=== PATIENT | male | born 1955 | race Caucasian/White ===

== ENCOUNTER 2018-08-02 17:07 | Emergency (ER) | payer OTHER, SELFPAY ==
--- NOTE | 2018-08-02 17:13 | PC.NURSE ---
Called for triage at 1710, pt not in waiting area. Pt was seen going to parking lot.
--- NOTE | 2018-08-02 17:24 | PC.NURSE ---
Pt has not returned to waiting room, 2nd call. no answer.
[2018-08-02 17:50] VITALS: BP 228/118; PULSE 97; RESP 18; TEMP 35.8; O2SAT 100; BMI 33.0
--- NOTE | 2018-08-02 18:03 | ED.OVERDOSE ---
HPI - Overdose General Chief Complaint: Toxicology Problem Stated Complaint: stated needs to detox Time Seen by Provider: 08/02/18 18:03 Source: patient Mode of arrival: ambulatory Limitations: no limitations History of Present Illness HPI Narrative: The patient is a heavy drinker, he admits to daily heavy drinking. He presents with mild abdominal pain. No nausea vomiting. He has no history of seizure activity, blackouts and does not remember a history of tremors. He does not feel well. He has diabetes, he is not eating well and taking care of him physical. he has no fever, chills, chest pain or dyspnea. He is not vomiting. He has no melena or GI discomfort otherwise. although in this area, he has lived in the [facility] for many years. He has undergone is stressful changes that have increased his alcohol consumption. He is now here hoping to improve himself. Related Data Previous Rx's Medication Instructions Recorded cephalexin 500 mg PO BID #20 cap 11/03/16 Allergies Allergy/AdvReac Type Severity Reaction Status Date / Time No Known Drug Allergies Allergy Verified 08/02/18 17:49 Review of Systems Review of Systems ROS Unobtainable: All systems reviewed & are unremarkable except as noted in HPI and below Constitutional Denies chills, Denies fever(s), Denies lethargy and Denies weakness Eyes Denies blurry vision and Denies loss of vision Cardiovascular Denies chest pain, Denies irregular heart rhythm, Denies lightheadedness, Denies palpitations, Denies dyspnea, Denies dyspnea on exertion and Denies orthopnea Respiratory Denies cough, Denies dyspnea, Denies dyspnea on exertion and Denies wheezing Gastrointestinal Gastrointestinal: Reports abdominal pain, Denies belching, Denies melena, Denies bloating, Denies nausea and Denies vomiting Musculoskeletal Denies back pain, Denies muscle weakness, Denies numbness and Denies tingling Integumentary/Breasts Denies pruritus, Denies erythema, Denies rash and Denies wounds Neurologic Denies loss of vision, Denies numbness, Denies tingling and Denies weakness Endocrine Denies palpitations Allergic/Immunologic Denies wheezing PFSH Medical History Diabetes (Acute) Hypertension (Acute) Surgical History No history of previous surgery (Acute) Social History Smoking Status: Never smoker alcohol intake: current Social History Smoking Status: Never smoker alcohol intake: current Exam Initial Vital Signs Initial Vital Signs: Vital Signs Temperature 96.4 F L 08/02/18 17:50 Pulse Rate 97 H 08/02/18 17:50 Respiratory Rate 18 08/02/18 17:50 Blood Pressure 228/118 H 08/02/18 17:50 Pulse Oximetry 100 08/02/18 17:50 Const General: cooperative, well developed, No well groomed and other ( he smells of alcohol.) Nutritional Appearance: well nourished Orientation: alert, awake, oriented x3 and not confused Limitations: other limitations ( Cooperative.) [facility] Head: normocephalic and atraumatic Nose: external nose normal Mouth: oral mucosae normal and moist mucous membranes Throat: posterior oropharynx normal, tonsils normal and uvula midline Eyes General: appearance normal, both eyes and all related structures Eyelids: eyelids normal Conjunctivae: conjunctivae normal Sclera: sclerae normal ( no icterus) and scleral abnormality Pupils: PERRL EOM: EOM intact bilaterally Chest Chest: normal inspection of the chest Resp Effort & Inspection: normal respiratory effort, able to speak in complete sentences, no respiratory distress and no use of accessory muscles Auscultation: clear to auscultation bilaterally, no rales, no rhonchi and no wheezes Cardio Rate: regular rate Rhythm: regular rhythm Heart Sounds: no click, no gallops, no murmurs and no rubs Pulses: normal peripheral pulses GI Inspection: non-distended Palpation: soft, no hepatosplenomegaly, No guarding, No pulsatile mass and No tender Auscultation: normal bowel sounds Back/Spine/Pelvis Back: No CVA tenderness Cervical Spine: cervical ROM normal and No pain with cervical ROM Thoracic/Lumbar Spine: thoracic and lumbar spine normal to inspection Skin General: no rashes or lesions noted, No jaundice and No petechiae Extrem Other: left toe amputation. Ft are vascularly intact, but lack light touch sensation. Course Course Narrative: the patient is awake, for more coherent. He is a little shaky. He is agreeable to going to detox from the ER. His medications are unknown. He will need medications to find, and possibly prescribed. He will need medications for detox. If the detox bed is obtained, the necessary meds will be prescribed by the incoming ER doctor. Orders Ordered: Discontinued Medications Sodium Chloride (Normal Saline 0.9%) 1,000 mls @ 1,000 mls/hr IV BOLUS ONE Stop: 08/02/18 19:02 Last Infusion: 08/02/18 20:07 Dose: 0 mls/hr Admin: 08/02/18 18:44 Dose: 1,000 mls/hr Thiamine HCl 100 mg/ Dextrose 51 mls @ 204 mls/hr IV NOW ONE Stop: 08/02/18 18:04 Last Infusion: 08/02/18 19:07 Dose: 0 mls/hr Admin: 08/02/18 18:44 Dose: 204 mls/hr Lorazepam (Ativan) 1 mg IV NOW ONE Stop: 08/03/18 02:13 Last Admin: 08/03/18 02:19 Dose: 1 mg Lorazepam (Ativan) 1 mg IV NOW ONE Stop: 08/03/18 03:19 Last Admin: 08/03/18 03:20 Dose: 1 mg Vital Signs - 8 hr 08/03/18 04:15 Pulse Rate 101 H Respiratory Rate 20 Blood Pressure [Left Arm] 154/93 H Pulse Oximetry 95 MDM - Overdose Lab Data Result diagrams: 08/02/18 18:35 08/02/18 18:35 Lab Results 08/02/18 08/02/18 08/02/18 Range/Units 18:35 18:35 20:21 WBC 4.7 (4.5-11.0) X10^3/uL RBC 4.68 (4.5-5.9) X10^6/uL Hgb 15.7 (13.5-17.5) g/dL Hct 46.4 (41-53) % MCV 99.1 (80-100) fL MCH 33.6 (26-34) PG MCHC 33.9 (30-36) % RDW 13.6 (11.6-14.8) % Plt Count 147 L (150-400) X10^3/uL Neut % (Auto) 58.9 (50-75) % Lymph % (Auto) 26.3 (25-40) % [place] % (Auto) 12.5 (3-14) % Eos % (Auto) 0.4 L (2-4) % Baso % (Auto) 1.9 (0-2) % Neut # (Auto) 2800 (9696-4427) /uL Lymph # (Auto) 1300 (5989-2777) /uL [place] # (Auto) 600 (0-900) /uL Eos # (Auto) 0 (0-450) /uL Baso # (Auto) 100 (0-100) /uL Sodium 140 (137-145) mmol/L Potassium 3.5 (3.4-5.1) mmol/L Chloride 97 L (98-107) mmol/L Carbon Dioxide 28 (22-32) mmol/L BUN 6 L (9-20) mg/dL Creatinine 0.70 (0.66-1.25) mg/dL Estimated GFR > 60.0 (>60) mL/min BUN/Creatinine Ratio 8.6 (6-22) Glucose 304 H (80-110) mg/dL Calcium 8.5 (8.4-10.2) mg/dL Magnesium 2.2 (1.6-2.3) mg/dL Total Bilirubin 1.2 (0.2-1.3) mg/dL Conjugated Bilirubin 0.0 (0.0-0.3) md/dL Unconjugated Bilirubin 0.5 (0.0-1.1) mg/dL AST 292 H (17-59) IU/L ALT 135 H (21-72) IU/L Alkaline Phosphatase 155 H (38-126) U/L Total Protein 7.7 (6.3-8.2) g/dL Albumin 4.3 (3.5-5.0) g/dL Globulin 3.4 (1.7-4.1) g/dL Albumin/Globulin Ratio 1.3 (1.0-2.8) Lipase 133 (23-300) U/L Urine Opiates Screen Negative (Negative) Ur Oxycodone Screen Negative (Negative) Urine Methadone Screen Negative (Negative) Ur Barbiturates Screen Negative (Negative) U Tricyclic Antidepress Negative (Negative) Ur Phencyclidine Scrn Negative (Negative) Ur Amphetamines Screen Negative (Negative) U Methamphetamines Scrn Negative (Negative) Ur MDMA Scrn (Ecstasy) Negative (Negative) U Benzodiazepines Scrn Negative (Negative) Urine Cocaine Screen Negative (Negative) U Marijuana (THC) Screen Negative (Negative) Ethyl Alcohol 360 mg/dL Urine Dip Bedside Urine Glucose 250 mg/dl Bedside Urine Bilirubin - Negative Bedside Urine Ketone - Negative Urine Specific [place] 1.005 Bedside Urine Occult Blood - Negative Bedside Urine pH 6.0 Bedside Urine Protein - Negative Bedside Urine Urobilinogen - Negative Bedside Urine Nitrite - Negative Bedside Urine Leukocytes - Negative Esterase ECG Data Attestation: I personally reviewed and interpreted this ECG as follows: ( Normal sinus rhythm rate [address] T wave changes. Pattern consistent with pulmonary disease. IVCD. No ectopy. No acute ST T wave elevations.) Discharge Plan Departure Patient Disposition: Home Clinical Impression: Alcoholism Diabetes Qualifiers: Diabetes mellitus type: type 2 Diabetes mellitus shelter insulin use: unspecified shelter insulin use status Diabetes mellitus complication status: with neurologic complications Diabetes mellitus complication detail: with unspecified neuropathy Qualified Code(s): E11.40 - Type 2 diabetes mellitus with diabetic neuropathy, unspecified Instructions: Alcohol Use Disorder Activity Restrictions/Additional Instructions: You will be discharged from the ER, we have discussed a detox center. If the appropriate bed is available, you will be prescribed meds and help arrange you going to the detox center. IV detox center does not have availability for you, you will be discharged and you need to follow up with her own doctor for these arrangements. Return to an ER as necessary. Prescriptions: No Action cephalexin 500 MG capsule 500 mg PO BID Qty: 20 RF: 0
[2018-08-02] MEDS: SODIUM CHLORIDE 0.9% 1,000 ML 1000 ML IV (18:44)
[2018-08-02] MEDS: THIAMINE 100 MG in DEXTROSE 5 % IN WATER 50 ML 204 ML IV (18:44)
[2018-08-02 19:06] LABS: Alanine Aminotransferase 135 IU/L (21-72); Albumin 4.3 g/dL (3.5-5.0); Albumin Globulin Ratio 1.3 (1.0-2.8); Alkaline Phosphatase 155 U/L (38-126); Aspartate Aminotransferase 292 IU/L (17-59); BUN Creatinine Ratio 8.6 (6-22); Bilirubin Total 1.2 mg/dL (0.2-1.3); Bilirubin Unconjugated 0.5 mg/dL (0.0-1.1); Blood Urea Nitrogen 6 mg/dL (9-20); Calcium 8.5 mg/dL (8.4-10.2); Carbon Dioxide 28 mmol/L (22-32); Chloride 97 mmol/L (98-107); Estimated Glomerular Filt Rate > 60.0 mL/min (>60); Globulin 3.4 g/dL (1.7-4.1); Glucose 304 mg/dL (80-110); HEMOLYSIS < 15 (0-50); Lipase 133 U/L (23-300); Magnesium 2.2 mg/dL (1.6-2.3); Potassium 3.5 mmol/L (3.4-5.1); Sodium 140 mmol/L (137-145); Total Protein 7.7 g/dL (6.3-8.2)
[2018-08-02 19:13] LABS: Ethanol (ETOH) 360 mg/dL
[2018-08-02 19:21] LABS: Add Manual Diff / Slide Review NO; Basophils Absolute Auto 100 /uL (0-100); Basophils Percent Auto 1.9 % (0-2); Eosinophils Absolute Auto 0 /uL (0-450); Eosinophils Percent Auto 0.4 % (2-4); Hematocrit 46.4 % (41-53); Hemoglobin 15.7 g/dL (13.5-17.5); Lymphocytes Absolute Auto 1300 /uL (1100-4500); Lymphocytes Percent Auto 26.3 % (25-40); Mean Corpuscular HGB Conc 33.9 % (30-36); Mean Corpuscular Hemoglobin 33.6 PG (26-34); Mean Corpuscular Volume 99.1 fL (80-100); Monocytes Absolute Auto 600 /uL (0-900); Monocytes Percent Auto 12.5 % (3-14); Neutrophils Absolute Auto 2800 /uL (1500-7000); Neutrophils Percent Auto 58.9 % (50-75); Red Blood Cell Count 4.68 X10^6/uL (4.5-5.9); Red Cell Distribution Width 13.6 % (11.6-14.8); White Blood Cell Count 4.7 X10^3/uL (4.5-11.0)
[2018-08-02 19:23] LABS: Platelet Count 147 X10^3/uL (150-400)
[2018-08-02 20:19] VITALS: BP 216/115; PULSE 93; RESP 18; O2SAT 98
[2018-08-02 20:22] VITALS: BP 198/100
--- NOTE | 2018-08-02 20:22 | PC.NURSE ---
assumed care of pt and report received from HIEN Swan for continuation of care. Pt awake and states needs to use restroom. IVF of NS completed. Pt ambulated to the bathroom in stable gait. Oriented x3, reports I wanted to run away from everything to get help but ended up here. he states he is from [place]. Calm and cooperative. CIWA test done with 0 result. Noted HTN and pt reports is not compliant with his medications-Metoprolol and Lisinopril of unknown dose. Urine obtained and sent out to lab.
[2018-08-02 20:35] LABS: Urine Amphetamines Negative (Negative); Urine Barbiturates Negative (Negative); Urine Benzodiazepines Negative (Negative); Urine Cocaine Negative (Negative); Urine MDMA Negative (Negative); Urine Methadone Negative (Negative); Urine Methamphetamines Negative (Negative); Urine Morphine/Opi cutoff 2000 Negative (Negative); Urine Oxycodone Negative (Negative); Urine Phencyclidine Negative (Negative); Urine Tetrahydrocannabinol Negative (Negative); Urine Tricyclic Antidepressant Negative (Negative)
[2018-08-02 21:49] VITALS: BP 144/89; PULSE 92; RESP 20; TEMP 36.4; O2SAT 100
[2018-08-02 22:51] VITALS: BP 149/91; PULSE 93; RESP 14; O2SAT 98
--- NOTE | 2018-08-02 23:25 | PC.NURSE ---
Escorted pt to his car to retrieve his cell phone. Pt able to ambulate in stable gait. Pt cooperative and appropriate. Provided oral hydration.
[2018-08-03] MEDS: LORazepam 2 MG/ML SYRINGE 1 MG IV ×2 (02:19→03:20)
--- NOTE | 2018-08-03 03:12 | PC.NURSE ---
Pt medicated with Ativan 1mg for feeling anxious and agitation and mild tremor. Pt reports feeling a little better but requesting for additional dose. Pt appears to be calmer and cooperative at this time.
--- NOTE | 2018-08-03 03:50 | PC.NURSE ---
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 Escorted pt to parking lot. Pt asked this RN whether he could have a can of beer in the car. Pt requested to go back to ER for further evaluation and treatment. Pt reports feeling not well at this time. Pt currently under multiple situational stress and lost everything.
--- NOTE | 2018-08-03 03:52 | PC.NURSE ---
Pt appears to be resting at this time with eupnea after two doses of Ativan 1mg IV.
[2018-08-03 04:15] VITALS: BP 154/93; PULSE 101; RESP 20; O2SAT 95
[2018-08-03] MEDS: LORazepam 0.5 MG TABLET 1 MG PO (08:07)
[2018-08-03 09:56] VITALS: BP 205/124; PULSE 117; RESP 22; O2SAT 96
[2018-08-03] MEDS: LORazepam 0.5 MG TABLET 2 MG PO ×2 (10:01→12:08)
[2018-08-03 11:30] VITALS: BP 194/102; PULSE 97; RESP 16; O2SAT 98
[2018-08-03 13:10] VITALS: BP 192/108; PULSE 116; RESP 20; O2SAT 97
== END 2018-08-03 13:12 | disposition home or self-care (01) ==
PROVIDERS: Emergency Medicine; Emergency Provider Emergency Medicine
DX: F10.20 Alcohol dependence, uncomplicated (principal)
CPT/HCPCS: 36591; 80053; 80076; 80305; 80320; 81003; 82962; 83690; 83735; 85025; 93005; 96361; 96365; 96375; 96376; 99284; 99285; J2060

== ENCOUNTER 2018-08-03 15:09 | Inpatient (IN) | payer OTHER, MEDICARE, SELFPAY ==
[2018-08-03] VITALS (9 sets, daily range): BP systolic 160–213; BP diastolic 76–154; PULSE 67–120; RESP 19–24; TEMP 36.7–36.9; O2SAT 94–97; BMI 33.0
[2018-08-03 15:56] LABS: Add Manual Diff / Slide Review NO; Basophils Absolute Auto 100 /uL (0-100); Basophils Percent Auto 1.1 % (0-2); Eosinophils Absolute Auto 0 /uL (0-450); Eosinophils Percent Auto 0.1 % (2-4); Hematocrit 44.3 % (41-53); Hemoglobin 15.3 g/dL (13.5-17.5); Lymphocytes Absolute Auto 700 /uL (1100-4500); Lymphocytes Percent Auto 11.5 % (25-40); Mean Corpuscular HGB Conc 34.6 % (30-36); Mean Corpuscular Hemoglobin 34.1 PG (26-34); Mean Corpuscular Volume 98.4 fL (80-100); Monocytes Absolute Auto 800 /uL (0-900); Monocytes Percent Auto 12.4 % (3-14); Neutrophils Absolute Auto 4800 /uL (1500-7000); Neutrophils Percent Auto 74.9 % (50-75); Platelet Count 147 X10^3/uL (150-400); Red Cell Distribution Width 13.4 % (11.6-14.8); White Blood Cell Count 6.5 X10^3/uL (4.5-11.0)
[2018-08-03] MEDS: SODIUM CHLORIDE 0.9% 1,000 ML 1000 ML IV (15:58)
[2018-08-03] MEDS: LORazepam 2 MG/ML SYRINGE IV ×2 (15:58→22:13)
[2018-08-03 16:01] LABS: Alanine Aminotransferase 152 IU/L (21-72); Albumin 4.5 g/dL (3.5-5.0); Albumin Globulin Ratio 1.3 (1.0-2.8); Alkaline Phosphatase 173 U/L (38-126); Aspartate Aminotransferase 421 IU/L (17-59); BUN Creatinine Ratio 11.4 (6-22); Bilirubin Total 2.5 mg/dL (0.2-1.3); Blood Urea Nitrogen 8 mg/dL (9-20); Calcium 8.8 mg/dL (8.4-10.2); Carbon Dioxide 23 mmol/L (22-32); Chloride 96 mmol/L (98-107); Estimated Glomerular Filt Rate > 60.0 mL/min (>60); Ethanol (ETOH) < 10 mg/dL; Globulin 3.5 g/dL (1.7-4.1); Glucose 182 mg/dL (80-110); Lipase 92 U/L (23-300); Sodium 134 mmol/L (137-145)
[2018-08-03 16:02] LABS: HEMOLYSIS 64 (0-50); Potassium 3.8 mmol/L (3.4-5.1)
[2018-08-03] MEDS: MAGNESIUM SULFATE 2 GM, FOLIC ACID 1 MG, THIAMINE 100 MG, MULTIVITAMIN 10 ML in SODIUM ... IV (16:14)
--- NOTE | 2018-08-03 16:15 | ED.ALCOHOL ---
HPI - Alcohol General Chief Complaint: Toxicology Problem Stated Complaint: rehab is sending him back for treatment, ETOH Time Seen by Provider: 08/03/18 15:42 Source: patient Mode of arrival: wheelchair Limitations: no limitations History of Present Illness HPI narrative: Patient is a 63-year-old male discharged from this facility an hour ago to go to detox. His he had been here for 18 hr with alcohol withdrawal he did start to have some symptoms he was given Ativan for it. By the time he reached the rehab detox facility they said his detox was above their ability. He was sent back for admission. Patient is shaking denies any hallucinations, he is tachycardic. He denies any other symptoms at this time MD complaint: alcohol withdrawal Last drink: hours (ago) Chronic alcohol use: Yes Previous visits for alcohol intoxication: Yes Recent trauma: No Related Data Home Medications Medication Instructions Recorded Confirmed carvedilol 12.5 mg PO BID 08/03/18 08/03/18 losartan 50 mg PO DAILY 08/03/18 08/03/18 Previous Rx's Medication Instructions Recorded lorazepam [Ativan] 1 mg PO QD-BID PRN #35 tab 08/03/18 Allergies Allergy/AdvReac Type Severity Reaction Status Date / Time No Known Drug Allergies Allergy Verified 08/03/18 15:41 Review of Systems Review of Systems ROS Unobtainable: All systems reviewed & are unremarkable except as noted in HPI and below Constitutional Denies chills, Denies fever(s), Denies lethargy and Denies weakness ENT Ears, Nose, Mouth, and Throat: Denies change in voice, Denies neck pain and Denies sore throat Cardiovascular Denies chest pain, Denies irregular heart rhythm, Denies lightheadedness, Denies palpitations, Denies dyspnea, Denies dyspnea on exertion and Denies orthopnea Respiratory Denies cough, Denies dyspnea, Denies dyspnea on exertion and Denies wheezing Gastrointestinal Gastrointestinal: Denies abdominal pain, Denies change in bowel habits, Denies diarrhea, Denies nausea and Denies vomiting Genitourinary Denies hematuria, Denies flank pain, Denies urinary incontinence and Denies urinary urgency Musculoskeletal Denies neck pain Integumentary/Breasts Denies pruritus, Denies erythema, Denies rash and Denies wounds Neurologic Denies weakness Psychiatric Reports as per HPI, Denies homicidal ideation and Denies suicidal ideation Endocrine Denies palpitations Allergic/Immunologic Denies wheezing PFSH Medical History Amputated great toe of left foot (Acute) Diabetic neuropathy (Acute) Alcoholism /alcohol abuse (Acute) Hypertension (Acute) Diabetes (Acute) History of amputation of toe (Acute) Surgical History History of appendectomy (Acute) History of tonsillectomy (Acute) No history of previous surgery (Acute) Social History household members: none Smoking Status: Never smoker alcohol intake: current Social History household members: none Smoking Status: Never smoker alcohol intake: current Exam Initial Vital Signs Initial Vital Signs: Vital Signs Temperature 98.5 F 08/03/18 15:41 Pulse Rate 120 H 08/03/18 15:41 Respiratory Rate 20 08/03/18 15:41 Blood Pressure 204/115 H 08/03/18 15:41 Pulse Oximetry 97 08/03/18 15:41 GENERAL: alert elderly male visibly shaking alert oriented x3 HEENT: Head atraumatic,EOMI, pupils reactive, face symmetric CARDIOVASCULAR: Regular rate and rhythm without murmurs, rubs or gallops. RESPIRATORY: Breath sounds equal bilaterally, no wheezes rales or rhonchi. ABDOMEN: Soft, nontender. Normoactive bowel sounds all 4 quadrants. No guarding or rebound. EXTREMITIES: Normal range of motion, no clubbing or edema. Neurovascularly intact NEUROLOGICAL: alert oriented tremors moving all extremities SKIN: Warm, dry, no laceration, no petechiae, no rashes or lesions. Course Orders Ordered: ED Orders 08/03/18 15:35 Complete Blood Count AUTO DIFF Stat Comprehensive Metabolic Panel Stat Ethanol (ETOH) Stat Lipase Stat 08/03/18 16:30 Consult to Dietitian, Adult Routine 08/03/18 16:32 Education, smoking cessation ONGOING 08/03/18 16:35 Consult to Discharge Planning Routine Consult to International Affairs Vice President Routine 08/03/18 18:54 Consult to Dietitian, Adult Routine 08/04/18 Complete Blood Count AUTO DIFF Routine Comprehensive Metabolic Panel Routine Hemoglobin A1C % Routine Magnesium Routine Carvedilol (Coreg) 12.5 mg PO BID LYNDA Clonidine HCl (Catapres) 0.1 mg PO Q4HR PRN PRN Reason: Alcohol Withdrawal Dextrose (D50w) 25 gm IV PRN PRN; Protocol PRN Reason: Hypoglycemia Enoxaparin Sodium (Lovenox) 40 mg SUBCUT DAILY LYNDA Folic Acid (Folic Acid) 1 mg PO DAILY LYNDA Haloperidol (Haldol) 5 mg IV Q1HR PRN PRN Reason: Hallucinations Magnesium Sulfate 2 gm/ Folic Acid 1 mg/ Thiamine HCl 100 mg / Multivitamins 10 ml/ Sodium Chloride 1,015.2 mls @ 125 mls/hr IV NOW ONE Stop: 08/03/18 23:50 Last Admin: 08/03/18 16:14 Dose: 125 mls/hr Sodium Chloride (Normal Saline 0.9%) 1,000 mls @ 100 mls/hr IV CONT LYNDA Insulin Aspart (Novolog Flexpen) 0 unit SUBCUT ACHS LYNDA; Protocol Lorazepam (Ativan) 1 mg PO Q8HR LYNDA; Protocol Losartan Potassium (Cozaar) 50 mg PO DAILY [facility] Multivitamins (Tab-A-Andrea) 1 tab PO DAILY [facility] Ondansetron HCl (Zofran Odt) 4 mg PO Q8HR PRN PRN Reason: Nausea And Vomiting Ondansetron HCl (Zofran) 4 mg IV Q8HR PRN PRN Reason: Nausea And Vomiting Thiamine HCl (Vitamin B-1) 100 mg PO DAILY LYNDA Stop: 08/06/18 09:01 Discontinued Medications Sodium Chloride (Normal Saline 0.9%) 1,000 mls @ 1,000 mls/hr IV BOLUS ONE Stop: 08/03/18 16:41 Last Infusion: 08/03/18 17:01 Dose: 0 mls/hr Admin: 08/03/18 15:58 Dose: 1,000 mls/hr Lorazepam (Ativan) 2 mg IV NOW ONE Stop: 08/03/18 15:43 Last Admin: 08/03/18 15:58 Dose: 2 mg Vital Signs - 8 hr 08/03/18 15:41 08/03/18 16:32 08/03/18 17:45 Temperature 98.5 F Pulse Rate 120 H 108 H 114 H Respiratory Rate 20 24 20 Blood Pressure 204/115 H 197/110 H Blood Pressure [Left Arm] 190/154 H Pulse Oximetry 97 94 96 08/03/18 18:18 Temperature 98.3 F Pulse Rate 92 H Respiratory Rate 19 Blood Pressure 160/105 H Blood Pressure [Left Arm] Pulse Oximetry 96 MDM - Alcohol Medical Records Attestation: I reviewed the patient's medical records. Lab Data Attestation: I reviewed the patient's lab results. Result diagrams: 08/03/18 15:35 08/03/18 15:35 Labs: Lab Results 08/03/18 08/03/18 Range/Units 15:35 15:35 WBC 6.5 (4.5-11.0) X10^3/uL RBC 4.50 (4.5-5.9) X10^6/uL Hgb 15.3 (13.5-17.5) g/dL Hct 44.3 (41-53) % MCV 98.4 (80-100) fL MCH 34.1 H (26-34) PG MCHC 34.6 (30-36) % RDW 13.4 (11.6-14.8) % Plt Count 147 L (150-400) X10^3/uL Neut % (Auto) 74.9 (50-75) % Lymph % (Auto) 11.5 L (25-40) % [place] % (Auto) 12.4 (3-14) % Eos % (Auto) 0.1 L (2-4) % Baso % (Auto) 1.1 (0-2) % Neut # (Auto) 4800 (2320-4966) /uL Lymph # (Auto) 700 L (4383-2338) /uL [place] # (Auto) 800 (0-900) /uL Eos # (Auto) 0 (0-450) /uL Baso # (Auto) 100 (0-100) /uL Sodium 134 L (137-145) mmol/L Potassium 3.8 (3.4-5.1) mmol/L Chloride 96 L (98-107) mmol/L Carbon Dioxide 23 (22-32) mmol/L BUN 8 L (9-20) mg/dL Creatinine 0.70 (0.66-1.25) mg/dL Estimated GFR > 60.0 (>60) mL/min BUN/Creatinine Ratio 11.4 (6-22) Glucose 182 H D (80-110) mg/dL Calcium 8.8 (8.4-10.2) mg/dL Total Bilirubin 2.5 H (0.2-1.3) mg/dL AST 421 H (17-59) IU/L ALT 152 H (21-72) IU/L Alkaline Phosphatase 173 H (38-126) U/L Total Protein 8.0 (6.3-8.2) g/dL Albumin 4.5 (3.5-5.0) g/dL Globulin 3.5 (1.7-4.1) g/dL Albumin/Globulin Ratio 1.3 (1.0-2.8) Lipase 92 (23-300) U/L Ethyl Alcohol < 10 mg/dL Point of Care Testing Glucose POC 171 MDM Narrative Medical decision making narrative: patient tachycardic were remains tremulous. Actively going through alcohol withdrawal. Dr. tello happily accepts. EMERSON-Lonnie for Alcohol Withdrawal from [employer] on 08/03/2018 All calculations should be rechecked by clinician prior to use RESULT SUMMARY: 12 points Patients with scores ?9 may require medication for withdrawal. INPUTS: Nausea/vomiting ?> 2 = (More severe symptoms) Tremor ?> 5 = (More severe symptoms) Paroxysmal sweats ?> 4 = Beads of sweat obvious on forehead Anxiety ?> 1 = Mildly anxious Agitation ?> 0 = Normal activity Tactile disturbances ?> 0 = None Auditory disturbances ?> 0 = Not present Visual disturbances ?> 0 = Not present Headache/fullness in head ?> 0 = Not Present Orientation/clouding of sensorium ?> 0 = Oriented, can do serial additions Discharge Plan Departure Patient Disposition: Admitted As Inpatient Clinical Impression: Alcohol withdrawal syndrome Qualifiers: Complication of substance-induced condition: uncomplicated Qualified Code(s): F10.230 - Alcohol dependence with withdrawal, uncomplicated Discharge Date/Time: 08/03/18 17:45 Interventions: ED Discharge Assessment Last Done: 08/03/18 17:45 Admit Date/Time: 08/03/18 16:04 Admit Provider: Shelby Laurent
--- NOTE | 2018-08-03 16:20 | ED_ITS ---
HPI - Alcohol General Chief Complaint: Toxicology Problem Stated Complaint: rehab is sending him back for treatment, ETOH Time Seen by Provider: 08/03/18 15:42 Source: patient Mode of arrival: wheelchair Limitations: no limitations History of Present Illness HPI narrative: Patient is a 63-year-old male discharged from this facility an hour ago to go to detox. His he had been here for 18 hr with alcohol withdrawal he did start to have some symptoms he was given Ativan for it. By the time he reached the rehab detox facility they said his detox was above their ability. He was sent back for admission. Patient is shaking denies any hallucinations, he is tachycardic. He denies any other symptoms at this time MD complaint: alcohol withdrawal Last drink: hours (ago) Chronic alcohol use: Yes Previous visits for alcohol intoxication: Yes Recent trauma: No Related Data Home Medications Medication Instructions Recorded Confirmed carvedilol 12.5 mg PO BID 08/03/18 08/03/18 losartan 50 mg PO DAILY 08/03/18 08/03/18 Previous Rx's Medication Instructions Recorded lorazepam [Ativan] 1 mg PO QD-BID PRN #35 tab 08/03/18 Allergies Allergy/AdvReac Type Severity Reaction Status Date / Time No Known Drug Allergies Allergy Verified 08/03/18 15:41 Review of Systems Review of Systems ROS Unobtainable: All systems reviewed & are unremarkable except as noted in HPI and below Constitutional Denies chills, Denies fever(s), Denies lethargy and Denies weakness ENT Ears, Nose, Mouth, and Throat: Denies change in voice, Denies neck pain and Den ies sore throat Cardiovascular Denies chest pain, Denies irregular heart rhythm, Denies lightheadedness, Denies palpitations, Denies dyspnea, Denies dyspnea on exertion and Denies orthopnea Respiratory Denies cough, Denies dyspnea, Denies dyspnea on exertion and Denies wheezing Gastrointestinal Gastrointestinal: Denies abdominal pain, Denies change in bowel habits, Denies diarrhea, Denies nausea and Denies vomiting Genitourinary Denies hematuria, Denies flank pain, Denies urinary incontinence and Denies urinary urgency Musculoskeletal Denies neck pain Integumentary/Breasts Denies pruritus, Denies erythema, Denies rash and Denies wounds Neurologic Denies weakness Psychiatric Reports as per HPI, Denies homicidal ideation and Denies suicidal ideation Endocrine Denies palpitations Allergic/Immunologic Denies wheezing PFSH Medical History Amputated great toe of left foot (Acute) Diabetic neuropathy (Acute) Alcoholism /alcohol abuse (Acute) Hypertension (Acute) Diabetes (Acute) History of amputation of toe (Acute) Surgical History History of appendectomy (Acute) History of tonsillectomy (Acute) No history of previous surgery (Acute) Social History household members: none Smoking Status: Never smoker alcohol intake: current Social History household members: none Smoking Status: Never smoker alcohol intake: current Exam Initial Vital Signs Initial Vital Signs: Vital Signs Temperature 98.5 F 08/03/18 15:41 Pulse Rate 120 H 08/03/18 15:41 Respiratory Rate 20 08/03/18 15:41 Blood Pressure 204/115 H 08/03/18 15:41 Pulse Oximetry 97 08/03/18 15:41 GENERAL: alert elderly male visibly shaking alert oriented x3 HEENT: Head atraumatic,EOMI, pupils reactive, face symmetric CARDIOVASCULAR: Regular rate and rhythm without murmurs, rubs or gallops. RESPIRATORY: Breath sounds equal bilaterally, no wheezes rales or rhonchi. ABDOMEN: Soft, nontender. Normoactive bowel sounds all 4 quadrants. No guarding or rebound. EXTREMITIES: Normal range of motion, no clubbing or edema. Neurovascularly intact NEUROLOGICAL: alert oriented tremors moving all extremities SKIN: Warm, dry, no laceration, no petechiae, no rashes or lesions. Course Orders Ordered: ED Orders 08/03/18 15:35 Complete Blood Count AUTO DIFF Stat Comprehensive Metabolic Panel Stat Ethanol (ETOH) Stat Lipase Stat 08/03/18 16:30 Consult to Dietitian, Adult Routine 08/03/18 16:32 Education, smoking cessation ONGOING 08/03/18 16:35 Consult to Discharge Planning Routine Consult to Human Factors Advisor Lead Routine 08/03/18 18:54 Consult to Dietitian, Adult Routine 08/04/18 Complete Blood Count AUTO DIFF Routine Comprehensive Metabolic Panel Routine Hemoglobin A1C % Routine Magnesium Routine Carvedilol (Coreg) 12.5 mg PO BID LYNDA Clonidine HCl (Catapres) 0.1 mg PO Q4HR PRN PRN Reason: Alcohol Withdrawal Dextrose (D50w) 25 gm IV PRN PRN; Protocol PRN Reason: Hypoglycemia Enoxaparin Sodium (Lovenox) 40 mg SUBCUT DAILY LYNDA Folic Acid (Folic Acid) 1 mg PO DAILY LYNDA Haloperidol (Haldol) 5 mg IV Q1HR PRN PRN Reason: Hallucinations Magnesium Sulfate 2 gm/ Folic Acid 1 mg/ Thiamine HCl 100 mg / Multivitamins 10 ml/ Sodium Chloride 1,015.2 mls @ 125 mls/hr IV NOW ONE Stop: 08/03/18 23:50 Last Admin: 08/03/18 16:14 Dose: 125 mls/hr Sodium Chloride (Normal Saline 0.9%) 1,000 mls @ 100 mls/hr IV CONT LYNDA Insulin Aspart (Novolog Flexpen) 0 unit SUBCUT ACHS LYNDA; Protocol Lorazepam (Ativan) 1 mg PO Q8HR LYNDA; Protocol Losartan Potassium (Cozaar) 50 mg PO DAILY [facility] Multivitamins (Tab-A-Andrea) 1 tab PO DAILY [facility] Ondansetron HCl (Zofran Odt) 4 mg PO Q8HR PRN PRN Reason: Nausea And Vomiting Ondansetron HCl (Zofran) 4 mg IV Q8HR PRN PRN Reason: Nausea And Vomiting Thiamine HCl (Vitamin B-1) 100 mg PO DAILY [facility] Stop: 08/06/18 09:01 Discontinued Medications Sodium Chloride (Normal Saline 0.9%) 1,000 mls @ 1,000 mls/hr IV BOLUS ONE Stop: 08/03/18 16:41 Last Infusion: 08/03/18 17:01 Dose: 0 mls/hr Admin: 08/03/18 15:58 Dose: 1,000 mls/hr Lorazepam (Ativan) 2 mg IV NOW ONE Stop: 08/03/18 15:43 Last Admin: 08/03/18 15:58 Dose: 2 mg Vital Signs - 8 hr 08/03/18 15:41 08/03/18 16:32 08/03/18 17:45 Temperature 98.5 F Pulse Rate 120 H 108 H 114 H Respiratory Rate 20 24 20 Blood Pressure 204/115 H 197/110 H Blood Pressure [Left Arm] 190/154 H Pulse Oximetry 97 94 96 08/03/18 18:18 Temperature 98.3 F Pulse Rate 92 H Respiratory Rate 19 Blood Pressure 160/105 H Blood Pressure [Left Arm] Pulse Oximetry 96 MDM - Alcohol Medical Records Attestation: I reviewed the patient's medical records. Lab Data Attestation: I reviewed the patient's lab results. Result diagrams: 08/03/18 15:35 08/03/18 15:35 Labs: Lab Results 08/03/18 08/03/18 Range/Units 15:35 15:35 WBC 6.5 (4.5-11.0) X10^3/uL RBC 4.50 (4.5-5.9) X10^6/uL Hgb 15.3 (13.5-17.5) g/dL Hct 44.3 (41-53) % MCV 98.4 (80-100) fL MCH 34.1 H (26-34) PG MCHC 34.6 (30-36) % RDW 13.4 (11.6-14.8) % Plt Count 147 L (150-400) X10^3/uL Neut % (Auto) 74.9 (50-75) % Lymph % (Auto) 11.5 L (25-40) % [place] % (Auto) 12.4 (3-14) % Eos % (Auto) 0.1 L (2-4) % Baso % (Auto) 1.1 (0-2) % Neut # (Auto) 4800 (0848-3475) /uL Lymph # (Auto) 700 L (4366-3829) /uL [place] # (Auto) 800 (0-900) /uL Eos # (Auto) 0 (0-450) /uL Baso # (Auto) 100 (0-100) /uL Sodium 134 L (137-145) mmol/L Potassium 3.8 (3.4-5.1) mmol/L Chloride 96 L (98-107) mmol/L Carbon Dioxide 23 (22-32) mmol/L BUN 8 L (9-20) mg/dL Creatinine 0.70 (0.66-1.25) mg/dL Estimated GFR > 60.0 (>60) mL/min BUN/Creatinine Ratio 11.4 (6-22) Glucose 182 H D (80-110) mg/dL Calcium 8.8 (8.4-10.2) mg/dL Total Bilirubin 2.5 H (0.2-1.3) mg/dL AST 421 H (17-59) IU/L ALT 152 H (21-72) IU/L Alkaline Phosphatase 173 H (38-126) U/L Total Protein 8.0 (6.3-8.2) g/dL Albumin 4.5 (3.5-5.0) g/dL Globulin 3.5 (1.7-4.1) g/dL Albumin/Globulin Ratio 1.3 (1.0-2.8) Lipase 92 (23-300) U/L Ethyl Alcohol < 10 mg/dL Point of Care Testing Glucose POC 171 MDM Narrative Medical decision making narrative: patient tachycardic were remains tremulous. Actively going through alcohol withdrawal. Dr. tello happily accepts. EMERSON-Lonnie for Alcohol Withdrawal from [employer] on 08/03/2018 All calculations should be rechecked by clinician prior to use RESULT SUMMARY: 12 points Patients with scores ?9 may require medication for withdrawal. INPUTS: Nausea/vomiting ?> 2 = (More severe symptoms) Tremor ?> 5 = (More severe symptoms) Paroxysmal sweats ?> 4 = Beads of sweat obvious on forehead Anxiety ?> 1 = Mildly anxious Agitation ?> 0 = Normal activity Tactile disturbances ?> 0 = None Auditory disturbances ?> 0 = Not present Visual disturbances ?> 0 = Not present Headache/fullness in head ?> 0 = Not Present Orientation/clouding of sensorium ?> 0 = Oriented, can do serial additions Discharge Plan Departure Patient Disposition: Admitted As Inpatient Clinical Impression: Alcohol withdrawal syndrome Qualifiers: Complication of substance-induced condition: uncomplicated Qualified Code(s): F10.230 - Alcohol dependence with withdrawal, uncomplicated Discharge Date/Time: 08/03/18 17:45 Interventions: ED Discharge Assessment Last Done: 08/03/18 17:45 Admit Date/Time: 08/03/18 16:04 Admit Provider: Shelby Laurent
--- NOTE | 2018-08-03 16:38 | PM.HP.1 ---
History of Present Illness Date Patient Seen: 08/03/18 Time Patient Seen: 16:40 Chief complaint: rehab is sending him back for treatment, ETOH Narrative: This is a 63-year-old male with an apparent long history of alcoholism who is in acute alcohol withdrawal and was unable to be treated at the detox unit because of his physical symptoms. He was in the emergency department last night and then was placed at the alcohol withdrawal treatment unit this morning and was then sent back to the emergency department because of his symptoms. He has been sweaty and shaking with a CIWA score of 15. He tells me that he lives in [place] and that his primary care physician is at the [facility], but he recently moved here to live on a sailboat, although he is still living in a motel room at this time. 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 He drinks 3 quarts a day of Coors beer or essentially he says ?24 pack a day?. He also has diabetes with significant neuropathy and previous infections in his feet that led to amputation of several toes. He used to take metformin but stopped about 6 months ago because of diarrhea and has not resumed. He does not know what his A1c or his sugars have been. Patient History Medical History Amputated great toe of left foot (Acute) Diabetic neuropathy (Acute) Alcoholism /alcohol abuse (Acute) Hypertension (Acute) Diabetes (Acute) History of amputation of toe (Acute) Surgical History History of appendectomy (Acute) History of tonsillectomy (Acute) No history of previous surgery (Acute) Social History Smoking Status: Never smoker alcohol intake: current Family & Social History Family history unavailable: Yes Social History: He is adopted so does not know any family history. He has 3 adult children all living in [place], 1 of them in halfway. He is homeless, currently living in a motel room, with plans to move into a sailboat. 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 He drinks 24 Coors beers a day and occasional marijuana. He denies smoking Tobacco & Substance use: Smoking Status Never smoker alcohol intake current alcohol intake frequency 3 or more drinks per day Substance Use Type does not use Meds Home Medications Medication Instructions Recorded Confirmed Type carvedilol 12.5 mg PO BID 08/03/18 08/03/18 History lorazepam [Ativan] 1 mg PO QD-BID PRN #35 tab 08/03/18 08/03/18 Rx losartan 50 mg PO DAILY 08/03/18 08/03/18 History Allergies Allergy/AdvReac Type Severity Reaction Status Date / Time No Known Drug Allergies Allergy Verified 08/03/18 15:41 Review of Systems Review of Systems Positive for tremor, sweating, agitation. Negative for fevers, chills, coughing, chest pain, abdominal pain, nausea, vomiting, diarrhea, bleeding, dysuria, rashes, joint pain, seizures, headaches, trouble talking, new allergies. All systems reviewed & are unremarkable except as noted in HPI and below Exam Vital Signs (past 8 hours): - 08/03/18 15:41 Temperature 98.5 F Pulse Rate 120 H Respiratory Rate 20 Blood Pressure 204/115 H Pulse Oximetry 97 Oxygen Delivery Method Room Air Narrative Exam Narrative: He is alert, oriented x3, and in moderate distress from alcohol withdrawal. His tremor is only slight. His asterixis is just barely there. Pupils are equally round and reactive to light and accommodation. Sclerae are pink and nonicteric. Extraocular muscles are intact. His eyes make a Saccade movement both up and down and side to side. No lymph nodes are felt head, neck, supraclavicular area. There is no thyromegaly. JVD is less than 6 cm and no carotid bruits are heard. Heart is regular rate and rhythm without murmur. Lungs are clear to auscultation bilaterally Abdomen is soft, nontender, no organomegaly, bowel sounds active. Extremities have no ankle edema. The left large toe and 2nd toe are amputated without residual ulcerations noted on either foot. Skin no rashes or jaundice. Noting the amputations on the left foot. No angiomata seen. Cranial nerves 2-12 tested intact. Motor function is 5/5 throughout. Deep tendon reflexes are symmetric and normal. There is a fine tremor of the outstretched arms. His voice is also tremulous and low volume. Sensation is grossly intact in his feet except for very fine sensation. Objective Labs Result Diagrams: 08/03/18 15:35 08/03/18 15:35 Labs: Laboratory Results - last 24 hr 08/03/18 08/03/18 15:35 15:35 WBC 6.5 RBC 4.50 Hgb 15.3 Hct 44.3 MCV 98.4 MCH 34.1 H MCHC 34.6 RDW 13.4 Plt Count 147 L Neut % (Auto) 74.9 Lymph % (Auto) 11.5 L [place] % (Auto) 12.4 Eos % (Auto) 0.1 L Baso % (Auto) 1.1 Neut # (Auto) 4800 Lymph # (Auto) 700 L [place] # (Auto) 800 Eos # (Auto) 0 Baso # (Auto) 100 Sodium 134 L Potassium 3.8 Chloride 96 L Carbon Dioxide 23 BUN 8 L Creatinine 0.70 Estimated GFR > 60.0 BUN/Creatinine Ratio 11.4 Glucose 182 H D Calcium 8.8 Total Bilirubin 2.5 H AST 421 H ALT 152 H Alkaline Phosphatase 173 H Total Protein 8.0 Albumin 4.5 Globulin 3.5 Albumin/Globulin Ratio 1.3 Lipase 92 Ethyl Alcohol < 10 Assessment & Plan Assessment & Plan narrative: 1 - Alcohol Withdrawal - continue CIWA protocol using thiamine, multivitamin supplementation and checking magnesium. He will be on routine lorazepam p.o. along with IV as needed lorazepam and haloperidol. - his alcohol level was 360 last night and is now less than 10. The urine drug screen was negative. 2 - Diabetes Mellitus 2 - checking A1c and treating with Aspart medium dose correctional scale, to be adjusted as indicated by blood sugars checked. 3 - Diabetic Peripheral Neuropathy - this is apparently a dense sensation loss and not a pins and needles discomfort at this point. - he has already had to have 2 toes amputated on the left foot due to ulcerating infections. 4 - Hypertension - resume carvedilol and losartan as indicated. 5 - Alcoholic Hepatitis - his exam hints at possible mild ascites. Consider imaging. The liver enzymes are quite elevated and will be followed again in the morning.
--- NOTE | 2018-08-03 16:42 | P.HP_ITS ---
History of Present Illness Date Patient Seen: 08/03/18 Time Patient Seen: 16:40 Chief complaint: rehab is sending him back for treatment, ETOH Narrative: This is a 63-year-old male with an apparent long history of alcoholism who is in acute alcohol withdrawal and was unable to be treated at the detox unit because of his physical symptoms. He was in the emergency department last night and then was placed at the alcohol withdrawal treatment unit this morning and was then sent back to the emergency department because of his symptoms. He has been sweaty and shaking with a CIWA score of 15. He tells me that he lives in [place] and that his primary care physician is at the [facility], but he recently moved here to live on a sailboat, although he is still living in a motel room at this time. 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 He drinks 3 quarts a day of Coors beer or essentially he says ?24 pack a day?. He also has diabetes with significant neuropathy and previous infections in his feet that led to amputation of several toes. He used to take metformin but stopped about 6 months ago because of diarrhea and has not resumed. He does not know what his A1c or his sugars have been. Patient History Medical History Amputated great toe of left foot (Acute) Diabetic neuropathy (Acute) Alcoholism /alcohol abuse (Acute) Hypertension (Acute) Diabetes (Acute) History of amputation of toe (Acute) Surgical History History of appendectomy (Acute) History of tonsillectomy (Acute) No history of previous surgery (Acute) Social History Smoking Status: Never smoker alcohol intake: current Family & Social History Family history unavailable: Yes Social History: He is adopted so does not know any family history. He has 3 adult children all living in [place], 1 of them in care home. He is homeless, currently living in a motel room, with plans to move into a sailboat. 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 He drinks 24 Coors beers a day and occasional marijuana. He denies smoking Tobacco & Substance use: Smoking Status Never smoker alcohol intake current alcohol intake frequency 3 or more drinks per day Substance Use Type does not use Meds Home Medications Medication Instructions Recorded Confirmed Type carvedilol 12.5 mg PO BID 08/03/18 08/03/18 History lorazepam [Ativan] 1 mg PO QD-BID PRN #35 tab 08/03/18 08/03/18 Rx losartan 50 mg PO DAILY 08/03/18 08/03/18 History Allergies Allergy/AdvReac Type Severity Reaction Status Date / Time No Known Drug Allergies Allergy Verified 08/03/18 15:41 Review of Systems Review of Systems Positive for tremor, sweating, agitation. Negative for fevers, chills, coughing, chest pain, abdominal pain, nausea, vomiting, diarrhea, bleeding, dysuria, rashes, joint pain, seizures, headaches, trouble talking, new allergies. All systems reviewed & are unremarkable except as noted in HPI and below Exam Vital Signs (past 8 hours): - 08/03/18 15:41 Temperature 98.5 F Pulse Rate 120 H Respiratory Rate 20 Blood Pressure 204/115 H Pulse Oximetry 97 Oxygen Delivery Method Room Air Narrative Exam Narrative: He is alert, oriented x3, and in moderate distress from alcohol withdrawal. His tremor is only slight. His asterixis is just barely there. Pupils are equally round and reactive to light and accommodation. Sclerae are pink and nonicteric. Extraocular muscles are intact. His eyes make a Saccade movement both up and down and side to side. No lymph nodes are felt head, neck, supraclavicular area. There is no thyromegaly. JVD is less than 6 cm and no carotid bruits are heard. Heart is regular rate and rhythm without murmur. Lungs are clear to auscultation bilaterally Abdomen is soft, nontender, no organomegaly, bowel sounds active. Extremities have no ankle edema. The left large toe and 2nd toe are amputated without residual ulcerations noted on either foot. Skin no rashes or jaundice. Noting the amputations on the left foot. No angiomata seen. Cranial nerves 2-12 tested intact. Motor function is 5/5 throughout. Deep tendon reflexes are symmetric and normal. There is a fine tremor of the outstretched arms. His voice is also tremulous and low volume. Sensation is grossly intact in his feet except for very fine sensation. Objective Labs Result Diagrams: 08/03/18 15:35 08/03/18 15:35 Labs: Laboratory Results - last 24 hr 08/03/18 08/03/18 15:35 15:35 WBC 6.5 RBC 4.50 Hgb 15.3 Hct 44.3 MCV 98.4 MCH 34.1 H MCHC 34.6 RDW 13.4 Plt Count 147 L Neut % (Auto) 74.9 Lymph % (Auto) 11.5 L [place] % (Auto) 12.4 Eos % (Auto) 0.1 L Baso % (Auto) 1.1 Neut # (Auto) 4800 Lymph # (Auto) 700 L [place] # (Auto) 800 Eos # (Auto) 0 Baso # (Auto) 100 Sodium 134 L Potassium 3.8 Chloride 96 L Carbon Dioxide 23 BUN 8 L Creatinine 0.70 Estimated GFR > 60.0 BUN/Creatinine Ratio 11.4 Glucose 182 H D Calcium 8.8 Total Bilirubin 2.5 H AST 421 H ALT 152 H Alkaline Phosphatase 173 H Total Protein 8.0 Albumin 4.5 Globulin 3.5 Albumin/Globulin Ratio 1.3 Lipase 92 Ethyl Alcohol < 10 Assessment & Plan Assessment & Plan narrative: 1 - Alcohol Withdrawal - continue CIWA protocol using thiamine, multivitamin supplementation and checking magnesium. He will be on routine lorazepam p.o. along with IV as needed lorazepam and haloperidol. - his alcohol level was 360 last night and is now less than 10. The urine drug screen was negative. 2 - Diabetes Mellitus 2 - checking A1c and treating with Aspart medium dose correctional scale, to be adjusted as indicated by blood sugars checked. 3 - Diabetic Peripheral Neuropathy - this is apparently a dense sensation loss and not a pins and needles discomfort at this point. - he has already had to have 2 toes amputated on the left foot due to ulcerating infections. 4 - Hypertension - resume carvedilol and losartan as indicated. 5 - Alcoholic Hepatitis - his exam hints at possible mild ascites. Consider imaging. The liver enzymes are quite elevated and will be followed again in the morning.
[2018-08-03] MEDS: CARVEDILOL 12.5 MG TABLET PO (20:25)
[2018-08-03] MEDS: cloNIDine 0.1 MG TABLET PO (21:26)
[2018-08-03] MEDS: LOSARTAN 50 MG TABLET 100 MG PO (22:14)
[2018-08-04] VITALS (12 sets, daily range): BP systolic 135–196; BP diastolic 76–97; PULSE 64–87; RESP 16–20; TEMP 36.1–36.6; O2SAT 95–99
[2018-08-04] MEDS: SODIUM CHLORIDE 0.9% 1,000 ML 100 ML IV ×2 (00:15→16:16)
[2018-08-04] MEDS: cloNIDine 0.1 MG TABLET PO ×3 (00:17→09:31)
[2018-08-04] MEDS: LORazepam 2 MG/ML SYRINGE IV ×5 (00:18→16:18)
[2018-08-04] MEDS: ACETAMINOPHEN 325 MG TABLET 650 MG PO ×2 (00:22→05:35)
[2018-08-04 04:58] LABS: Add Manual Diff / Slide Review NO; Basophils Absolute Auto 0 /uL (0-100); Eosinophils Absolute Auto 0 /uL (0-450); Eosinophils Percent Auto 0.7 % (2-4); Hematocrit 41.3 % (41-53); Hemoglobin 14.2 g/dL (13.5-17.5); Lymphocytes Absolute Auto 1000 /uL (1100-4500); Lymphocytes Percent Auto 22.6 % (25-40); Mean Corpuscular HGB Conc 34.4 % (30-36); Mean Corpuscular Hemoglobin 33.7 PG (26-34); Mean Corpuscular Volume 98.1 fL (80-100); Monocytes Absolute Auto 600 /uL (0-900); Monocytes Percent Auto 13.6 % (3-14); Neutrophils Absolute Auto 2700 /uL (1500-7000); Neutrophils Percent Auto 62.1 % (50-75); Platelet Count 116 X10^3/uL (150-400); Red Blood Cell Count 4.21 X10^6/uL (4.5-5.9); Red Cell Distribution Width 13.4 % (11.6-14.8); White Blood Cell Count 4.4 X10^3/uL (4.5-11.0)
[2018-08-04 05:03] LABS: Alanine Aminotransferase 123 IU/L (21-72); Albumin 3.5 g/dL (3.5-5.0); Albumin Globulin Ratio 1.2 (1.0-2.8); Alkaline Phosphatase 120 U/L (38-126); Aspartate Aminotransferase 246 IU/L (17-59); BUN Creatinine Ratio 11.7 (6-22); Bilirubin Total 2.8 mg/dL (0.2-1.3); Blood Urea Nitrogen 7 mg/dL (9-20); Calcium 7.9 mg/dL (8.4-10.2); Carbon Dioxide 27 mmol/L (22-32); Chloride 100 mmol/L (98-107); Estimated Glomerular Filt Rate > 60.0 mL/min (>60); Globulin 2.9 g/dL (1.7-4.1); Glucose 207 mg/dL (80-110); HEMOLYSIS 21 (0-50); Magnesium 2.3 mg/dL (1.6-2.3); Potassium 3.3 mmol/L (3.4-5.1); Sodium 136 mmol/L (137-145); Total Protein 6.4 g/dL (6.3-8.2)
[2018-08-04 05:10] LABS: Hemoglobin A1C% w Est Avg Glu 7.5 % (4.0-6.0)
[2018-08-04] MEDS: POTASSIUM CHLORIDE 40 MEQ in SODIUM CHLORIDE 0.9% 500 ML 130 ML IV (06:42)
[2018-08-04] MEDS: INSULIN ASPART 100 UNIT/ML INSULN PEN SUBCUT ×3 (09:30→19:07)
[2018-08-04] MEDS: ENOXAPARIN 40 MG/0.4 ML SYRINGE SUBCUT (09:31)
[2018-08-04] MEDS: CARVEDILOL 12.5 MG TABLET PO ×2 (09:31→22:28)
[2018-08-04] MEDS: THIAMINE 100 MG TABLET PO (09:31)
[2018-08-04] MEDS: MULTIVITAMIN 1 TABLET 1 TAB PO (09:31)
[2018-08-04] MEDS: FOLIC ACID 1 MG TABLET PO (09:31)
[2018-08-04] MEDS: LOSARTAN 50 MG TABLET 100 MG PO (09:32)
--- NOTE | 2018-08-04 10:23 | PC.NURSE ---
PT OBVIOUSLY STRUGGLING WITH ETOH WITHDRAWL SYMPTOMS- HE IS BORDERLINE TACHYCARDIC, SWEATING PROFUSELY, TREMULOUS LIMBS AND SPEECH-HE REPORTS NEVER HAVING WITHDRAWL SX LIKE THIS BEFORE AND IS HOPEFUL FOR HELP - WHETHER THIS BE A CRISIS CENTER, OR OUT PT SETTING, NO NOTED SEIZURE ACTIVITY. DENIES PAIN AND CALCULATED CIWA SCORE 15 - MEDICATED WITH 2MG PO LORAZ AND HIS PRESCRIBED HTN MEDS-
--- NOTE | 2018-08-04 11:24 | CM.DANOTE ---
Patient is a 63 year old male who was admitted on 08/03/18 for ETOH withdrawal. Pt has MCR for insurance and his PCP is not listed. EMR was reviewed. Per MD, pt was discharged from the ER yesterday to [facility] but became tachycardic enroute and was brought back to the ER and admitted for withdrawal management. Per RN, pt currently medicated but alert and oriented and likely not stable for d/c yet today. SW met bedside with pt and explained role and updated white board and pt was A&O x3 and able to participate in goal directed discussion. Hx of Use: Patient states that he has been drinking off and on for a very long time, most of my adult life. Pt denies any current use of other drugs. Hx of Tx: Patient states that he was arrested about 7 years ago and went through deferment program and participated in Intensive Outpt and outpt ETOH treatment for 5 years and maintained sobriety for those 5 years but once treatment ended pt relapsed and has been drinking heavily for the past year and a half around 24 pack of beer a day. Pt denies any current enrollment in CD or supportive services at this time. Hx MH: Pt denies any previous dx of mental health and has not been enrolled in MH counseling although he states that his regular CD counseling previously was helpful. Pt acknowledges that currently he is feeling depressed with his current life stressors but denies any Suicidal ideation. Supports: Patient states that he lived in [place] for many years and worked in [place] until he recently lost his job, in part from his increased drinking, and now moved from his [place] house with a tentative plan of finding a boat to live on in the [facility] for now although most of his belongings were stollen out of his vehicle while he was at [facility] prior to his admit here at [facility]. Patient's friends and supports are mostly in the [place] area and he denies any family or supports here in [facility]. Plan: Patient states that he is very disappointed in himself for his poor decisions and is requesting to go to [facility] for further detox support and help with getting into further treatment but also to be connected with community resources for applying for unemployment, social security, housing options, and other assistance. Pt seems motivated and insightful and agreeable with plan of [facility] but states he does not feel medically stable for d/c yet and still requiring some sedation. SW called [facility] and they confirmed that pt will need to do another phone screen and clinicals to be faxed when stable for d/c. [facility] currently has openings for male detox but SW will need to call again each day to determine if they still have openings. SW updated RN. RAZA Rai Discharge Planning/Care Management CM Discharge Assessment Start: 08/04/18 11:18 Freq: Status: Active Protocol: Document 08/04/18 11:18 BF (Rec: 08/04/18 11:23 BF [id number]) Discharge Planning Assessment Assigned Spark Tester RAZA Lopez DPOA/Assigned Designee Name none Advance Directives? No History Provided By Patient Medical Record Has Patient been admitted in last 30 No days? Prior Living Arrangements Homeless Household Members none Type of transporation used prior to Drives own vehicle admit Comment Patient recently moved from [place] and was staying in a motel room for a few days while planning to look for a boat to live on in [facility]. Has few personal belongings currently, what he has is in his vehicle. Independent with ADL's Yes Is patient alert and oriented? Yes Caregiver for Another No Patient/Family Preference Drug/Alcohol Rehab Comment Pt here for ETOH withdrawal and requesting voluntary ETOH treatment/support. Barriers to Discharge No Discharge Plan Drug Rehabilitation Transportation Arrangement If [facility] , then taxi transport provided . Referrals Initiated Other Additional Comment [facility] will need clinicals and phone screen with pt when he is medically stable. Whiteboard Updated in Patient Room with Yes name and ext. # of Spark Tester Review Status In Process Please Provide Date Initial DC 08/04/18 Assessment Was Performed Next Review Type Continued Stay Review
[2018-08-04] MEDS: LORazepam 1 MG TABLET PO (13:13)
--- NOTE | 2018-08-04 15:04 | PM.PN.1 ---
Subjective Date Patient Seen: 08/04/18 Interval history: Nathan Crow is a 63-year-old male with a past medical history significant for hypertension and alcoholism who was unable to be treated at the detox unit due to hypertension and degree of alcohol withdrawal. The patient is sitting in bed and appears anxious. His last CIWA score was 15. He reports that he ?feels tense inside.? He denies formication. He has intermittent headache, nausea and tremulousness controlled with Ativan. His blood pressure is better controlled today with SBP of 140-150's on his home carvedilol and losartan with clonidine in addition for withdrawal. He current denies chest pain, shortness of breath, abdominal pain, nausea, vomiting, fever, chills, dysuria, diarrhea constipation. He is voiding and eliminating without difficulty. He tolerating a carbohydrate consistent diet. He is ambulating minimally. Exam Vital Signs (past 8 hours): - 08/04/18 07:46 08/04/18 11:00 Temperature 97.0 F L 97.2 F L Pulse Rate 66 64 Respiratory Rate 16 16 Blood Pressure 152/97 H 155/84 H Pulse Oximetry 98 97 Oxygen Delivery Method Room Air Oxygen Flow Rate 0 Narrative Exam Narrative: General: Older gentleman sitting in bed and in no acute distress, appears anxious well-developed, well-nourished, appropriately interactive. HEENT: Normocephalic, atraumatic. External ears without defect. Pupils equal, round, and reactive to light. Anicteric sclerae, moist conjunctivae, and no lid lag. Neck: Supple with full range of motion. No lymphadenopathy or thyromegaly. Cardiovascular: Regular rhythm and rate without murmurs, rubs, or gallops appreciated. Pulmonary: Clear to auscultation bilaterally without crackles, wheezes, or rhonchi. Normal respiratory effort with no use of accessory muscles. Abdomen: Soft, bowel sounds present, nontender, mildly protuberant but does not appear distended. No fluid wave. No hepatosplenomegaly or masses appreciated. Extremities: No clubbing, cyanosis, or edema. Skin: Normal temperature, turgor, and texture; no rash, ulcers, or subcutaneous nodules appreciated. No stigmata of liver disease. Neurological: Cranial nerves grossly intact. Psychiatric: Normal mood and affect. Alert and oriented to person, place, and time. Objective Labs Result Diagrams: 08/04/18 04:37 08/04/18 04:37 Labs: Laboratory Results - last 24 hr 08/03/18 08/03/18 08/03/18 15:35 15:35 18:15 WBC 6.5 RBC 4.50 Hgb 15.3 Hct 44.3 MCV 98.4 MCH 34.1 H MCHC 34.6 RDW 13.4 Plt Count 147 L Neut % (Auto) 74.9 Lymph % (Auto) 11.5 L [place] % (Auto) 12.4 Eos % (Auto) 0.1 L Baso % (Auto) 1.1 Neut # (Auto) 4800 Lymph # (Auto) 700 L [place] # (Auto) 800 Eos # (Auto) 0 Baso # (Auto) 100 Sodium 134 L Potassium 3.8 Chloride 96 L Carbon Dioxide 23 BUN 8 L Creatinine 0.70 Estimated GFR > 60.0 BUN/Creatinine Ratio 11.4 Glucose 182 H D Hemoglobin A1c Calcium 8.8 Magnesium Total Bilirubin 2.5 H AST 421 H ALT 152 H Alkaline Phosphatase 173 H Total Protein 8.0 Albumin 4.5 Globulin 3.5 Albumin/Globulin Ratio 1.3 Lipase 92 Nasal Screen MRSA (PCR) Negative for mrsa Ethyl Alcohol < 10 08/04/18 08/04/18 08/04/18 04:37 04:37 04:37 WBC 4.4 L RBC 4.21 L Hgb 14.2 Hct 41.3 MCV 98.1 MCH 33.7 MCHC 34.4 RDW 13.4 Plt Count 116 L Neut % (Auto) 62.1 Lymph % (Auto) 22.6 L [place] % (Auto) 13.6 Eos % (Auto) 0.7 L Baso % (Auto) 1.0 Neut # (Auto) 2700 Lymph # (Auto) 1000 L [place] # (Auto) 600 Eos # (Auto) 0 Baso # (Auto) 0 Sodium 136 L Potassium 3.3 L Chloride 100 Carbon Dioxide 27 BUN 7 L Creatinine 0.60 L Estimated GFR > 60.0 BUN/Creatinine Ratio 11.7 Glucose 207 H Hemoglobin A1c 7.5 H Calcium 7.9 L Magnesium 2.3 Total Bilirubin 2.8 H AST 246 H ALT 123 H Alkaline Phosphatase 120 D Total Protein 6.4 Albumin 3.5 Globulin 2.9 Albumin/Globulin Ratio 1.2 Lipase Nasal Screen MRSA (PCR) Ethyl Alcohol Assessment & Plan Assessment & Plan narrative: Nathan Crow is a 63-year-old male with a past medical history significant for hypertension and alcoholism who was unable to be treated at the detox unit due to hypertension and degree of alcohol withdrawal. 1. Acute alcohol withdrawal, present on admission. Active. -Continue CIWA protocol using thiamine, multivitamin supplementation and checking and repleting electrolytes. He will be on routine lorazepam p.o. along with IV as needed lorazepam and haloperidol. -His alcohol level was 360 night prior to admission and is now less than 10. The urine drug screen was negative. 2. Diabetes mellitus type 2, non-insulin using, chronic, present on admission. Stable. -Hemoglobin A1c 7.5% 07/2018. -Continue medium dose correction scale insulin. -Will consider starting metformin prior to discharge. Will need to be treated and followed outpatient. -Continue carbohydrate consistent diet. 3. 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 Stable. -This is apparently a dense sensation loss and not a pins and needles discomfort at this point. -He has already had to have 2 toes amputated on the left foot due to ulcerating infections. 4. Hypertension, chronic, present on admission. Active. -Resume carvedilol 12.5 mg twice daily and losartan 50 mg daily. Continue clonidine as indicated to treat alcohol withdrawal. 5. Alcoholic hepatitis, likely chronic, present on admission. Active. -The liver enzymes elevated in the 2:1 ratio indicative of alcohol-induced injury. Trending down. Continue to monitor LFTs daily and will consider abdominal imaging if LFTs acutely worsen. -Discussed alcohol cessation and encouraged him to abstain indefinitely. Disposition: Patient likely to discharge to treatment center in 1-2 days depending upon improvement in alcohol withdrawal symptoms and control of blood pressure.
--- NOTE | 2018-08-04 22:47 | PC.NURSE ---
timmy daniels pt reports feeling tense inside, asking for something to help him sleep. Called [facility] to discuss low CIWA scores and request for sleep med. New order received.
[2018-08-04] MEDS: TRAZODONE 50 MG TABLET 25 MG PO (23:26)
[2018-08-05] VITALS (11 sets, daily range): BP systolic 142–201; BP diastolic 67–108; PULSE 66–96; RESP 15–20; TEMP 36.2–37.1; O2SAT 92–97
[2018-08-05] MEDS: SODIUM CHLORIDE 0.9% 1,000 ML 1000 ML IV (02:23)
[2018-08-05] MEDS: ACETAMINOPHEN 325 MG TABLET 650 MG PO ×3 (02:25→20:45)
[2018-08-05] MEDS: LORazepam 2 MG/ML SYRINGE IV (04:39)
[2018-08-05 04:59] LABS: Add Manual Diff / Slide Review NO; Basophils Absolute Auto 100 /uL (0-100); Basophils Percent Auto 1.6 % (0-2); Eosinophils Absolute Auto 0 /uL (0-450); Eosinophils Percent Auto 1.1 % (2-4); Hematocrit 38.8 % (41-53); Hemoglobin 13.2 g/dL (13.5-17.5); Lymphocytes Absolute Auto 1000 /uL (1100-4500); Mean Corpuscular Hemoglobin 33.9 PG (26-34); Mean Corpuscular Volume 99.8 fL (80-100); Monocytes Absolute Auto 600 /uL (0-900); Monocytes Percent Auto 12.6 % (3-14); Neutrophils Absolute Auto 2700 /uL (1500-7000); Neutrophils Percent Auto 61.7 % (50-75); Platelet Count 108 X10^3/uL (150-400); Red Blood Cell Count 3.89 X10^6/uL (4.5-5.9); Red Cell Distribution Width 13.5 % (11.6-14.8); White Blood Cell Count 4.4 X10^3/uL (4.5-11.0)
[2018-08-05 05:08] LABS: Alanine Aminotransferase 98 IU/L (21-72); Albumin 3.2 g/dL (3.5-5.0); Albumin Globulin Ratio 1.1 (1.0-2.8); Alkaline Phosphatase 128 U/L (38-126); Aspartate Aminotransferase 151 IU/L (17-59); BUN Creatinine Ratio 11.7 (6-22); Bilirubin Total 1.7 mg/dL (0.2-1.3); Blood Urea Nitrogen 7 mg/dL (9-20); Calcium 8.2 mg/dL (8.4-10.2); Carbon Dioxide 24 mmol/L (22-32); Chloride 103 mmol/L (98-107); Estimated Glomerular Filt Rate > 60.0 mL/min (>60); Globulin 2.8 g/dL (1.7-4.1); Glucose 239 mg/dL (80-110); HEMOLYSIS < 15 (0-50); Potassium 3.6 mmol/L (3.4-5.1); Sodium 135 mmol/L (137-145)
--- NOTE | 2018-08-05 06:38 | PM.PN.1 ---
Subjective Date Patient Seen: 08/05/18 Interval history: Nathan Crow is a 63-year-old male with a past medical history significant for hypertension and alcoholism who was unable to be treated at the detox unit due to hypertension and degree of alcohol withdrawal. The patient is sitting in bed comfortably. His last CIWA score was 9. He reports that this morning he had a huge headache and felt tense which was relieved with Ativan. He reports that he slept well after Ativan was administered. He denies formication. He has intermittent headache, nausea and tremulousness controlled with Ativan. His blood pressure continues to be elevated with SBP of 170's on his home carvedilol and losartan and will adjust these medications today. He currently denies headache, tremulousness, lightheadedness or dizziness, chest pain, shortness of breath, abdominal pain, nausea, vomiting, fever, chills, dysuria, diarrhea constipation. He is voiding and eliminating without difficulty. He is tolerating a carbohydrate consistent diet. He is ambulating minimally and encouraged him to get up and ambulate in halls today. Exam Vital Signs (past 8 hours): - 08/04/18 23:57 08/05/18 04:35 Temperature 97.9 F 97.9 F Pulse Rate 72 72 Respiratory Rate 18 18 Blood Pressure 181/88 H 174/78 H Pulse Oximetry 98 97 Oxygen Delivery Method Room Air Oxygen Flow Rate 0 Narrative Exam Narrative: General: Older gentleman sitting in bed and in no acute distress, appears anxious well-developed, well-nourished, appropriately interactive. HEENT: Normocephalic, atraumatic. External ears without defect. Pupils equal, round, and reactive to light. Anicteric sclerae, moist conjunctivae, and no lid lag. Neck: Supple with full range of motion. No lymphadenopathy or thyromegaly. Cardiovascular: Regular rhythm and rate without murmurs, rubs, or gallops appreciated. Pulmonary: Clear to auscultation bilaterally without crackles, wheezes, or rhonchi. Normal respiratory effort with no use of accessory muscles. Abdomen: Soft, bowel sounds present, nontender, mildly protuberant but does not appear distended. No significant fluid wave. No hepatosplenomegaly or masses appreciated. Extremities: No clubbing, cyanosis, or edema. Skin: Normal temperature, turgor, and texture; no rash, ulcers, or subcutaneous nodules appreciated. No stigmata of liver disease. Neurological: Cranial nerves grossly intact. Psychiatric: Depressed mood and affect. Anxious. Alert and oriented to person, place, and time. Objective Labs Result Diagrams: 08/05/18 04:45 08/05/18 04:45 Labs: Laboratory Results - last 24 hr 08/05/18 08/05/18 04:45 04:45 WBC 4.4 L RBC 3.89 L Hgb 13.2 L Hct 38.8 L MCV 99.8 MCH 33.9 MCHC 34.0 RDW 13.5 Plt Count 108 L Neut % (Auto) 61.7 Lymph % (Auto) 23.0 L [place] % (Auto) 12.6 Eos % (Auto) 1.1 L Baso % (Auto) 1.6 Neut # (Auto) 2700 Lymph # (Auto) 1000 L [place] # (Auto) 600 Eos # (Auto) 0 Baso # (Auto) 100 Sodium 135 L Potassium 3.6 Chloride 103 Carbon Dioxide 24 BUN 7 L Creatinine 0.60 L Estimated GFR > 60.0 BUN/Creatinine Ratio 11.7 Glucose 239 H Calcium 8.2 L Magnesium 2.0 Total Bilirubin 1.7 H AST 151 H ALT 98 H Alkaline Phosphatase 128 H Total Protein 6.0 L Albumin 3.2 L Globulin 2.8 Albumin/Globulin Ratio 1.1 Assessment & Plan Assessment & Plan narrative: Nathan Crow is a 63-year-old male with a past medical history significant for hypertension and alcoholism who was unable to be treated at the detox unit due to hypertension and degree of alcohol withdrawal. 1. Acute alcohol withdrawal, present on admission. Active. -Continue CIWA protocol using thiamine and multivitamin supplementation and checking and repleting electrolytes. Placed patient on a short librium taper starting with 50 mg twice daily and haloperidol as needed. Stopped clonidine. -His alcohol level was 360 night prior to admission and on admission less than 10. The urine drug screen was negative. -Stopped IVF and will encourage PO intake. 2. Diabetes mellitus type 2, non-insulin using, chronic, present on admission. Stable. -Hemoglobin A1c 7.5% 07/2018. -Continue medium dose correction scale insulin. -Starting metformin 500 mg twice daily with food at lower dose due to intolerance in the past with higher doses. Will need to be treated and followed outpatient. -Continue carbohydrate consistent diet. 3. 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 Stable. -This is apparently a dense sensation loss and not a pins and needles discomfort at this point. -He has already had to have 2 toes amputated on the left foot due to ulcerating infections. 4. Hypertension, chronic, present on admission. Active. -Continue carvedilol but increased from 12.5 mg to 25 mg twice daily and switched losartan from 100 mg daily to 50 mg twice daily for better coverage. In addition added HCTZ 25 mg daily. Discontinued clonidine. 5. Alcoholic hepatitis, likely chronic, present on admission. Active. -The liver enzymes elevated in the 2:1 ratio indicative of alcohol-induced injury. Trending down. Continue to monitor LFTs daily and will consider abdominal imaging if LFTs acutely worsen. -Discussed alcohol cessation and encouraged him to abstain indefinitely. Disposition: Patient likely to discharge to treatment center in 1-2 days depending upon improvement in alcohol withdrawal symptoms and control of blood pressure.
[2018-08-05] MEDS: INSULIN ASPART 100 UNIT/ML INSULN PEN SUBCUT ×3 (08:37→17:17)
[2018-08-05] MEDS: ENOXAPARIN 40 MG/0.4 ML SYRINGE SUBCUT (08:38)
[2018-08-05] MEDS: THIAMINE 100 MG TABLET PO (08:39)
[2018-08-05] MEDS: LOSARTAN 50 MG TABLET PO ×2 (08:40→20:40)
[2018-08-05] MEDS: hydroCHLOROthiazide 25 MG TABLET PO (08:40)
[2018-08-05] MEDS: FOLIC ACID 1 MG TABLET PO (08:40)
[2018-08-05] MEDS: MULTIVITAMIN 1 TABLET 1 TAB PO (08:40)
[2018-08-05] MEDS: METFORMIN HCL 500 MG TABLET PO ×2 (08:42→17:18)
[2018-08-05] MEDS: chlordiazePOXIDE 25 MG CAPSULE 50 MG PO ×2 (08:42→20:44)
[2018-08-05] MEDS: CARVEDILOL 25 MG TABLET PO ×2 (08:47→20:40)
[2018-08-05] MEDS: HALOPERIDOL 5 MG/ML VIAL IV (13:19)
--- NOTE | 2018-08-05 17:08 | CM.DPC ---
DCP/continued: Reviewed chart. Per MD in AM rounds patient is not medically stable for discharge today. However, most likely will be ready in the next 24-48hrs. Met with patient explained role. Patient confirms that he would like to go to [facility] when medically stable. Patient provided with [facility] brochure and encouraged to call to do intake over the telephone. Patient agreeable. P: Anticipate [facility] if bed available and patient accepted at time of discharge. RN updated. RAZA Aldana
--- NOTE | 2018-08-05 18:04 | PC.NURSE ---
Addendum entered by Nohelia Jacques R.N. 08/05/18 20:51: 2145 - Pt reports increased anxiety. I am nervous about tomorrow. Reassurance provided. Explained care management roll in D/c planning. HS rx given as ordered. 1810 - Encouraged pt to ambulate in the fox following use of bathroom. Pt declined. Pt did place call to [facility]. Reported no beds available at this time. Pt to call back between 9 and 11 a.m. tomorrow. Original Note: 1620 - Pt reports feeling drowsy. SBA to void per urinal. Discussed treatment plan for the evening. Encouraged pt to call [facility]. Pt states, I just need a nap first. Discussed meal time and encouraged pt to call following dinner. Impulsive movements. Reinforced safety and call light use. Bed alarm on.
[2018-08-05] MEDS: TRAZODONE 50 MG TABLET 25 MG PO (23:47)
[2018-08-06] VITALS (10 sets, daily range): BP systolic 148–171; BP diastolic 72–92; PULSE 63–70; RESP 15–20; TEMP 36.1–36.8; O2SAT 94–97
[2018-08-06] MEDS: ACETAMINOPHEN 325 MG TABLET 650 MG PO (03:51)
[2018-08-06 05:08] LABS: Add Manual Diff / Slide Review NO; Basophils Absolute Auto 100 /uL (0-100); Eosinophils Absolute Auto 100 /uL (0-450); Eosinophils Percent Auto 1.3 % (2-4); Hematocrit 40.2 % (41-53); Hemoglobin 13.6 g/dL (13.5-17.5); Lymphocytes Absolute Auto 1500 /uL (1100-4500); Lymphocytes Percent Auto 26.5 % (25-40); Mean Corpuscular HGB Conc 33.9 % (30-36); Mean Corpuscular Hemoglobin 33.6 PG (26-34); Monocytes Absolute Auto 700 /uL (0-900); Monocytes Percent Auto 12.4 % (3-14); Neutrophils Absolute Auto 3300 /uL (1500-7000); Neutrophils Percent Auto 58.8 % (50-75); Platelet Count 126 X10^3/uL (150-400); Red Blood Cell Count 4.06 X10^6/uL (4.5-5.9); Red Cell Distribution Width 13.4 % (11.6-14.8); White Blood Cell Count 5.6 X10^3/uL (4.5-11.0)
[2018-08-06 05:19] LABS: Alanine Aminotransferase 94 IU/L (21-72); Albumin 3.3 g/dL (3.5-5.0); Albumin Globulin Ratio 1.1 (1.0-2.8); Alkaline Phosphatase 146 U/L (38-126); Aspartate Aminotransferase 111 IU/L (17-59); BUN Creatinine Ratio 17.1 (6-22); Bilirubin Total 1.2 mg/dL (0.2-1.3); Blood Urea Nitrogen 12 mg/dL (9-20); Calcium 9.6 mg/dL (8.4-10.2); Carbon Dioxide 27 mmol/L (22-32); Chloride 100 mmol/L (98-107); Estimated Glomerular Filt Rate > 60.0 mL/min (>60); Globulin 2.9 g/dL (1.7-4.1); Glucose 163 mg/dL (80-110); HEMOLYSIS < 15 (0-50); Magnesium 1.8 mg/dL (1.6-2.3); Potassium 3.4 mmol/L (3.4-5.1); Sodium 134 mmol/L (137-145); Total Protein 6.2 g/dL (6.3-8.2)
--- NOTE | 2018-08-06 05:22 | PC.NURSE ---
Patient has been awake and restless most of the night, appears drowsy with slow speech and movements. Bed alarm on, stands at side of bed to void. Trazadone 25mg PO was given at midnight, PO Tylenol given at 0400 for general aches. BP 140s-150s/70s, afebrile.
[2018-08-06] MEDS: MULTIVITAMIN 1 TABLET 1 TAB PO (09:18)
[2018-08-06] MEDS: hydroCHLOROthiazide 25 MG TABLET PO ×2 (09:18→12:13)
[2018-08-06] MEDS: LOSARTAN 50 MG TABLET PO ×2 (09:18→20:27)
[2018-08-06] MEDS: THIAMINE 100 MG TABLET PO (09:19)
[2018-08-06] MEDS: CARVEDILOL 25 MG TABLET PO ×2 (09:19→20:28)
[2018-08-06] MEDS: FOLIC ACID 1 MG TABLET PO (09:19)
[2018-08-06] MEDS: ENOXAPARIN 40 MG/0.4 ML SYRINGE SUBCUT (09:20)
[2018-08-06] MEDS: METFORMIN HCL 500 MG TABLET PO ×2 (09:27→17:41)
[2018-08-06] MEDS: chlordiazePOXIDE 25 MG CAPSULE 50 MG PO ×2 (09:28→21:17)
[2018-08-06] MEDS: INSULIN ASPART 100 UNIT/ML INSULN PEN SUBCUT ×3 (09:29→17:42)
[2018-08-06] MEDS: POTASSIUM CHLORIDE 40 MEQ in SODIUM CHLORIDE 0.9% 500 ML 130 ML IV (09:38)
[2018-08-06] MEDS: SODIUM CHLORIDE 0.9% FLUSH 10 ML IV (09:38)
[2018-08-06] MEDS: POTASSIUM CHLORIDE 20 MEQ TAB 40 MEQ PO (11:33)
[2018-08-06] MEDS: NYSTATIN CREAM 30 GM 1 APPLIC TOP (11:33)
--- NOTE | 2018-08-06 11:59 | PM.DS.1 ---
History of Present Illness Date Patient Seen: 08/06/18 Chief complaint: rehab is sending him back for treatment, ETOH Narrative: Written by Dr. Laurent: This is a 63-year-old male with an apparent long history of alcoholism who is in acute alcohol withdrawal and was unable to be treated at the detox unit because of his physical symptoms. He was in the emergency department last night and then was placed at the alcohol withdrawal treatment unit this morning and was then sent back to the emergency department because of his symptoms. He has been sweaty and shaking with a CIWA score of 15. He tells me that he lives in [place] and that his primary care physician is at the [facility], but he recently moved here to live on a sailboat, although he is still living in a motel room at this time. 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 He drinks 3 quarts a day of Coors beer or essentially he says ?24 pack a day?. He also has diabetes with significant neuropathy and previous infections in his feet that led to amputation of several toes. He used to take metformin but stopped about 6 months ago because of diarrhea and has not resumed. He does not know what his A1c or his sugars have been. Discharge Providers Date of admission: 08/03/18 16:04 Consults: 08/03/18 16:30 Consult to Dietitian, Adult Routine Comment: Reason For Exam: Malnourishment 08/03/18 16:35 Consult to Discharge Planning Routine Comment: Consult to Industrial Maintenance Repairer Helper Routine Comment: 08/03/18 18:54 Consult to Dietitian, Adult Routine Comment: Reason For Exam: assessed at high risk Discharge provider: Aide Askew DO Discharge Date: 08/06/18 Summary Hospital Course: Nathan Crow is a 63-year-old male with a past medical history significant for hypertension and alcoholism who was unable to be treated at the detox unit due to hypertension and degree of alcohol withdrawal. 1. Acute alcohol withdrawal, present on admission. Resolved. -Continued CIWA protocol which was discontinued as his CIWA scores are low and he is likely outside of the withdraw window and on a librium taper 50 twice daily, 25 mg twice daily, 25 mg once daily then stop. Continued thiamine and multivitamin supplementation. Repleted electrolytes as needed. Placed patient on a short librium taper starting with 50 mg twice daily -His alcohol level was 360 night prior to admission and on admission less than 10. The urine drug screen was negative. -Stopped IVF and encouraged PO intake. 2. Diabetes mellitus type 2, non-insulin using, chronic, present on admission. Stable. -Hemoglobin A1c 7.5% 07/2018. -Continued medium dose correction scale insulin. -Started metformin 500 mg twice daily with food at lower dose due to intolerance in the past with higher doses. Will need to be treated and followed outpatient. -Continued carbohydrate consistent diet. 3. 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 Stable. -This is apparently a dense sensation loss and not a pins and needles discomfort at this point. -He has already had to have 2 toes amputated on the left foot due to ulcerating infections. 4. Hypertension, chronic, present on admission. Active. -Continued carvedilol but increased from 12.5 mg to 25 mg twice daily and switched losartan from 100 mg daily to 50 mg twice daily for better coverage. In addition added HCTZ 25 mg daily. Discontinued clonidine. 5. Alcoholic hepatitis, likely chronic, present on admission. Active. -The liver enzymes elevated in the 2:1 ratio indicative of alcohol-induced injury. Trending down. Continued to monitor LFTs daily and will consider abdominal imaging if LFTs acutely worsen. -Discussed alcohol cessation and encouraged him to abstain indefinitely. Status at Discharge Functional status at discharge: independent ambulation Overall status at discharge: patient is back to baseline Exam Vital Signs (past 8 hours): - 08/06/18 04:00 08/06/18 07:40 08/06/18 09:30 Temperature 97.9 F 98.2 F Pulse Rate 65 64 Respiratory Rate 16 20 Blood Pressure 152/79 H 171/87 H Pulse Oximetry 97 97 97 Oxygen Delivery Method Room Air Oxygen Flow Rate 0 Objective Labs Result Diagrams: 08/06/18 04:41 08/06/18 04:41 Labs: Laboratory Results - last 24 hr 08/06/18 08/06/18 04:41 04:41 WBC 5.6 RBC 4.06 L Hgb 13.6 Hct 40.2 L MCV 99.0 MCH 33.6 MCHC 33.9 RDW 13.4 Plt Count 126 L Neut % (Auto) 58.8 Lymph % (Auto) 26.5 [place] % (Auto) 12.4 Eos % (Auto) 1.3 L Baso % (Auto) 1.0 Neut # (Auto) 3300 Lymph # (Auto) 1500 [place] # (Auto) 700 Eos # (Auto) 100 Baso # (Auto) 100 Sodium 134 L Potassium 3.4 Chloride 100 Carbon Dioxide 27 BUN 12 Creatinine 0.70 Estimated GFR > 60.0 BUN/Creatinine Ratio 17.1 Glucose 163 H Calcium 9.6 Magnesium 1.8 Total Bilirubin 1.2 AST 111 H ALT 94 H Alkaline Phosphatase 146 H Total Protein 6.2 L Albumin 3.3 L Globulin 2.9 Albumin/Globulin Ratio 1.1 Discharge Plan Discharge Plan Patient Disposition: Home Discharge comment: You are being discharged home. You are on a Librium taper which will be completed in tomorrow morning. Please abstain from alcohol indefinitely. Please utilize the outpatient resources that were provided to you to help you continue to abstain from alcohol. You need to follow up with, Daysi Zazueta, for hospital follow-up and diabetic management for which an appointment has been made for you. Discharge Med Rec/Prescriptions Prescriptions: New carvedilol [Coreg] 25 mg Tablet 25 mg PO BID Qty: 60 RF: 0 folic acid 1 mg Tablet 1 mg PO DAILY Qty: 30 RF: 0 multivitamin [Tab-A-Andrea] Tablet 1 tab PO DAILY Qty: 30 RF: 0 losartan 50 mg Tablet 50 mg PO BID Qty: 60 RF: 0 metformin [Glucophage] 500 mg Tablet 500 mg PO 0800,1700 Qty: 60 RF: 0 hydrochlorothiazide 50 mg tablet 50 mg PO DAILY Qty: 30 RF: 0 nystatin 100,000 unit/gram Cream 1 applic topical PRN PRN (Reason: Rash) Qty: 1 RF: 0 chlordiazepoxide HCl 25 mg capsule 25 mg PO Q12H Qty: 2 RF: 0 Discontinued losartan 50 mg Tablet 50 mg PO DAILY RF: 0 carvedilol 12.5 mg Tablet 12.5 mg PO BID RF: 0 lorazepam [Ativan] 1 mg tablet 1 mg PO QD-BID PRN (Reason: alcohol withdrawal) Qty: 35 RF: 0 Follow up/Referrals: Daysi Zazueta PA-C [Physician] - 08/13/18 10:15 am (appt:08/13 @ 10:15 with Aga arzate @ [address] please bring you filled out new patient packet to the appointment) Provider Discharge Instructions Diet: Low-fat, Low-sodium and Low-cholesterol Activity: Activity as tolerated. Visit Report/Discharge Packet Instructions: DI for Alcohol Abuse, DI for Drug or Alcohol Withdrawal Discharge Data Attending Provider: Shelby Laurent Admit Date/Time: 08/03/18 16:04
--- NOTE | 2018-08-06 14:40 | PC.NURSE ---
Pt is AAO x3 and makes needs known with clear, logical speech. CIWA scores have remained low this shift mostly r/t anxiety and intermittent reports of headache. Pt has been OOB and ambulating in room independently with a steady gait. He declined a shower but was provided a basin of soapy water and independently washed groin and buttock. He intermittently uses a fww. Dr. Askew rounded and orders received for discharge to home as pt was not accepted to [facility]. Pt states he feels unable to discharge home and care for himself independently. Reports that he needs assistance sleeping and would feel more comfortable staying overnight. Appeal in progress. Care ongoing.
--- NOTE | 2018-08-06 16:20 | CM.SWNOTE ---
According to Dr Askew, pt is medically ready for DC today [facility] and can DC w/ 2 days taper of Librium. Met w/pt and reviewed DCP. He placed call to [facility]; he says he has been declined. This MANAGED CARE ANALYST spent time w/pt reviewing alternative addiction treatment resources and ways to remain sober once DC home today, pt w/somewhat flat affect and apathetic, he admits he will likely drink upon DC. This MANAGED CARE ANALYST placed call to [facility] to understand more; Crisis explained that if pt is on day 3 of his detox he will be declined for services because he has almost completed his detox course; they are a 3-5 day detox program. He also presented himself there on 08.03.18 and could not functionally care for himself, he will need to be completely indp in ADLs to be considered. Reviewed this w/ pt and Dr Askew. Pt states over and over that if he could sleep he could accomplish much more and he would like to remain in the hospital tonight to sleep and get medication assist. HIEN Frias aware of pt's resistance towards DC and suggests Dr Askew prescribe something to assist pt in sleeping once home to his boat? Pt admits his boat does have a heater and he can sleep there although Pt adamant about remaining in the hospital to feel safe and secure, he states I don't feel like I am medically ready. At this point in time, this MANAGED CARE ANALYST reviewed the IMM that pt had signed upon admission and pt proceeded w/the DC appeal process through [facility]/ Medicare. Dr Askew aware. Following. No word from [facility] today for request of clinical or supportive documentation re: pt's DC appeal (?) RAZA Fan
--- NOTE | 2018-08-06 17:52 | PC.NURSE ---
Addendum entered by Nohelia Jacques R.N. 08/06/18 19:33: 1845 - Reviewed pt concerns with MD. Orders obtained. Educated pt to medication side effects, treatment plan, and follow up plan of care as out patient. Pt reports [facility] as primary pharmacy. Answered questions r/t discharge information. Discussed medication does times. Pt verbalized understanding. Call light in reach. Original Note: 1630 - Pt expressing concerns r/t discharge. Ability for self care, lack of sufficient sleep, and medication. Following up with MD with pt questions r/t medications. Metformin resulting in diarrhea, pt requesting alternative and RX for sleep.
[2018-08-06] MEDS: TRAZODONE 50 MG TABLET PO (20:27)
--- NOTE | 2018-08-06 21:59 | PC.NURSE ---
Pt arrived at 2009. A&Ox3. denied pain, or n/v. 97%RA. Physical assessment reviewed. oriented pt to the room. call light in reach.
[2018-08-07] VITALS (8 sets, daily range): BP systolic 117–167; BP diastolic 65–92; PULSE 62–75; RESP 17–18; TEMP 36.2–36.4; O2SAT 96–99
[2018-08-07] MEDS: ACETAMINOPHEN 325 MG TABLET 650 MG PO ×2 (01:30→17:34)
--- NOTE | 2018-08-07 05:36 | PC.NURSE ---
Patient had very sleepless night until around 0430. He was up in recliner, watching TV, having snack. C/O slight headache, but declined offer of medication. Pleasant,alert and oriented this shift. In bed asleep now. Appears comfortable.
[2018-08-07] MEDS: INSULIN ASPART 100 UNIT/ML INSULN PEN SUBCUT ×4 (07:59→21:31)
[2018-08-07] MEDS: ENOXAPARIN 40 MG/0.4 ML SYRINGE SUBCUT (08:01)
[2018-08-07] MEDS: CARVEDILOL 25 MG TABLET PO ×2 (08:02→21:38)
[2018-08-07] MEDS: METFORMIN HCL 500 MG TABLET PO ×2 (08:02→17:31)
[2018-08-07] MEDS: FOLIC ACID 1 MG TABLET PO (08:02)
[2018-08-07] MEDS: hydroCHLOROthiazide 25 MG TABLET PO (08:02)
[2018-08-07] MEDS: LOSARTAN 50 MG TABLET PO ×2 (08:02→21:38)
[2018-08-07] MEDS: MULTIVITAMIN 1 TABLET 1 TAB PO (08:02)
--- NOTE | 2018-08-07 08:45 | PC.NURSE ---
0700- Safe handoff from NOC RN. Pt up in room ambulating independently. Denies any pain or discomfort at this time. VSS. 0800- BG 184; 1 unit of insulin administered. Pt educated on purpose of PO meds; swallowed w/o difficulty. Will contact care management about status of discharge for today. 1000- Care Management working with this pt regarding D/C orders and Medicare coverage.
[2018-08-07] MEDS: chlordiazePOXIDE 25 MG CAPSULE 50 MG PO (09:07)
--- NOTE | 2018-08-07 12:30 | CM.DPNOTE ---
DCP/continued: Reviewed chart. Per RN and staff patient discharged from acute care setting on 08-06-18. Patient did not agree with discharge and made appeal through [facility]. TANK TRUCK MECHANIC checked with medical records to see if medical records had been requested from [facility]. No records have been requested. TANK TRUCK MECHANIC met with patient and discussed above discharge and appeal process. Patient reports that he called and started the appeal process on 08-06-18. TANK TRUCK MECHANIC and patient called [employer] in room. They report that they have not received appeal request. Provided [facility] with date/time when message was left (patient has on cell phone). [facility] reports that they are backed up and have not checked all incoming messages. [facility] faxed request to department for clinical to be faxed to control ID# [id number]. All requested information faxed. In addition, spoke with patient about his discharge plans. Patient reports that his car is in the [facility] parking lot and he will go home/back to his boat once he gets answer on his appeal. Patient believes that medically he is still detoxing and unstable on his feet to return to previous independence. Provided patient with community resources for Senior services, [facility] and [facility]. Patient appreciative. No additional needs identified. P: Anticipate that patient will discharge once appeal decision has been made. RN and CM team updated. Should have decision either later today or in AM on 08-08-18. RAZA Aldana
--- NOTE | 2018-08-07 12:51 | PC.NURSE ---
patient reports he has voided approx 12 times this shift. states small amts but not particularly difficult. randomly bladder scanned. 265 cc's present. no discomfort.
[2018-08-07] MEDS: chlordiazePOXIDE 25 MG CAPSULE PO (21:38)
[2018-08-08] VITALS: BP 169/88; PULSE 69; RESP 18; TEMP 36.2; O2SAT 98
[2018-08-08 00:32] VITALS: O2SAT 99
[2018-08-08] MEDS: ACETAMINOPHEN 325 MG TABLET 650 MG PO ×2 (00:34→08:13)
--- NOTE | 2018-08-08 01:15 | PC.NURSE ---
0043 Patient is alert and oriented but restless. Noted to have slight tremor in left hand. Breath sounds CTA with RA sat of 99%. HRR but has elevated BP at 169/88; has been trending higher. Denies nausea. BT present and abdomen is soft. States he has intermittent burning with urination and voiding in small amounts with dark delicia urine reported; requested he use urinal during night so can better evaluate frequency and amounts (SAP MOBILITY ARCHITECT later reported patient voided 250cc clear delicia urine. Slight redness noted on posterior upper thighs/perineum but denies pain/itching. Is up independent in room but ambulated in fox with SBA. SHELL stockings put on during bedside shift report. Patient reports chronic neuropathy in bilateral LE unchanged from admit. Does state he feels like bugs are biting but reports he has had same sensation intermittently over past year. Complains of 6/10 lower back pain so was medicated with Tylenol. Fall risk score is moderate.
[2018-08-08 04:00] VITALS: BP 118/61; PULSE 58; RESP 18; TEMP 36.7; O2SAT 96
[2018-08-08 08:00] VITALS: BP 134/75; PULSE 62; RESP 18; TEMP 36.4; O2SAT 98
[2018-08-08] MEDS: CARVEDILOL 25 MG TABLET PO (08:12)
[2018-08-08] MEDS: MULTIVITAMIN 1 TABLET 1 TAB PO (08:12)
[2018-08-08] MEDS: hydroCHLOROthiazide 25 MG TABLET PO (08:12)
[2018-08-08] MEDS: ENOXAPARIN 40 MG/0.4 ML SYRINGE SUBCUT (08:12)
[2018-08-08] MEDS: FOLIC ACID 1 MG TABLET PO (08:12)
[2018-08-08] MEDS: LOSARTAN 50 MG TABLET PO (08:12)
[2018-08-08] MEDS: METFORMIN HCL 500 MG TABLET PO (08:12)
[2018-08-08] MEDS: INSULIN ASPART 100 UNIT/ML INSULN PEN SUBCUT (08:13)
[2018-08-08] MEDS: chlordiazePOXIDE 25 MG CAPSULE PO (08:31)
[2018-08-08 08:34] VITALS: O2SAT 98
--- NOTE | 2018-08-08 09:15 | CM.DPNOTE ---
Addendum entered by Lakeshia Mendez, COSMETIC COUNSELOR 08/08/18 15:11: Met w/pt, provided his updated Medicare number: [id number]. Discussed that Tk making determination today; pt aware and thinks he can leave soon. Pt asked about how to get DC instructions and how to physically leave the hospital (?) Repeated this process multiple times for pt. Pt has his car here. Pt has outpt and inpt resources for alcohol treatment. Per HIEN George, pt leaving after DC instructions, Dr Askew made aware and med list adjusted, no need for librium. JW Original Note: TC placed to Tk P#[phone], spoke to a clinician who said the call out for determination is scheduled for today. Pt will get a call first then [facility] will be notified of determination. Following closely. LUIS
--- NOTE | 2018-08-08 12:06 | PC.NURSE ---
this ghost writer was notified that patient was ready to discharge. this ghost writer was busy with a different patient, and the coordinator discussed discharge order with care management. scripts, packet for new patient paperwork and scripts provided to patient. md aware patient discharged at 1040, she states patient left w/ appropriate scripts. his car is in parking lot, he plans to drive self home. escorted by maturity checker to vehicle
== END 2018-08-08 10:40 | disposition home or self-care (01) | DRG 897 ==
LOC: ED 15:55 → AC 16:05 → ICU 17:34 → AC 08-06 20:23
PROVIDERS: Internal Medicine; Admitting Provider Family Medicine; Emergency Provider Emergency Medicine; Visit Provider Family Medicine
DX: F10.230 Alcohol dependence with withdrawal, uncomplicated (principal); E11.40 Type 2 diabetes mellitus with diabetic neuropathy, unspecified; T38.3X6A Underdosing of insulin and oral hypoglycemic [antidiabetic] drugs, initial encounter; Z91.128 Patient's intentional underdosing of medication regimen for other reason; K70.11 Alcoholic hepatitis with ascites; G62.1 Alcoholic polyneuropathy; I10 Essential (primary) hypertension; Z59.0 Homelessness
CPT/HCPCS: 36415; 36591; 80053; 80076; 80305; 80320; 81003; 82962; 83036; 83690; 83735; 85025; 87797; 93005; 94760; 96361; 96365; 96374; 96375; 96376; 99283; 99284; J1630; J1650; J2060; J3475; J3480

== ENCOUNTER 2018-09-21 22:31 | Emergency (ER) | payer SELFPAY ==
[2018-08-03 17:37] VITALS: BMI 33.0
[2018-09-21 22:44] VITALS: BP 252/112; PULSE 115; RESP 24; TEMP 36.4; O2SAT 97
--- NOTE | 2018-09-21 22:48 | DI.CT.S_ITS ---
PROCEDURE: CT ANGIO CHEST ABDOMEN PELVIS INDICATIONS: pain very high BP TECHNIQUE: Precontrast 5 mm thick sections acquired from the lung apices to the iliac crests. After the administration of intravenous contrast, 2.5 mm thick sections again acquired from the lung apices to the iliac crests. Maximum intensity projection (MIP) oblique sagittal and coronal reformats were then acquired. For radiation dose reduction, the following was used: automated exposure control. COMPARISON: None. FINDINGS: Image quality: Excellent. AORTA: Intramural hematoma: Absent Maximum hematoma thickness: Not applicable. Focal contrast enhancement: Intramural blood pool (< 2 mm neck or imperceptible communication with aortic lumen): Absent. Ulcer-like projection (broad communication with aortic lumen > 3 mm): Absent. . Dissection: Absent Stevie classification: Not applicable Maximum aortic diameter: Normal Periaortic hematoma: Absent. CHEST: Lungs and pleura: No acute airspace opacities. No pleural effusions or pneumothorax. Central and peripheral airways are patent and normal in caliber. Mediastinum: Heart size is normal. No pericardial effusion. No mediastinal or hilar adenopathy by size criteria. Central pulmonary arteries are normal in size. Esophagus is normal in caliber. No hiatal hernias. Bones and chest wall: No axillary adenopathy by size criteria. Thyroid gland normal. No suspicious bony lesions. No vertebral body compression fractures. ABDOMEN: Vasculature: Celiac trunk and mesenteric arteries are patent. Renal arteries are also patent. Solid organs: Liver is enlarged in size at 23 cm craniocaudad and normal in enhancement but the liver is markedly fatty infiltrated. Gallbladder normal. Biliary system is non dilated. Pancreas enhances normally. Spleen is normal in size and enhancement. No adrenal nodules. Both kidneys are normal in size and enhancement, without hydronephrosis. Peritoneum and bowel: No free fluid or air. Bowel loops are normal in caliber and wall thickness. Nodes and vessels: No retroperitoneal or mesenteric adenopathy by size criteria. Inferior vena cava is normal in morphology. The right renal artery shows a small degree of narrowing near its origin, less than 50% stenosis. Miscellaneous: No ventral hernias. PELVIS: Genitourinary: Bladder wall thickness is normal. Miscellaneous: No inguinal hernias or adenopathy. No ventral hernias. Bones: No suspicious bony lesions. No vertebral body compression fractures. IMPRESSION: No aneurysm or dissection found. Less than 50% stenosis is noted at the area just beyond the origin of the right renal artery, without an appearance suggestive of renal artery hypertension as source of clinically reported hypertension. Pronounced fatty infiltration throughout the liver, which is enlarged. No splenomegaly or ascites, or varices are currently found. Note: These findings are concordant with the preliminary interpretation. Dictated by: Stanley Delgado M.D. on 09/22/2018 at 8:21 Approved by: Stanley Delgado M.D. on 09/22/2018 at 8:31
[2018-09-21 23:04] LABS: Add Manual Diff / Slide Review NO; Basophils Absolute Auto 0 /uL (0-100); Basophils Percent Auto 0.6 % (0-2); Eosinophils Absolute Auto 0 /uL (0-450); Eosinophils Percent Auto 0.4 % (2-4); Hematocrit 49.5 % (41-53); Hemoglobin 17.1 g/dL (13.5-17.5); Lymphocytes Absolute Auto 1500 /uL (1100-4500); Lymphocytes Percent Auto 23.8 % (25-40); Mean Corpuscular HGB Conc 34.5 % (30-36); Mean Corpuscular Hemoglobin 35.1 PG (26-34); Mean Corpuscular Volume 101.8 fL (80-100); Monocytes Absolute Auto 800 /uL (0-900); Monocytes Percent Auto 12.9 % (3-14); Neutrophils Absolute Auto 4000 /uL (1500-7000); Neutrophils Percent Auto 62.3 % (50-75); Platelet Count 151 X10^3/uL (150-400); Red Blood Cell Count 4.86 X10^6/uL (4.5-5.9); Red Cell Distribution Width 15.5 % (11.6-14.8); White Blood Cell Count 6.4 X10^3/uL (4.5-11.0)
--- NOTE | 2018-09-21 23:09 | PC.NURSE ---
Pt motions up and down abdomen when asked to explain where the pain is. He stats its been hurting constantly for 2 weeks or so. Denies changes in bowel or bladder. Calls symptoms an abdominal seizure. Pt has not taken BP or diabetes medications in two weeks. He states there is no reason why just not taking them.
[2018-09-21 23:10] LABS: INR 1.1 (0.9-1.3)
[2018-09-21 23:12] LABS: Ethanol (ETOH) 288 mg/dL; PTT Partial Thromboplastin Tim 30 SECONDS (26.4-36.2)
[2018-09-21 23:14] LABS: Alanine Aminotransferase 137 IU/L (21-72); Albumin 4.5 g/dL (3.5-5.0); Albumin Globulin Ratio 1.3 (1.0-2.8); Alkaline Phosphatase 186 U/L (38-126); Aspartate Aminotransferase 277 IU/L (17-59); BUN Creatinine Ratio 5.7 (6-22); Blood Urea Nitrogen 4 mg/dL (9-20); Calcium 9.1 mg/dL (8.4-10.2); Carbon Dioxide 25 mmol/L (22-32); Chloride 96 mmol/L (98-107); Creatine Kinase 177 U/L (55-170); Estimated Glomerular Filt Rate > 60.0 mL/min (>60); Globulin 3.6 g/dL (1.7-4.1); Glucose 298 mg/dL (80-110); HEMOLYSIS < 15 (0-50); Lipase 82 U/L (23-300); Potassium 3.9 mmol/L (3.4-5.1); Sodium 136 mmol/L (137-145); Total Protein 8.1 g/dL (6.3-8.2)
[2018-09-21 23:25] LABS: Troponin I 0.013 ng/mL (0.01-0.034)
[2018-09-21 23:28] LABS: B Type Natriuretic Peptide < 100 (<100)
[2018-09-21 23:29] LABS: CKMB % Relative Index 1.9 % (1.5-5.0); Creatine Kinase MB 3.28 ng/mL (<2.37)
[2018-09-21] MEDS: SODIUM CHLORIDE 0.9% 1,000 ML 150 ML IV (23:35)
[2018-09-21 23:36] VITALS: BP 199/102; PULSE 96
[2018-09-21] MEDS: LABETALOL 20 MG/4 ML SYRINGE IV (23:36)
[2018-09-21 23:47] VITALS: BP 171/97; PULSE 88; RESP 19; O2SAT 96
[2018-09-21 23:57] VITALS: BP 137/74; PULSE 79; RESP 18; O2SAT 96
[2018-09-22] VITALS (8 sets, daily range): BP systolic 125–187; BP diastolic 76–100; PULSE 76–87; RESP 15–16; O2SAT 98–100
--- NOTE | 2018-09-22 00:02 | PC.NURSE ---
provider aware of bp after labatalol and gave verbal order to bolus remaining fluids
--- NOTE | 2018-09-22 00:06 | ED_ITS ---
HPI - Abdominal Pain General Chief Complaint: Abdominal Pain Stated Complaint: says seizures in stomach and chest Time Seen by Provider: 09/21/18 22:41 Source: patient Mode of arrival: ambulatory Limitations: no limitations History of Present Illness HPI narrative: The patient is 63-year-old male with history of hypertension diabetes presenting with abdominal pain starting in his epigastric area and moving down to his pelvis ongoing for the last 2 days. Her pain is quite intense. He states that it started this evening he does not really have any chest pain no shortness of breath. Pain comes and goes. He states that he has not taken any of his medication for the last 2 weeks. He has also a known alcoholic. He was admitted here in July for alcohol withdrawal syndrome. He admits to drinking this evening as well. MD complaint: abdominal pain Onset (ago): day(s) (2) Related Data Previous Rx's Medication Instructions Recorded carvedilol [Coreg] 25 mg PO BID #60 tab 08/06/18 folic acid 1 mg PO DAILY #30 tab 08/06/18 hydrochlorothiazide 50 mg PO DAILY #30 tab 08/06/18 losartan 50 mg PO BID #60 tab 08/06/18 metformin [Glucophage] 500 mg PO 0800,1700 #60 tab 08/06/18 nystatin 1 applic TOPICAL PRN PRN #1 tube 08/06/18 chlordiazepoxide HCl 25 mg PO Q12H #2 cap 08/07/18 Allergies Allergy/AdvReac Type Severity Reaction Status Date / Time No Known Drug Allergies Allergy Verified 08/03/18 15:41 Review of Systems Review of Systems ROS Unobtainable: All systems reviewed & are unremarkable except as noted in HPI and below Constitutional Denies chills, Denies fever(s), Denies lethargy and Denies weakness Cardiovascular Denies chest pain, Denies edema, Denies dyspnea and Denies dyspnea on exertion Respiratory Denies cough, Denies dyspnea, Denies dyspnea on exertion and Denies wheezing Gastrointestinal Gastrointestinal: Reports abdominal pain, Denies nausea and Denies vomiting Musculoskeletal Denies back pain, Denies muscle weakness, Denies numbness and Denies tingling Integumentary/Breasts Denies pruritus, Denies erythema, Denies rash and Denies wounds Neurologic Denies confusion, Denies numbness, Denies tingling and Denies weakness Psychiatric Denies anxiety, Denies confusion, Denies depression, Denies homicidal ideation and Denies suicidal ideation Allergic/Immunologic Denies wheezing [facility] [place] Medical History (Updated 09/22/18 @ 02:50 by Elizabeth Baumann DO) Amputated great toe of left foot (Acute) Diabetic neuropathy (Acute) Alcoholism /alcohol abuse (Acute) Hypertension (Acute) Diabetes (Acute) History of amputation of toe (Acute) Surgical History (Updated 08/03/18 @ 17:29 by Shelby Laurent MD) History of appendectomy (Acute) History of tonsillectomy (Acute) No history of previous surgery (Acute) Social History household members: none Smoking Status: Never smoker alcohol intake: current Social History household members: none Smoking Status: Never smoker alcohol intake: current Exam Initial Vital Signs Initial Vital Signs: Vital Signs Temperature 97.5 F L 09/21/18 22:44 Pulse Rate 115 H 09/21/18 22:44 Respiratory Rate 24 09/21/18 22:44 Blood Pressure 252/112 H 09/21/18 22:44 Pulse Oximetry 97 09/21/18 22:44 GENERAL: Middle-age male, alcohol on breath appears in moderate pain HEENT: Head atraumatic,EOMI, pupils reactive, face symmetric, CARDIOVASCULAR: Regular rate and rhythm without murmurs, rubs or gallops. RESPIRATORY: Breath sounds equal bilaterally, no wheezes rales or rhonchi. ABDOMEN: Soft, nontender. Normoactive bowel sounds all 4 quadrants. No guarding or rebound. no pulsatile masses negative right upper quadrant pain EXTREMITIES: Normal range of motion, no clubbing or edema. Neurovascularly intact NEUROLOGICAL: Alert and oriented x4.Normal gait and speech. Cranial nerves II through XII grossly intact. SKIN: Warm, dry, no laceration, no petechiae, no rashes or lesions. Course Orders Ordered: ED Orders 09/21/18 22:40 B Type Natriuretic Peptide Stat Complete Blood Count AUTO DIFF Stat Comprehensive Metabolic Panel Stat Ethanol (ETOH) Stat Lipase Stat Partial Thromboplastin Time Stat Prothrombin Time INR Stat Troponin & CK Cardiac Panel Stat 09/21/18 22:48 CT angio chest abdomen pelvis Stat 09/21/18 22:49 EKG-12 Lead Stat 09/22/18 00:36 US abdomen complete Stat Sodium Chloride (Normal Saline 0.9%) 1,000 mls @ 150 mls/hr IV CONT LYNDA Last Infusion: 09/22/18 00:50 Dose: 0 mls/hr Infusion: 09/22/18 00:01 Dose: 1,000 mls/hr Admin: 09/21/18 23:35 Dose: 150 mls/hr Discontinued Medications Carvedilol (Coreg) 25 mg PO NOW ONE Stop: 09/22/18 01:56 Last Admin: 09/22/18 02:10 Dose: 25 mg Labetalol HCl (Trandate) 20 mg IV NOW ONE Stop: 09/21/18 22:49 Last Admin: 09/21/18 23:36 Dose: 20 mg Vital Signs - 8 hr 09/21/18 23:36 09/21/18 23:47 09/21/18 23:57 Pulse Rate 96 H 88 79 Respiratory Rate 19 18 Blood Pressure 199/102 H Blood Pressure [Left Arm] 171/97 H 137/74 Pulse Oximetry 96 96 09/22/18 00:01 09/22/18 00:10 09/22/18 00:32 Pulse Rate 78 79 82 Respiratory Rate Blood Pressure 142/78 H Blood Pressure [Left Arm] 139/76 150/77 H Pulse Oximetry 09/22/18 01:10 09/22/18 01:51 09/22/18 02:10 Pulse Rate 87 76 84 Respiratory Rate 15 15 Blood Pressure 148/77 H Blood Pressure [Left Arm] 125/76 173/92 H Pulse Oximetry 100 100 MDM - Abdominal Pain Lab Data Attestation: I reviewed the patient's lab results. Result diagrams: 09/21/18 22:40 09/21/18 22:40 Lab Results 09/21/18 09/21/18 09/21/18 Range/Units 22:40 22:40 22:40 WBC 6.4 (4.5-11.0) X10^3/uL RBC 4.86 (4.5-5.9) X10^6/uL Hgb 17.1 (13.5-17.5) g/dL Hct 49.5 (41-53) % MCV 101.8 H (80-100) fL MCH 35.1 H (26-34) PG MCHC 34.5 (30-36) % RDW 15.5 H (11.6-14.8) % Plt Count 151 (150-400) X10^3/uL Neut % (Auto) 62.3 (50-75) % Lymph % (Auto) 23.8 L (25-40) % Kimball % (Auto) 12.9 (3-14) % Eos % (Auto) 0.4 L (2-4) % Baso % (Auto) 0.6 (0-2) % Neut # (Auto) 4000 (0265-6091) /uL Lymph # (Auto) 1500 (4844-9057) /uL Kimball # (Auto) 800 (0-900) /uL Eos # (Auto) 0 (0-450) /uL Baso # (Auto) 0 (0-100) /uL PT 13.0 H (10.1-12.7) SECONDS INR 1.1 (0.9-1.3) APTT 30 (26.4-36.2) SECONDS Sodium (137-145) mmol/L Potassium (3.4-5.1) mmol/L Chloride (98-107) mmol/L Carbon Dioxide (22-32) mmol/L BUN (9-20) mg/dL Creatinine (0.66-1.25) mg/dL Estimated GFR (>60) mL/min BUN/Creatinine Ratio (6-22) Glucose (80-110) mg/dL Calcium (8.4-10.2) mg/dL Total Bilirubin (0.2-1.3) mg/dL AST (17-59) IU/L ALT (21-72) IU/L Alkaline Phosphatase (38-126) U/L Total Creatine Kinase (55-170) U/L CK-MB (CK-2) (<2.37) ng/mL CK-MB (CK-2) Rel Index (1.5-5.0) % Troponin I (0.01-0.034) ng/mL B-Natriuretic Peptide < 100 (<100) Total Protein (6.3-8.2) g/dL Albumin (3.5-5.0) g/dL Globulin (1.7-4.1) g/dL Albumin/Globulin Ratio (1.0-2.8) Lipase (23-300) U/L Ethyl Alcohol mg/dL 09/21/18 09/21/18 Range/Units 22:40 22:40 WBC (4.5-11.0) X10^3/uL RBC (4.5-5.9) X10^6/uL Hgb (13.5-17.5) g/dL Hct (41-53) % MCV (80-100) fL MCH (26-34) PG MCHC (30-36) % RDW (11.6-14.8) % Plt Count (150-400) X10^3/uL Neut % (Auto) (50-75) % Lymph % (Auto) (25-40) % Kimball % (Auto) (3-14) % Eos % (Auto) (2-4) % Baso % (Auto) (0-2) % Neut # (Auto) (5984-6027) /uL Lymph # (Auto) (5656-4297) /uL Kimball # (Auto) (0-900) /uL Eos # (Auto) (0-450) /uL Baso # (Auto) (0-100) /uL PT (10.1-12.7) SECONDS INR (0.9-1.3) APTT (26.4-36.2) SECONDS Sodium 136 L (137-145) mmol/L Potassium 3.9 (3.4-5.1) mmol/L Chloride 96 L (98-107) mmol/L Carbon Dioxide 25 (22-32) mmol/L BUN 4 L (9-20) mg/dL Creatinine 0.70 (0.66-1.25) mg/dL Estimated GFR > 60.0 (>60) mL/min BUN/Creatinine Ratio 5.7 L (6-22) Glucose 298 H (80-110) mg/dL Calcium 9.1 (8.4-10.2) mg/dL Total Bilirubin 2.0 H (0.2-1.3) mg/dL AST 277 H (17-59) IU/L ALT 137 H (21-72) IU/L Alkaline Phosphatase 186 H (38-126) U/L Total Creatine Kinase 177 H (55-170) U/L CK-MB (CK-2) 3.28 H (<2.37) ng/mL CK-MB (CK-2) Rel Index 1.9 (1.5-5.0) % Troponin I 0.013 (0.01-0.034) ng/mL B-Natriuretic Peptide (<100) Total Protein 8.1 (6.3-8.2) g/dL Albumin 4.5 (3.5-5.0) g/dL Globulin 3.6 (1.7-4.1) g/dL Albumin/Globulin Ratio 1.3 (1.0-2.8) Lipase 82 (23-300) U/L Ethyl Alcohol 288 mg/dL Point of care testing: Urine Dip Bedside Urine Glucose 250 mg/dl Bedside Urine Bilirubin - Negative Bedside Urine Ketone - Negative Urine Specific Avery 1.010 Bedside Urine Occult Blood - Negative Bedside Urine pH 6.0 Bedside Urine Protein - Negative Bedside Urine Urobilinogen - Negative Bedside Urine Nitrite - Negative Bedside Urine Leukocytes - Negative Esterase Imaging Data CTA chest/ab/pelvis: Radiologist's impression: Radia Right shift Normal CTA of the chest. A 50% stenosis of the origin right renal artery fatty infiltration of the liver no other abnormalities US - abdomen: Radiologist's impression: Radial report: Fatty infiltration of liver. C ommon bile duct normal 6 mm no paralytic cholecystic fluid or gallbladder wall thickening. No cholelithiasis. Gallbladder sludge noted ECG Data Attestation: I personally reviewed and interpreted this ECG as follows: Prior ECG tracings: available for review Interpretation: Sinus rhythm rate [address] changes no T-wave elevations similar to previous EKG in July 2018 [facility] Narrative Medical decision making narrative: Initially patient was extremely hypertensive and complaining of abscess abdominal pain that was migrating down concern for dissection. Patient went immediately to CT angio. He is a given labetalol for his blood pressure. His blood pressure did decrease quite a bit however started to slowly increase back up at which point he was given his Coreg. Patient no longer having any abdominal pain or chest pain in fact asking if he can stay the night. Patient received 1 L of IV fluids. He has not been taking his metformin withheld hold off metformin for few days. However at this time I see no indication for admission. He has previously had higher elevation of liver enzymes. Bilirubin has also been hired there is no known common bile duct stone. Patient is sleeping. Will wait for him to be sober or for Ludesi to start running. Discharge Plan Departure Patient Disposition: Home Clinical Impression: Hypertension Qualifiers: Hypertension type: essential hypertension Qualified Code(s): I10 - Essential (primary) hypertension Instructions: Essential Hypertension Activity Restrictions/Additional Instructions: *You have been diagnosed with hypertension *What to do: Is imperative that he take your medications as prescribed. Persistently elevated blood pressure can lead to heart attack or stroke You do have some gallbladder sludge and may eventually require gallbladder surgery however not indicated at this time *Continue to take medications as directed -hold restarting metformin for 2 days who had IV contrast this can be more damaging to your kidney -restart blood pressure medication as previously prescribed *Follow up with your primary care provider in 2-3 days *Return to ER if you should have increasing pain, fever, chest pain shortness of or any new, worsening or concerning symptoms Prescriptions: No Action carvedilol [Coreg] 25 mg Tablet 25 mg PO BID Qty: 60 RF: 0 folic acid 1 mg Tablet 1 mg PO DAILY Qty: 30 RF: 0 losartan 50 mg Tablet 50 mg PO BID Qty: 60 RF: 0 metformin [Glucophage] 500 mg Tablet 500 mg PO 0800,1700 Qty: 60 RF: 0 hydrochlorothiazide 50 mg tablet 50 mg PO DAILY Qty: 30 RF: 0 nystatin 100,000 unit/gram Cream 1 applic topical PRN PRN (Reason: Rash) Qty: 1 RF: 0 chlordiazepoxide HCl 25 mg capsule 25 mg PO Q12H Qty: 2 RF: 0
--- NOTE | 2018-09-22 00:36 | DI.US.S_ITS ---
PROCEDURE: US ABDOMEN COMPLETE INDICATIONS: RIGHT UPPER QUADRANT PAIN TECHNIQUE: Real-time scanning was performed of the abdominal and retroperitoneal organs, with image documentation. COMPARISON: [facility], CT, CT ANGIO CHEST ABDOMEN PELVIS, 09/21/2018, 22:57. FINDINGS: Liver: Liver is diffusely increased in echogenicity. No focal hepatic abnormalities identified. Normal hepatic size. Gallbladder: No gallstones identified. Intraluminal low level echoes suggestive of gallbladder sludge. Normal gallbladder wall. No pericholecystic fluid. Negative sonographic Garces sign. Biliary ducts: Intrahepatic bile ducts are non-dilated. Extrahepatic bile duct caliber measures 1.7 mm. Normal is 6-7 mm or less in diameter, or 10 mm or less post-cholecystectomy. Pancreas: Visualized portions of the pancreas are sonographically normal. Spleen: Spleen is normal in size and homogeneous in echotexture. Kidneys: Kidneys are normal in size and echotexture. Right kidney measures 13.0 cm long; left kidney measures 12.9 cm long. No hydronephrosis or nephrolithiasis. No solid masses. Aorta: Visualized aorta is normal in caliber at less than 3 cm. Iliacs: Proximal common iliac arteries are normal in caliber at less than 2.5 cm. IVC: Intrahepatic inferior vena cava is patent. Miscellaneous: No free abdominal fluid. IMPRESSION: Increased hepatic echogenicity noted possibly related to hepatic steatosis but other sources of hepatocellular disease cannot be excluded. Recommend clinical correlation. Gallbladder sludge. Note: These findings are concordant with the preliminary interpretation. Dictated by: Corey FERREIRA Interpreted: Ananda Chavira MD on 09/22/2018 at 8:56 Approved by: Ananda Chavira M.D. on 09/22/2018 at 13:44
[2018-09-22] MEDS: CARVEDILOL 25 MG TABLET PO (02:10)
--- NOTE | 2018-09-22 08:39 | PC.NURSE ---
Brought patient breakfast tray
--- NOTE | 2018-09-22 09:24 | PC.NURSE ---
States he still feels unwell. Feels well enough to drive home and is sober at this time. I encouraged him to call a cab if that changes. Reports he will follow up with primary care this week.
== END 2018-09-22 09:26 | disposition home or self-care (01) ==
PROVIDERS: Emergency Provider Emergency Medicine
DX: I10 Essential (primary) hypertension (principal); R10.2 Pelvic and perineal pain; R10.9 Unspecified abdominal pain
CPT/HCPCS: 36591; 71275; 74174; 76700; 80053; 80320; 81003; 82075; 82550; 82553; 83690; 83880; 84484; 85025; 85610; 85730; 93005; 93010; 96361; 96374; 99285; Q9967

== ENCOUNTER 2018-10-11 09:38 | Emergency (ER) | payer SELFPAY ==
[2018-08-03 17:37] VITALS: BMI 33.0
[2018-10-11 09:44] VITALS: BP 113/67; PULSE 100; RESP 20; TEMP 36.4; O2SAT 100; BMI 21.1
--- NOTE | 2018-10-11 10:02 | ED.SYNCOPE ---
HPI - Syncope General Chief Complaint: Syncope Stated Complaint: Fainted, want Blood pressure checked Time Seen by Provider: 10/11/18 09:40 Source: patient and family Mode of arrival: ambulatory Limitations: no limitations History of Present Illness HPI narrative: 63-year-old male smoker and daily drinker presents to the emergency department with a chief complaint of feeling dizzy, weak and lightheaded and suffering a near syncopal episode while standing up earlier. He has full recall of the event and did not completely lose consciousness, he lowered himself to the ground. He denies any chest pain shortness of breath nor nausea or vomiting. He denies any recent travel or history of blood clot. He does state that he thinks it is entirely possible that he may have accidentally had an extra blood pressure this morning, furthermore he has had a rather poor appetite as well. MD complaint: felt faint and almost passed out Onset (ago): minute(s) -: second(s) Prodromal symptoms: lightheaded Witnessed: no Context: standing up Injuries sustained associated with event: none Current symptoms: none and back to baseline Treatments prior to arrival: none Related Data Previous Rx's Medication Instructions Recorded carvedilol [Coreg] 25 mg PO BID #60 tab 08/06/18 folic acid 1 mg PO DAILY #30 tab 08/06/18 hydrochlorothiazide 50 mg PO DAILY #30 tab 08/06/18 losartan 50 mg PO BID #60 tab 08/06/18 metformin [Glucophage] 500 mg PO 0800,1700 #60 tab 08/06/18 nystatin 1 applic TOPICAL PRN PRN #1 tube 08/06/18 chlordiazepoxide HCl 25 mg PO Q12H #2 cap 08/07/18 Allergies Allergy/AdvReac Type Severity Reaction Status Date / Time No Known Drug Allergies Allergy Verified 10/11/18 09:52 Review of Systems Review of Systems ROS Unobtainable: All systems reviewed & are unremarkable except as noted in HPI and below Constitutional Denies chills, Denies fever(s), Denies lethargy and Denies weakness Eyes Denies change in vision, Denies eye discharge, Denies irritation and Denies loss of vision ENT Ears, Nose, Mouth, and Throat: Denies change in voice, Denies neck pain and Denies sore throat Cardiovascular Denies chest pain, Denies irregular heart rhythm, Denies lightheadedness, Denies palpitations, Denies dyspnea, Denies dyspnea on exertion and Denies orthopnea Comments: Near syncope Respiratory Denies cough, Denies dyspnea, Denies dyspnea on exertion and Denies wheezing Gastrointestinal Gastrointestinal: Denies abdominal pain, Denies change in bowel habits, Denies diarrhea, Denies nausea and Denies vomiting Genitourinary Denies hematuria, Denies flank pain, Denies urinary incontinence and Denies urinary urgency Musculoskeletal Denies neck pain Integumentary/Breasts Denies pruritus, Denies erythema, Denies rash and Denies wounds Neurologic Denies confusion, Denies loss of vision and Denies weakness Psychiatric Denies anxiety, Denies confusion, Denies depression, Denies homicidal ideation and Denies suicidal ideation Endocrine Denies palpitations Hematologic/Lymphatic Denies easy bruising Allergic/Immunologic Denies wheezing [facility] Medical History Amputated great toe of left foot (Acute) Diabetic neuropathy (Acute) Alcoholism /alcohol abuse (Acute) Hypertension (Acute) Diabetes (Acute) History of amputation of toe (Acute) Surgical History History of appendectomy (Acute) History of tonsillectomy (Acute) No history of previous surgery (Acute) Social History household members: none Smoking Status: Never smoker alcohol intake: current Social History household members: none Smoking Status: Never smoker alcohol intake: current Exam Narrative Exam Narrative: GENERAL: This is a well-nourished, well-developed patient, in mild distress. HEAD: Atraumatic. Normocephalic. No temporal or scalp tenderness. EYES: Pupils equal round and reactive. Extraocular motions intact. No scleral icterus. No injection or drainage. ENT: Nose without bleeding, purulent drainage or septal hematoma. Throat without erythema, tonsillar hypertrophy or exudate. Uvula midline. Airway patent. NECK: Trachea midline. No JVD or lymphadenopathy. Supple, nontender, no meningeal signs. CARDIOVASCULAR: Regular rate and rhythm without murmurs, gallops, or rubs. RESPIRATORY: Clear to auscultation. Breath sounds equal bilaterally. No wheezes, rales, or rhonchi. GASTROINTESTINAL: Abdomen soft, non-tender, nondistended. No hepato-splenomegaly, or palpable masses. No guarding. EXTREMITIES: No clubbing, cyanosis, or edema. No joint tenderness, effusion, or edema noted. BACK: Nontender without deformity or crepitance. No flank tenderness. NEURO: AOx3. SKIN: No rash or erythema. Initial Vital Signs Initial Vital Signs: Vital Signs Temperature 97.5 F L 10/11/18 09:44 Pulse Rate 100 H 10/11/18 09:44 Respiratory Rate 20 10/11/18 09:44 Blood Pressure 113/67 10/11/18 09:44 Pulse Oximetry 100 10/11/18 09:44 Course Course Narrative: The patient a bit orthostatic at 1st but had complete resolution of symptoms and improvement of orthostatic vital signs after 1 L of fluid. He was off her 2nd L and ongoing observation but patient was ready to leave. Orders Ordered: Discontinued Medications Sodium Chloride (Normal Saline 0.9%) 1,000 mls @ 1,000 mls/hr IV BOLUS ONE Stop: 10/11/18 11:17 Last Infusion: 10/11/18 11:55 Dose: 0 mls/hr Admin: 10/11/18 10:27 Dose: 1,000 mls/hr Vital Signs - 8 hr 10/11/18 09:44 10/11/18 10:29 10/11/18 11:51 Temperature 97.5 F L Pulse Rate 100 H Pulse Rate [Orthostatic Lying] 71 66 Pulse Rate [Orthostatic Sitting] 76 68 Pulse Rate [Orthostatic Standing] 86 70 Respiratory Rate 20 Blood Pressure 113/67 Blood Pressure [Left Arm] Blood Pressure [Orthostatic Lying] 141/77 H 155/78 H Blood Pressure [Orthostatic Sitting] 120/59 L 162/78 H Blood Pressure [Orthostatic Standing] 98/60 145/75 H Pulse Oximetry 100 10/11/18 11:54 Temperature Pulse Rate 68 Pulse Rate [Orthostatic Lying] Pulse Rate [Orthostatic Sitting] Pulse Rate [Orthostatic Standing] Respiratory Rate 16 Blood Pressure Blood Pressure [Left Arm] 145/75 H Blood Pressure [Orthostatic Lying] Blood Pressure [Orthostatic Sitting] Blood Pressure [Orthostatic Standing] Pulse Oximetry 98 MDM - Syncope Differential Diagnosis Likely syncope due to orthostatic hypotension, vasovagal syncope, complete atrioventricular block, subarachnoid hemorrhage, pulmonary embolism and dehydration Medical Records Attestation: I reviewed the patient's medical records. Lab Data Attestation: I reviewed the patient's lab results. Result diagrams: 10/11/18 10:20 10/11/18 10:20 Lab Results 10/11/18 10/11/18 10/11/18 Range/Units 10:20 10:20 10:20 WBC 7.7 (4.5-11.0) X10^3/uL RBC 4.36 L (4.5-5.9) X10^6/uL Hgb 15.8 (13.5-17.5) g/dL Hct 45.4 (41-53) % MCV 104.0 H (80-100) fL MCH 36.2 H (26-34) PG MCHC 34.8 (30-36) % RDW 15.1 H (11.6-14.8) % Plt Count 164 (150-400) X10^3/uL Neut % (Auto) 76.1 H (50-75) % Lymph % (Auto) 10.7 L (25-40) % [place] % (Auto) 12.0 (3-14) % Eos % (Auto) 0.6 L (2-4) % Baso % (Auto) 0.6 (0-2) % Neut # (Auto) 5900 (1219-6951) /uL Lymph # (Auto) 800 L (2729-3197) /uL [place] # (Auto) 900 (0-900) /uL Eos # (Auto) 0 (0-450) /uL Baso # (Auto) 0 (0-100) /uL Sodium 135 L (137-145) mmol/L Potassium 3.4 (3.4-5.1) mmol/L Chloride 94 L (98-107) mmol/L Carbon Dioxide 30 (22-32) mmol/L BUN 10 (9-20) mg/dL Creatinine 0.80 (0.66-1.25) mg/dL Estimated GFR > 60.0 (>60) mL/min BUN/Creatinine Ratio 12.5 (6-22) Glucose 213 H (80-110) mg/dL Calcium 9.3 (8.4-10.2) mg/dL Magnesium 1.6 (1.6-2.3) mg/dL Total Bilirubin 2.9 H (0.2-1.3) mg/dL AST 163 H (17-59) IU/L ALT 109 H (21-72) IU/L Alkaline Phosphatase 155 H (38-126) U/L Total Creatine Kinase 53 L (55-170) U/L CK-MB (CK-2) TNP CK-MB (CK-2) Rel Index TNP Troponin I 0.019 (0.01-0.034) ng/mL Total Protein 7.1 (6.3-8.2) g/dL Albumin 3.9 (3.5-5.0) g/dL Globulin 3.2 (1.7-4.1) g/dL Albumin/Globulin Ratio 1.2 (1.0-2.8) Point of Care Testing Glucose POC 188 Urine Dip Bedside Urine Glucose Negative Bedside Urine Bilirubin - Negative Bedside Urine Ketone - Negative Urine Specific [place] 1.015 Bedside Urine Occult Blood - Negative Bedside Urine pH 6.0 Bedside Urine Protein - Negative Bedside Urine Urobilinogen - Negative Bedside Urine Nitrite - Negative Bedside Urine Leukocytes - Negative Esterase Imaging Data Chest x-ray: Radiologist's impression: [address] [address] XRay Report Signed Patient: Nathan Crow R#: [id number] : 3Acct:[id number] Age/Sex: 63 / MDate of Service: 10/11/18 Loc: ED Accession Number: [id number] Procedure: XR chest 1V Ordering Provider: Collins Salmeron D.O. PROCEDURE: XR CHEST 1V INDICATIONS: syncope TECHNIQUE: One view of the chest was acquired. COMPARISON: [facility], CT, CT ANGIO CHEST ABDOMEN PELVIS, 09/21/2018, 22:57. FINDINGS: Surgical changes and devices: None. Lungs and pleura: Lungs are clear. No pleural effusions or pneumothorax. Mediastinum: Mediastinal contours appear normal. Heart size is at the upper limits of normal. Bones and chest wall: No suspicious bony lesions. Overlying soft tissues appear unremarkable. IMPRESSION: 1. No acute cardiopulmonary disease. Dictated by: Jose Jean M.D. on 10/11/2018 at 10:57 Approved by: Jose Jean M.D. on 10/11/2018 at 10:58 MDM Narrative Medical decision making narrative: Multiple etiologies for patient's symptoms considered including: [orthostatic hypotension vs. arrhythmia vs. other] Patient's symptoms improved or duration of stay with above-stated therapies. Findings and discharge diagnosis discussed with patient/family followed by verbalization of understanding Return precautions discussed with patient/family whom verbalize understanding. Discharge Plan Departure Patient Disposition: Home Clinical Impression: Near syncope Discharge Date/Time: 10/11/18 12:11 Interventions: ED Discharge Assessment Last Done: 10/11/18 12:10 Instructions: DI for Syncope in Adults (Fainting) Activity Restrictions/Additional Instructions: *You have been diagnosed with [ near syncope, orthostatic hypotension ] *What to do: *Take medications as directed. Drink plenty of fluids *Follow up with your primary care provider in 2-3 days, call for an appointment. Let them know you were seen in the Emergency Department and that we ask that you be seen in follow up *Return to ER if you should have any new, worsening or concerning symptoms Prescriptions: No Action carvedilol [Coreg] 25 mg Tablet 25 mg PO BID Qty: 60 RF: 0 folic acid 1 mg Tablet 1 mg PO DAILY Qty: 30 RF: 0 losartan 50 mg Tablet 50 mg PO BID Qty: 60 RF: 0 metformin [Glucophage] 500 mg Tablet 500 mg PO 0800,1700 Qty: 60 RF: 0 hydrochlorothiazide 50 mg tablet 50 mg PO DAILY Qty: 30 RF: 0 nystatin 100,000 unit/gram Cream 1 applic topical PRN PRN (Reason: Rash) Qty: 1 RF: 0 chlordiazepoxide HCl 25 mg capsule 25 mg PO Q12H Qty: 2 RF: 0 Referrals: Alvaro Cho MD [Primary Care Provider] -
--- NOTE | 2018-10-11 10:19 | DI.RAD.S_ITS ---
PROCEDURE: XR CHEST 1V INDICATIONS: syncope TECHNIQUE: One view of the chest was acquired. COMPARISON: [facility], CT, CT ANGIO CHEST ABDOMEN PELVIS, 09/21/2018, 22:57. FINDINGS: Surgical changes and devices: None. Lungs and pleura: Lungs are clear. No pleural effusions or pneumothorax. Mediastinum: Mediastinal contours appear normal. Heart size is at the upper limits of normal. Bones and chest wall: No suspicious bony lesions. Overlying soft tissues appear unremarkable. IMPRESSION: 1. No acute cardiopulmonary disease. Dictated by: Jose Jean M.D. on 10/11/2018 at 10:57 Approved by: Jose Jean M.D. on 10/11/2018 at 10:58
[2018-10-11 10:26] LABS: Add Manual Diff / Slide Review NO; Basophils Absolute Auto 0 /uL (0-100); Basophils Percent Auto 0.6 % (0-2); Eosinophils Absolute Auto 0 /uL (0-450); Eosinophils Percent Auto 0.6 % (2-4); Hematocrit 45.4 % (41-53); Hemoglobin 15.8 g/dL (13.5-17.5); Lymphocytes Absolute Auto 800 /uL (1100-4500); Lymphocytes Percent Auto 10.7 % (25-40); Mean Corpuscular HGB Conc 34.8 % (30-36); Mean Corpuscular Hemoglobin 36.2 PG (26-34); Monocytes Absolute Auto 900 /uL (0-900); Neutrophils Absolute Auto 5900 /uL (1500-7000); Neutrophils Percent Auto 76.1 % (50-75); Platelet Count 164 X10^3/uL (150-400); Red Blood Cell Count 4.36 X10^6/uL (4.5-5.9); Red Cell Distribution Width 15.1 % (11.6-14.8); White Blood Cell Count 7.7 X10^3/uL (4.5-11.0)
[2018-10-11] MEDS: SODIUM CHLORIDE 0.9% 1,000 ML 1000 ML IV (10:27)
[2018-10-11 10:29] VITALS: BP 120/59; BP 141/77; BP 98/60; PULSE 71; PULSE 76; PULSE 86
--- NOTE | 2018-10-11 10:31 | PC.NURSE ---
Patient was able to sit at bedside for orthostatic vitals and was becoming increasingly dizzy and lightheaded. When he stood after a few seconds patient became shaky and I helped keep him steady while the blood pressure cuff went off. Patient is not safe to walk currently. Nurse giving fluids
[2018-10-11 10:38] LABS: Magnesium 1.6 mg/dL (1.6-2.3)
[2018-10-11 10:39] LABS: Alanine Aminotransferase 109 IU/L (21-72); Albumin 3.9 g/dL (3.5-5.0); Albumin Globulin Ratio 1.2 (1.0-2.8); Alkaline Phosphatase 155 U/L (38-126); Aspartate Aminotransferase 163 IU/L (17-59); BUN Creatinine Ratio 12.5 (6-22); Bilirubin Total 2.9 mg/dL (0.2-1.3); Blood Urea Nitrogen 10 mg/dL (9-20); Calcium 9.3 mg/dL (8.4-10.2); Carbon Dioxide 30 mmol/L (22-32); Chloride 94 mmol/L (98-107); Creatine Kinase 53 U/L (55-170); Estimated Glomerular Filt Rate > 60.0 mL/min (>60); Globulin 3.2 g/dL (1.7-4.1); Glucose 213 mg/dL (80-110); HEMOLYSIS < 15 (0-50); Potassium 3.4 mmol/L (3.4-5.1); Sodium 135 mmol/L (137-145); Total Protein 7.1 g/dL (6.3-8.2)
[2018-10-11 10:51] LABS: Troponin I 0.019 ng/mL (0.01-0.034)
[2018-10-11 11:51] VITALS: BP 145/75; BP 155/78; BP 162/78; PULSE 66; PULSE 68; PULSE 70
--- NOTE | 2018-10-11 11:52 | PC.NURSE ---
Dr. Salmeron aware that patient is no longer experiencing orthostatic hypotension, denies any dizziness while standing. Does not need 2nd liter of NS per Jaron.
[2018-10-11 11:54] VITALS: BP 145/75; PULSE 68; RESP 16; O2SAT 98
--- NOTE | 2018-10-11 11:58 | ED_ITS ---
HPI - Syncope General Chief Complaint: Syncope Stated Complaint: Fainted, want Blood pressure checked Time Seen by Provider: 10/11/18 09:40 Source: patient and family Mode of arrival: ambulatory Limitations: no limitations History of Present Illness HPI narrative: 63-year-old male smoker and daily drinker presents to the emergency department with a chief complaint of feeling dizzy, weak and lightheaded and suffering a near syncopal episode while standing up earlier. He has full recall of the event and did not completely lose consciousness, he lowered himself to the ground. He denies any chest pain shortness of breath nor nausea or vomiting. He denies any recent travel or history of blood clot. He does state that he thinks it is entirely possible that he may have accidentally had an extra blood pressure this morning, furthermore he has had a rather poor appetite as well. MD complaint: felt faint and almost passed out Onset (ago): minute(s) -: second(s) Prodromal symptoms: lightheaded Witnessed: no Context: standing up Injuries sustained associated with event: none Current symptoms: none and back to baseline Treatments prior to arrival: none Related Data Previous Rx's Medication Instructions Recorded carvedilol [Coreg] 25 mg PO BID #60 tab 08/06/18 folic acid 1 mg PO DAILY #30 tab 08/06/18 hydrochlorothiazide 50 mg PO DAILY #30 tab 08/06/18 losartan 50 mg PO BID #60 tab 08/06/18 metformin [Glucophage] 500 mg PO 0800,1700 #60 tab 08/06/18 nystatin 1 applic TOPICAL PRN PRN #1 tube 08/06/18 chlordiazepoxide HCl 25 mg PO Q12H #2 cap 08/07/18 Allergies Allergy/AdvReac Type Severity Reaction Status Date / Time No Known Drug Allergies Allergy Verified 10/11/18 09:52 Review of Systems Review of Systems ROS Unobtainable: All systems reviewed & are unremarkable except as noted in HPI and below Constitutional Denies chills, Denies fever(s), Denies lethargy and Denies weakness Eyes Denies change in vision, Denies eye discharge, Denies irritation and Denies loss of vision ENT Ears, Nose, Mouth, and Throat: Denies change in voice, Denies neck pain and Denies sore throat Cardiovascular Denies chest pain, Denies irregular heart rhythm, Denies lightheadedness, Denies palpitations, Denies dyspnea, Denies dyspnea on exertion and Denies orthopnea Comments: Near syncope Respiratory Denies cough, Denies dyspnea, Denies dyspnea on exertion and Denies wheezing Gastrointestinal Gastrointestinal: Denies abdominal pain, Denies change in bowel habits, Denies diarrhea, Denies nausea and Denies vomiting Genitourinary Denies hematuria, Denies flank pain, Denies urinary incontinence and Denies urinary urgency Musculoskeletal Denies neck pain Integumentary/Breasts Denies pruritus, Denies erythema, Denies rash and Denies wounds Neurologic Denies confusion, Denies loss of vision and Denies weakness Psychiatric Denies anxiety, Denies confusion, Denies depression, Denies homicidal ideation and Denies suicidal ideation Endocrine Denies palpitations Hematologic/Lymphatic Denies easy bruising Allergic/Immunologic Denies wheezing [facility] Medical History Amputated great toe of left foot (Acute) Diabetic neuropathy (Acute) Alcoholism /alcohol abuse (Acute) Hypertension (Acute) Diabetes (Acute) History of amputation of toe (Acute) Surgical History History of appendectomy (Acute) History of tonsillectomy (Acute) No history of previous surgery (Acute) Social History household members: none Smoking Status: Never smoker alcohol intake: current Social History household members: none Smoking Status: Never smoker alcohol intake: current Exam Narrative Exam Narrative: GENERAL: This is a well-nourished, well-developed patient, in m ild distress. HEAD: Atraumatic. Normocephalic. No temporal or scalp tenderness. EYES: Pupils equal round and reactive. Extraocular motions intact. No scleral icterus. No injection or drainage. ENT: Nose without bleeding, purulent drainage or septal hematoma. Throat without erythema, tonsillar hypertrophy or exudate. Uvula midline. Airway patent. NECK: Trachea midline. No JVD or lymphadenopathy. Supple, nontender, no meningeal signs. CARDIOVASCULAR: Regular rate and rhythm without murmurs, gallops, or rubs. RESPIRATORY: Clear to auscultation. Breath sounds equal bilaterally. No wheezes, rales, or rhonchi. GASTROINTESTINAL: Abdomen soft, non-tender, nondistended. No hepato- splenomegaly, or palpable masses. No guarding. EXTREMITIES: No clubbing, cyanosis, or edema. No joint tenderness, effusion, or edema noted. BACK: Nontender without deformity or crepitance. No flank tenderness. NEURO: AOx3. SKIN: No rash or erythema. Initial Vital Signs Initial Vital Signs: Vital Signs Temperature 97.5 F L 10/11/18 09:44 Pulse Rate 100 H 10/11/18 09:44 Respiratory Rate 20 10/11/18 09:44 Blood Pressure 113/67 10/11/18 09:44 Pulse Oximetry 100 10/11/18 09:44 Course Course Narrative: The patient a bit orthostatic at 1st but had complete resolution of symptoms and improvement of orthostatic vital signs after 1 L of fluid. He was off her 2nd L and ongoing observation but patient was ready to leave. Orders Ordered: Discontinued Medications Sodium Chloride (Normal Saline 0.9%) 1,000 mls @ 1,000 mls/hr IV BOLUS ONE Stop: 10/11/18 11:17 Last Infusion: 10/11/18 11:55 Dose: 0 mls/hr Admin: 10/11/18 10:27 Dose: 1,000 mls/hr Vital Signs - 8 hr 10/11/18 09:44 10/11/18 10:29 10/11/18 11:51 Temperature 97.5 F L Pulse Rate 100 H Pulse Rate [Orthostatic Lying] 71 66 Pulse Rate [Orthostatic Sitting] 76 68 Pulse Rate [Orthostatic Standing] 86 70 Respiratory Rate 20 Blood Pressure 113/67 Blood Pressure [Left Arm] Blood Pressure [Orthostatic Lying] 141/77 H 155/78 H Blood Pressure [Orthostatic Sitting] 120/59 L 162/78 H Blood Pressure [Orthostatic Standing] 98/60 145/75 H Pulse Oximetry 100 10/11/18 11:54 Temperature Pulse Rate 68 Pulse Rate [Orthostatic Lying] Pulse Rate [Orthostatic Sitting] Pulse Rate [Orthostatic Standing] Respiratory Rate 16 Blood Pressure Blood Pressure [Left Arm] 145/75 H Blood Pressure [Orthostatic Lying] Blood Pressure [Orthostatic Sitting] Blood Pressure [Orthostatic Standing] Pulse Oximetry 98 MDM - Syncope Differential Diagnosis Likely syncope due to orthostatic hypotension, vasovagal syncope, complete atrioventricular block, subarachnoid hemorrhage, pulmonary embolism and dehydration Medical Records Attestation: I reviewed the patient's medical records. Lab Data Attestation: I reviewed the patient's lab results. Result diagrams: 10/11/18 10:20 10/11/18 10:20 Lab Results 10/11/18 10/11/18 10/11/18 Range/Units 10:20 10:20 10:20 WBC 7.7 (4.5-11.0) X10^3/uL RBC 4.36 L (4.5-5.9) X10^6/uL Hgb 15.8 (13.5-17.5) g/dL Hct 45.4 (41-53) % MCV 104.0 H (80-100) fL MCH 36.2 H (26-34) PG MCHC 34.8 (30-36) % RDW 15.1 H (11.6-14.8) % Plt Count 164 (150-400) X10^3/uL Neut % (Auto) 76.1 H (50-75) % Lymph % (Auto) 10.7 L (25-40) % [place] % (Auto) 12.0 (3-14) % Eos % (Auto) 0.6 L (2-4) % Baso % (Auto) 0.6 (0-2) % Neut # (Auto) 5900 (9295-5404) /uL Lymph # (Auto) 800 L (1335-6490) /uL [place] # (Auto) 900 (0-900) /uL Eos # (Auto) 0 (0-450) /uL Baso # (Auto) 0 (0-100) /uL Sodium 135 L (137-145) mmol/L Potassium 3.4 (3.4-5.1) mmol/L Chloride 94 L (98-107) mmol/L Carbon Dioxide 30 (22-32) mmol/L BUN 10 (9-20) mg/dL Creatinine 0.80 (0.66-1.25) mg/dL Estimated GFR > 60.0 (>60) mL/min BUN/Creatinine Ratio 12.5 (6-22) Glucose 213 H (80-110) mg/dL Calcium 9.3 (8.4-10.2) mg/dL Magnesium 1.6 (1.6-2.3) mg/dL Total Bilirubin 2.9 H (0.2-1.3) mg/dL AST 163 H (17-59) IU/L ALT 109 H (21-72) IU/L Alkaline Phosphatase 155 H (38-126) U/L Total Creatine Kinase 53 L (55-170) U/L CK-MB (CK-2) TNP CK-MB (CK-2) Rel Index TNP Troponin I 0.019 (0.01-0.034) ng/mL Total Protein 7.1 (6.3-8.2) g/dL Albumin 3.9 (3.5-5.0) g/dL Globulin 3.2 (1.7-4.1) g/dL Albumin/Globulin Ratio 1.2 (1.0-2.8) Point of Care Testing Glucose POC 188 Urine Dip Bedside Urine Glucose Negative Bedside Urine Bilirubin - Negative Bedside Urine Ketone - Negative Urine Specific [place] 1.015 Bedside Urine Occult Blood - Negative Bedside Urine pH 6.0 Bedside Urine Protein - Negative Bedside Urine Urobilinogen - Negative Bedside Urine Nitrite - Negative Bedside Urine Leukocytes - Negative Esterase Imaging Data Chest x-ray: Radiologist's impression: [address] [address] XRay Report Signed Patient: Nathan Crow JMR#: [id number] : 3Acct:[id number] Age/Sex: 63 / MDate of Service: 10/11/18 Loc: ED Accession Number: [id number] Procedure: XR chest 1V Ordering Provider: Collins Salmeron D.O. PROCEDURE: XR CHEST 1V INDICATIONS: syncope TECHNIQUE: One view of the chest was acquired. COMPARISON: [facility], CT, CT ANGIO CHEST ABDOMEN PELVIS, 09/21/2018, 22:57. FINDINGS: Surgical changes and devices: None. Lungs and pleura: Lungs are clear. No pleural effusions or pneumothorax. Mediastinum: Mediastinal contours appear normal. Heart size is at the upper limits of normal. Bones and chest wall: No suspicious bony lesions. Overlying soft tissues appear unremarkable. IMPRESSION: 1. No acute cardiopulmonary disease. Dictated by: Jose Jean M.D. on 10/11/2018 at 10:57 Approved by: Jose Jean M.D. on 10/11/2018 at 10:58 MDM Narrative Medical decision making narrative: Multiple etiologies for patient's symptoms considered including: [orthostatic hypotension vs. arrhythmia vs. other] Patient's symptoms improved or duration of stay with above-stated therapies. Findings and discharge diagnosis discussed with patient/family followed by verbalization of understanding Return precautions discussed with patient/family whom verbalize understanding. Discharge Plan Departure Patient Disposition: Home Clinical Impression: Near syncope Discharge Date/Time: 10/11/18 12:11 Interventions: ED Discharge Assessment Last Done: 10/11/18 12:10 Instructions: DI for Syncope in Adults (Fainting) Activity Restrictions/Additional Instructions: *You have been diagnosed with [ near syncope, orthostatic hypotension ] *What to do: *Take medications as directed. Drink plenty of fluids *Follow up with your primary care provider in 2-3 days, call for an appointment. Let them know you were seen in the Emergency Department and that we ask that you be seen in follow up *Return to ER if you should have any new, worsening or concerning symptoms Prescriptions: No Action carvedilol [Coreg] 25 mg Tablet 25 mg PO BID Qty: 60 RF: 0 folic acid 1 mg Tablet 1 mg PO DAILY Qty: 30 RF: 0 losartan 50 mg Tablet 50 mg PO BID Qty: 60 RF: 0 metformin [Glucophage] 500 mg Tablet 500 mg PO 0800,1700 Qty: 60 RF: 0 hydrochlorothiazide 50 mg tablet 50 mg PO DAILY Qty: 30 RF: 0 nystatin 100,000 unit/gram Cream 1 applic topical PRN PRN (Reason: Rash) Qty: 1 RF: 0 chlordiazepoxide HCl 25 mg capsule 25 mg PO Q12H Qty: 2 RF: 0 Referrals: Alvaro Cho MD [Primary Care Provider] -
== END 2018-10-11 12:11 | disposition home or self-care (01) ==
PROVIDERS: Emergency Provider Emergency Medicine; PCP Family Medicine
DX: R55 Syncope and collapse (principal)
CPT/HCPCS: 36591; 71045; 80053; 81003; 82550; 82962; 83735; 84484; 85025; 93005; 93041; 96360; 99284; 99285

== ENCOUNTER 2018-10-23 18:11 | Emergency (ER) | payer SELFPAY ==
[2018-08-03 17:37] VITALS: BMI 33.0
[2018-10-23 18:24] VITALS: BP 151/85; PULSE 108; RESP 18; TEMP 37; O2SAT 96
--- NOTE | 2018-10-23 19:02 | ED_ITS ---
HPI - Psych General Chief Complaint: Psychiatric Symptoms Stated Complaint: SUICIDAL Time Seen by Provider: 10/23/18 18:49 Source: patient Mode of arrival: ambulatory Limitations: no limitations History of Present Illness HPI Narrative: Patient is a 63-year-old male who is a known alcoholic presenting voluntarily with suicidal ideations. He states that he no longer has any money would rather than be homeless. He lives on a boat currently. However he could no longer collect unemployment. He therefore just wants to drink and not wake up. He has been drinking for last 2 days. He has a history of suicidal attempts taking many pills but says it did not work because he is too big. He states he really does not want to but he does not want to wake up. He has no plan of killing himself, but he would rather be than homeless. At this time it is unclear if he will be able to keep his boat due to his current financial situation. MD complaint: suicidal ideation History of same: Yes Relieving factors: none Related Data Previous Rx's Medication Instructions Recorded carvedilol [Coreg] 25 mg PO BID #60 tab 08/06/18 folic acid 1 mg PO DAILY #30 tab 08/06/18 hydrochlorothiazide 50 mg PO DAILY #30 tab 08/06/18 losartan 50 mg PO BID #60 tab 08/06/18 metformin [Glucophage] 500 mg PO 0800,1700 #60 tab 08/06/18 nystatin 1 applic TOPICAL PRN PRN #1 tube 08/06/18 chlordiazepoxide HCl 25 mg PO Q12H #2 cap 08/07/18 Allergies Allergy/AdvReac Type Severity Reaction Status Date / Time No Known Drug Allergies Allergy Verified 10/23/18 18:54 Review of Systems Review of Systems ROS Unobtainable: All systems reviewed & are unremarkable except as noted in HPI and below Constitutional Denies chills, Denies fever(s), Denies lethargy and Denies weakness Eyes Denies change in vision, Denies eye discharge, Denies irritation and Denies loss of vision ENT Ears, Nose, Mouth, and Throat: Denies change in voice, Denies neck pain and Denies sore throat Cardiovascular Denies dyspnea and Denies dyspnea on exertion Respiratory Denies cough, Denies dyspnea, Denies dyspnea on exertion and Denies wheezing Gastrointestinal Gastrointestinal: Denies abdominal pain, Denies change in bowel habits, Denies diarrhea, Denies nausea and Denies vomiting Genitourinary Denies hematuria, Denies flank pain, Denies urinary incontinence and Denies urinary urgency Musculoskeletal Denies neck pain Integumentary/Breasts Denies pruritus, Denies erythema, Denies rash and Denies wounds Neurologic Denies loss of vision and Denies weakness Psychiatric Reports as per HPI Allergic/Immunologic Denies wheezing [facility] Medical History Amputated great toe of left foot (Acute) Diabetic neuropathy (Acute) Alcoholism /alcohol abuse (Acute) Hypertension (Acute) Diabetes (Acute) History of amputation of toe (Acute) Surgical History History of appendectomy (Acute) History of tonsillectomy (Acute) No history of previous surgery (Acute) Social History household members: none Smoking Status: Never smoker alcohol intake: current Social History household members: none Smoking Status: Never smoker alcohol intake: current Exam Initial Vital Signs Initial Vital Signs: Vital Signs Temperature 98.6 F 10/23/18 18:24 Pulse Rate 108 H 10/23/18 18:24 Respiratory Rate 18 10/23/18 18:24 Blood Pressure 151/85 H 10/23/18 18:24 Pulse Oximetry 96 10/23/18 18:24 GENERAL: Poor hygiene, slightly tearful questioning and in no acute distress. HEENT: Head atraumatic,EOMI, pupils reactive, CARDIOVASCULAR: Regular rate and rhythm without murmurs, rubs or gallops. RESPIRATORY: Breath sounds equal bilaterally, no wheezes rales or rhonchi. ABDOMEN: Soft, nontender. Normoactive bowel sounds all 4 quadrants. No guarding or rebound. : No CVA tenderness EXTREMITIES: Normal range of motion, no clubbing or edema. Neurovascularly intact NEUROLOGICAL: Alert and oriented x4.Normal gait and speech. Cranial nerves II through XII grossly intact. SKIN: Warm, dry, no laceration, no petechiae, no rashes or lesions. Course Orders Ordered: Discontinued Medications Diazepam (Valium) 5 mg PO NOW ONE Stop: 05/10/19 04:38 Last Admin: 10/24/18 04:41 Dose: 5 mg Vital Signs - 8 hr 10/24/18 01:15 Temperature 97.6 F Pulse Rate 100 H Respiratory Rate 18 Blood Pressure [Right Arm] 181/66 H Pulse Oximetry 98 MDM - Psych Lab Data Attestation: I reviewed the patient's lab results. Result diagrams: 10/23/18 19:28 10/23/18 19:28 Lab Results 10/23/18 10/23/18 10/23/18 Range/Units 19:28 19:28 19:28 WBC 9.8 (4.5-11.0) X10^3/uL RBC 4.38 L (4.5-5.9) X10^6/uL Hgb 15.3 (13.5-17.5) g/dL Hct 45.8 (41-53) % MCV 104.5 H (80-100) fL MCH 34.8 H (26-34) PG MCHC 33.3 (30-36) % RDW 14.2 (11.6-14.8) % Plt Count 216 (150-400) X10^3/uL Neut % (Auto) 68.5 (50-75) % Lymph % (Auto) 18.4 L (25-40) % Calhoun % (Auto) 11.1 (3-14) % Eos % (Auto) 1.1 L (2-4) % Baso % (Auto) 0.9 (0-2) % Neut # (Auto) 6700 (2187-3854) /uL Lymph # (Auto) 1800 (0745-2438) /uL Calhoun # (Auto) 1100 H (0-900) /uL Eos # (Auto) 100 (0-450) /uL Baso # (Auto) 100 (0-100) /uL Sodium 135 L (137-145) mmol/L Potassium 4.0 (3.4-5.1) mmol/L Chloride 99 (98-107) mmol/L Carbon Dioxide 20 L (22-32) mmol/L BUN 5 L (9-20) mg/dL Creatinine 0.60 L (0.66-1.25) mg/dL Estimated GFR > 60.0 (>60) mL/min BUN/Creatinine Ratio 8.3 (6-22) Glucose 184 H (80-110) mg/dL Calcium 8.0 L (8.4-10.2) mg/dL Total Bilirubin 1.1 (0.2-1.3) mg/dL AST 136 H (17-59) IU/L ALT 88 H (21-72) IU/L Alkaline Phosphatase 139 H (38-126) U/L Total Protein 7.2 (6.3-8.2) g/dL Albumin 3.8 (3.5-5.0) g/dL Globulin 3.4 (1.7-4.1) g/dL Albumin/Globulin Ratio 1.1 (1.0-2.8) TSH 2.48 (0.47-4.68) uIU/mL Free T4 1.19 (0.78-2.19) ng/dL Salicylates < 1.0 (<20) mg/dL Urine Opiates Screen (Negative) Ur Oxycodone Screen (Negative) Urine Methadone Screen (Negative) Acetaminophen < 10 L (10-30) ug/mL Ur Barbiturates Screen (Negative) U Tricyclic Antidepress (Negative) Ur Phencyclidine Scrn (Negative) Ur Amphetamines Screen (Negative) U Methamphetamines Scrn (Negative) Ur MDMA Scrn (Ecstasy) (Negative) U Benzodiazepines Scrn (Negative) Urine Cocaine Screen (Negative) U Marijuana (THC) Screen (Negative) Ethyl Alcohol 268 mg/dL 10/23/18 Range/Units 22:05 WBC (4.5-11.0) X10^3/uL RBC (4.5-5.9) X10^6/uL Hgb (13.5-17.5) g/dL Hct (41-53) % MCV (80-100) fL MCH (26-34) PG MCHC (30-36) % RDW (11.6-14.8) % Plt Count (150-400) X10^3/uL Neut % (Auto) (50-75) % Lymph % (Auto) (25-40) % Calhoun % (Auto) (3-14) % Eos % (Auto) (2-4) % Baso % (Auto) (0-2) % Neut # (Auto) (5746-1656) /uL Lymph # (Auto) (8330-1712) /uL Calhoun # (Auto) (0-900) /uL Eos # (Auto) (0-450) /uL Baso # (Auto) (0-100) /uL Sodium (137-145) mmol/L Potassium (3.4-5.1) mmol/L Chloride (98-107) mmol/L Carbon Dioxide (22-32) mmol/L BUN (9-20) mg/dL Creatinine (0.66-1.25) mg/dL Estimated GFR (>60) mL/min BUN/Creatinine Ratio (6-22) Glucose (80-110) mg/dL Calcium (8.4-10.2) mg/dL Total Bilirubin (0.2-1.3) mg/dL AST (17-59) IU/L ALT (21-72) IU/L Alkaline Phosphatase (38-126) U/L Total Protein (6.3-8.2) g/dL Albumin (3.5-5.0) g/dL Globulin (1.7-4.1) g/dL Albumin/Globulin Ratio (1.0-2.8) TSH (0.47-4.68) uIU/mL Free T4 (0.78-2.19) ng/dL Salicylates (<20) mg/dL Urine Opiates Screen Negative (Negative) Ur Oxycodone Screen Negative (Negative) Urine Methadone Screen Negative (Negative) Acetaminophen (10-30) ug/mL Ur Barbiturates Screen Negative (Negative) U Tricyclic Antidepress Negative (Negative) Ur Phencyclidine Scrn Negative (Negative) Ur Amphetamines Screen Negative (Negative) U Methamphetamines Scrn Negative (Negative) Ur MDMA Scrn (Ecstasy) Negative (Negative) U Benzodiazepines Scrn Negative (Negative) Urine Cocaine Screen Negative (Negative) U Marijuana (THC) Screen Negative (Negative) Ethyl Alcohol mg/dL MDM Narrative Medical decision making narrative: Patient monitored in the ED for over 8 hours. States he does not want to live but does not really want to he actually has no plan. Now he is quite fixated on getting his bank account information to a rehab facility in December and. He says he should have done yesterday he made some poor choices. He 100% has to get that done today or he can't get in. He does not want to go back to [facility]. He was just given some Valium for some anxiety. the patient wall E breakfast. He is adamant that he has to drive his because he needs his car, to get around today. Will wait until patient is appropriate to drive. Patient no longer meeting any sort of involuntary criteria Discharge Plan Departure Patient Disposition: Home Clinical Impression: Alcoholism /alcohol abuse Hypertension Qualifiers: Hypertension type: essential hypertension Qualified Code(s): I10 - Essential (primary) hypertension Discharge Date/Time: 10/24/18 08:53 Interventions: ED Discharge Assessment Last Done: 10/24/18 08:53 Instructions: DI for Suicidal Ideation-Adult Activity Restrictions/Additional Instructions: *You have been diagnosed with alcohol intoxication *What to do: If you are feeling suicidal or having suicidal thoughts: Call: Suicide Hotline: Visit: www.[employer] Text: 905803 *Continue to take medications as directed *Follow up with your primary care provider in 2-3 days *Return to ER if you should have any new, worsening or concerning symptoms Prescriptions: No Action carvedilol [Coreg] 25 mg Tablet 25 mg PO BID Qty: 60 RF: 0 folic acid 1 mg Tablet 1 mg PO DAILY Qty: 30 RF: 0 losartan 50 mg Tablet 50 mg PO BID Qty: 60 RF: 0 metformin [Glucophage] 500 mg Tablet 500 mg PO 0800,1700 Qty: 60 RF: 0 hydrochlorothiazide 50 mg tablet 50 mg PO DAILY Qty: 30 RF: 0 nystatin 100,000 unit/gram Cream 1 applic topical PRN PRN (Reason: Rash) Qty: 1 RF: 0 chlordiazepoxide HCl 25 mg capsule 25 mg PO Q12H Qty: 2 RF: 0 Referrals: Alvaro Cho MD [Primary Care Provider] -
[2018-10-23 19:36] LABS: Add Manual Diff / Slide Review NO; Basophils Absolute Auto 100 /uL (0-100); Basophils Percent Auto 0.9 % (0-2); Eosinophils Absolute Auto 100 /uL (0-450); Eosinophils Percent Auto 1.1 % (2-4); Hematocrit 45.8 % (41-53); Hemoglobin 15.3 g/dL (13.5-17.5); Lymphocytes Absolute Auto 1800 /uL (1100-4500); Lymphocytes Percent Auto 18.4 % (25-40); Mean Corpuscular HGB Conc 33.3 % (30-36); Mean Corpuscular Hemoglobin 34.8 PG (26-34); Mean Corpuscular Volume 104.5 fL (80-100); Monocytes Absolute Auto 1100 /uL (0-900); Monocytes Percent Auto 11.1 % (3-14); Neutrophils Absolute Auto 6700 /uL (1500-7000); Neutrophils Percent Auto 68.5 % (50-75); Platelet Count 216 X10^3/uL (150-400); Red Blood Cell Count 4.38 X10^6/uL (4.5-5.9); Red Cell Distribution Width 14.2 % (11.6-14.8); White Blood Cell Count 9.8 X10^3/uL (4.5-11.0)
[2018-10-23 20:04] LABS: Acetaminophen < 10 ug/mL (10-30); Alanine Aminotransferase 88 IU/L (21-72); Albumin 3.8 g/dL (3.5-5.0); Albumin Globulin Ratio 1.1 (1.0-2.8); Alkaline Phosphatase 139 U/L (38-126); Aspartate Aminotransferase 136 IU/L (17-59); BUN Creatinine Ratio 8.3 (6-22); Bilirubin Total 1.1 mg/dL (0.2-1.3); Blood Urea Nitrogen 5 mg/dL (9-20); Carbon Dioxide 20 mmol/L (22-32); Chloride 99 mmol/L (98-107); Estimated Glomerular Filt Rate > 60.0 mL/min (>60); Ethanol (ETOH) 268 mg/dL; Globulin 3.4 g/dL (1.7-4.1); Glucose 184 mg/dL (80-110); HEMOLYSIS < 15 (0-50); Salicylate < 1.0 mg/dL (<20); Sodium 135 mmol/L (137-145); Total Protein 7.2 g/dL (6.3-8.2)
--- NOTE | 2018-10-23 20:13 | PC.NURSE ---
Assumed care of this patient at this time. Pt mattress on the floor in room. Pt is resting, respirations even and unlabored. Pt appears in no acute distress,
[2018-10-23 20:30] LABS: Free T4, Direct Thyroxine 1.19 ng/dL (0.78-2.19)
[2018-10-23 20:44] LABS: Thyroid Stimulating Hormone 2.48 uIU/mL (0.47-4.68)
--- NOTE | 2018-10-23 22:00 | PC.NURSE ---
pt remains asleep. Respirations even and unlabored. Pt in no acute distress.
--- NOTE | 2018-10-23 23:28 | PC.NURSE ---
peeing on floor. Offered urinal. Pt swearing at me. Informed that I will get him food and get him more comfortable.
--- NOTE | 2018-10-23 23:35 | PC.NURSE ---
As of 1099 [employer] sitter at bedside.
--- NOTE | 2018-10-24 01:13 | PC.NURSE ---
Provided pt with urinal, Pt requests ice cream and TV. Pt provided with chocolate ice cream and informed that we don't have Tv in ED. Pt is calm and cooperative at this time. States he is just depressed and still has thought of harming himself.
[2018-10-24 01:15] VITALS: BP 181/66; PULSE 100; RESP 18; TEMP 36.4; O2SAT 98
[2018-10-24 01:31] LABS: Urine Amphetamines Negative (Negative); Urine Barbiturates Negative (Negative); Urine Benzodiazepines Negative (Negative); Urine Cocaine Negative (Negative); Urine MDMA Negative (Negative); Urine Methadone Negative (Negative); Urine Methamphetamines Negative (Negative); Urine Morphine/Opi cutoff 2000 Negative (Negative); Urine Oxycodone Negative (Negative); Urine Phencyclidine Negative (Negative); Urine Tetrahydrocannabinol Negative (Negative); Urine Tricyclic Antidepressant Negative (Negative)
[2018-10-24] MEDS: diazePAM 5 MG TABLET PO (04:41)
[2018-10-24 05:43] VITALS: BP 192/98; PULSE 110; RESP 18; TEMP 37.1; O2SAT 99
--- NOTE | 2018-10-24 07:24 | PC.NURSE ---
pt. report from [facility]. Pt. awaiting breakfast tray and is currently chatting on the cell phone without evidence of agitation. Awaiting [facility] to open before discharging patient from ED to reduce risk of ETOH consumption.
[2018-10-24 08:20] VITALS: BP 206/108; PULSE 111; RESP 18; O2SAT 97
== END 2018-10-24 08:53 | disposition home or self-care (01) ==
PROVIDERS: Emergency Provider Emergency Medicine; PCP Family Medicine
DX: F10.20 Alcohol dependence, uncomplicated (principal); R45.851 Suicidal ideations; I10 Essential (primary) hypertension
CPT/HCPCS: 36415; 80053; 80305; 80320; 80329; 84439; 84443; 85025; 99284; 99285; G0480

== ENCOUNTER 2018-10-26 18:59 | Emergency (ER) | payer SELFPAY ==
[2018-08-03 17:37] VITALS: BMI 33.0
[2018-10-26 19:05] VITALS: BMI 33.3
--- NOTE | 2018-10-26 19:08 | DI.CT.S_ITS ---
PROCEDURE: CT HEAD/BRAIN WO CON INDICATIONS: glf, etoh TECHNIQUE: Noncontrast 4.5 mm thick angled axial sections acquired from the foramen magnum to the vertex, with coronal and sagittal reformats. For radiation dose reduction, the following was used: automated exposure control, adjustment of mA and/or kV according to patient size. COMPARISON: None. FINDINGS: Image quality: Excellent. CSF spaces: Basal cisterns are patent. No extra-axial fluid collections. Ventricles are normal in size and shape. Brain: No midline shift. No intracranial masses or hemorrhage. Cabello-white matter interface is normal. Skull and face: Calvarium and visualized facial bones are intact, without suspicious lesions. Sinuses: Visualized sinuses and mastoids are clear. IMPRESSION: 1. No acute intracranial findings. Dictated by: Lory Moore M.D. on 10/26/2018 at 20:55 Approved by: Lory Moore M.D. on 10/26/2018 at 20:57
[2018-10-26 19:12] VITALS: BP 165/78; PULSE 93; RESP 18; TEMP 36.6; O2SAT 95
--- NOTE | 2018-10-26 19:19 | ED.ALCOHOL ---
HPI - Alcohol <LOKESH Whittington-BC - Last Filed: 10/26/18 22:12> General Chief Complaint: Toxicology Problem Stated Complaint: ETOH Time Seen by Provider: 10/26/18 19:00 Source: patient and EMS Mode of arrival: EMS Limitations: no limitations History of Present Illness HPI narrative: The patient is a 63-year-old male nonsmoker with history of alcoholism and diabetes who presents with a chief complaint of drinking too much and having a ground level fall. The patient is well known to this department and was at this facility 2 days ago with alcoholism and suicidal ideations. Today he was drinking while watching a movie at the [employer] theater. When he was asked to leave, he fell and hit his head. No loss of consciousness. The patient states he was drinking for fun and wanted to see that movie. per EMS he has an abrasion to his forehead as well as his left elbow. Patient states he does not hurt himself or anybody else. He states he does not want to go to detox. Related Data Previous Rx's Medication Instructions Recorded carvedilol [Coreg] 25 mg PO BID #60 tab 08/06/18 folic acid 1 mg PO DAILY #30 tab 08/06/18 hydrochlorothiazide 50 mg PO DAILY #30 tab 08/06/18 losartan 50 mg PO BID #60 tab 08/06/18 metformin [Glucophage] 500 mg PO 0800,1700 #60 tab 08/06/18 nystatin 1 applic TOPICAL PRN PRN #1 tube 08/06/18 chlordiazepoxide HCl 25 mg PO Q12H #2 cap 08/07/18 Allergies Allergy/AdvReac Type Severity Reaction Status Date / Time No Known Drug Allergies Allergy Verified 10/26/18 19:11 Review of Systems <LOKESH Whittington-BC - Last Filed: 10/26/18 22:12> Review of Systems GENERAL: Denies chills, fatigue, malaise, fever, sweats. HEENT: See HPI RESPIRATORY: Denies dyspnea, cough, wheezing, hemoptysis, sputum. CARDIOVASCULAR: Denies chest pain, palpitations, orthopnea, edema, GASTROINTESTINAL: Denies nausea, vomiting, abdominal pain, diarrhea, constipation, melena. : Denies dysuria, frequency, incontinence, hematuria, urinary retention. MUSCULOSKELETAL: denies weakness, joint pain, or bony pain SKIN see HPI NEUROLOGIC: Denies weakness, headache, numbness, change in speech, confusion, seizures, incoordination. PSYCHIATRIC: See HPI 12 point review of systems is negative except for those stated above PFSH <MARTHA Whittington - Last Filed: 10/26/18 22:12> Medical History Amputated great toe of left foot (Acute) Diabetic neuropathy (Acute) Alcoholism /alcohol abuse (Acute) Hypertension (Acute) Diabetes (Acute) History of amputation of toe (Acute) Surgical History History of appendectomy (Acute) History of tonsillectomy (Acute) No history of previous surgery (Acute) Social History household members: none Smoking Status: Never smoker alcohol intake: current Social History household members: none Smoking Status: Never smoker alcohol intake: current Exam <MARTHA Whittington - Last Filed: 10/26/18 22:12> Narrative Exam Narrative: GENERAL: unkempt elderly male smells of alcohol and urine HEAD: Atraumatic. Normocephalic. No temporal or scalp tenderness. Small abrasion noted lateral to left eye. EYES: Pupils equal round and reactive. Extraocular motions intact. No scleral icterus. No injection or drainage. ENT: Nose without bleeding, purulent drainage or septal hematoma. Throat without erythema, tonsillar hypertrophy or exudate. Uvula midline. Airway patent. NECK: Trachea midline. No JVD or lymphadenopathy. Supple, nontender, no meningeal signs. CARDIOVASCULAR: Regular rate and rhythm RESPIRATORY: Clear to auscultation. Breath sounds equal bilaterally. No wheezes, rales, or rhonchi. No cough. No increased respiratory effort. No accessory muscle use. No stridor. GASTROINTESTINAL: Abdomen soft, non-tender, nondistended. No hepato-splenomegaly, or palpable masses. No guarding. Active bowel sounds BACK: Nontender without deformity or crepitance. No flank tenderness. NEURO: AOx3. SKIN: 0.25 cm abrasion lateral to left eye. 2 cm laceration through dermis left elbow. Linear. No obvious foreign body. No evidence of muscle or tendon involvement Initial Vital Signs Initial Vital Signs: Vital Signs Temperature 98 F 10/26/18 19:12 Pulse Rate 93 H 10/26/18 19:12 Respiratory Rate 18 10/26/18 19:12 Blood Pressure 165/78 H 10/26/18 19:12 Pulse Oximetry 95 10/26/18 19:12 <Desean Hahn DO - Last Filed: 10/27/18 05:46> Initial Vital Signs Initial Vital Signs: Vital Signs Temperature 98 F 10/26/18 19:12 Pulse Rate 93 H 10/26/18 19:12 Respiratory Rate 18 10/26/18 19:12 Blood Pressure 165/78 H 10/26/18 19:12 Pulse Oximetry 95 10/26/18 19:12 Course <MARTHA Whittington - Last Filed: 10/26/18 22:12> Orders Ordered: Acetaminophen (Tylenol) 650 mg PO Q4HR PRN PRN Reason: As Needed for Fever/Mild Pain Last Admin: 10/27/18 03:10 Dose: 650 mg Discontinued Medications Diphtheria/Tetanus/Acell Pertussis (Adacel) 0.5 ml IM .ONCE ONE Stop: 10/26/18 19:14 Last Admin: 10/27/18 03:09 Dose: 0.5 ml Vital Signs - 8 hr 10/27/18 02:45 Pulse Rate 90 Respiratory Rate 16 Blood Pressure [Left Arm] 165/82 H Pulse Oximetry 97 <DO Jc Cruz Last Filed: 10/27/18 05:46> Orders Ordered: Acetaminophen (Tylenol) 650 mg PO Q4HR PRN PRN Reason: As Needed for Fever/Mild Pain Last Admin: 10/27/18 03:10 Dose: 650 mg Discontinued Medications Diphtheria/Tetanus/Acell Pertussis (Adacel) 0.5 ml IM .ONCE ONE Stop: 10/26/18 19:14 Last Admin: 10/27/18 03:09 Dose: 0.5 ml Vital Signs - 8 hr 10/27/18 02:45 Pulse Rate 90 Respiratory Rate 16 Blood Pressure [Left Arm] 165/82 H Pulse Oximetry 97 MDM - Alcohol <MARTHA Whittington - Last Filed: 10/26/18 22:12> Lab Data Labs: Point of Care Testing Glucose POC [address] scan - head: Radiologist's impression: [address] [address] [address] Scan Report Signed Patient: Nathan Crow JMR#: [id number] : 3Acct:[id number] Age/Sex: 63 / MDate of Service: 10/26/18 Loc: ED Accession Number: [id number] Procedure: CT head/brain wo con Ordering Provider: Mari HuffP-BC PROCEDURE: CT HEAD/BRAIN WO CON INDICATIONS: glf, etoh TECHNIQUE: Noncontrast 4.5 mm thick angled axial sections acquired from the foramen magnum to the vertex, with coronal and sagittal reformats. For radiation dose reduction, the following was used: automated exposure control, adjustment of mA and/or kV according to patient size. COMPARISON: None. FINDINGS: Image quality: Excellent. CSF spaces: Basal cisterns are patent. No extra-axial fluid collections. Ventricles are normal in size and shape. Brain: No midline shift. No intracranial masses or hemorrhage. Cabello-white matter interface is normal. Skull and face: Calvarium and visualized facial bones are intact, without suspicious lesions. Sinuses: Visualized sinuses and mastoids are clear. IMPRESSION: 1. No acute intracranial findings. Dictated by: Lory Moore M.D. on 10/26/2018 at 20:55 Approved by: Lory Moore M.D. on 10/26/2018 at 20:57 [facility] Narrative Medical decision making narrative: The patient is a 63-year-old male who presents with a chief complaint of alcohol intoxication. He is responsive, GCS 15. I did get a head CT as he was witnessed hitting his head on a carpeted floor which was negative. He did not want to hurt himself or anybody else. He states he does not want to go to detox. Thus the patient was provided a safe place to sober up. He does have lacerations, but declines any closure mechanisms. The patient remained hemodynamically stable. Given that the patient does not have any SI HI or desire to go to detox, I did not obtain psych labs. His blood sugar was taken as he is diabetic. The patient signed out to Dr. Hahn at 10:15 p.m. <Desean Hahn DO - Last Filed: 10/27/18 05:46> Lab Data Labs: Point of Care Testing Glucose POC 241 Discharge Plan Departure Patient Disposition: Home Clinical Impression: Alcoholism /alcohol abuse, Alcoholic intoxication Instructions: DI for Alcohol Abuse Activity Restrictions/Additional Instructions: Please stop drinking so much alcohol. Please follow up with primary care provider. Please come back to the emergency department if you drink a dangerous amount of alcohol, have thoughts about hurting herself or anybody else. No driving for the next 24 hours or in the future if you partake in intoxicating substances. Prescriptions: No Action carvedilol [Coreg] 25 mg Tablet 25 mg PO BID Qty: 60 RF: 0 folic acid 1 mg Tablet 1 mg PO DAILY Qty: 30 RF: 0 losartan 50 mg Tablet 50 mg PO BID Qty: 60 RF: 0 metformin [Glucophage] 500 mg Tablet 500 mg PO 0800,1700 Qty: 60 RF: 0 hydrochlorothiazide 50 mg tablet 50 mg PO DAILY Qty: 30 RF: 0 nystatin 100,000 unit/gram Cream 1 applic topical PRN PRN (Reason: Rash) Qty: 1 RF: 0 chlordiazepoxide HCl 25 mg capsule 25 mg PO Q12H Qty: 2 RF: 0 Referrals: Alvaro Cho MD [Primary Care Provider] - <Desean Hahn DO - Last Filed: 10/27/18 05:46> Cosign ED Attending Cosignature Attestation: Received turned over from day provider. Review patient's history and physical. Perform my own evaluation. Patient remained calm in the emergency department throughout the evening. By the time he was clinically sober the cabs were not running and patient did not have a ride home. He stated he had no and call so he stated the emergency department. In the morning patient was alert and oriented. Was clinically sober. Was not suicidal homicidal. Will discharge home.
--- NOTE | 2018-10-26 19:21 | PC.NURSE ---
Patient requested a urinal be placed by his bedside
--- NOTE | 2018-10-26 19:22 | ED_ITS ---
HPI - Alcohol <LOKESH Whittington-BC - Last Filed: 10/26/18 22:12> General Chief Complaint: Toxicology Problem Stated Complaint: ETOH Time Seen by Provider: 10/26/18 19:00 Source: patient and EMS Mode of arrival: EMS Limitations: no limitations History of Present Illness HPI narrative: The patient is a 63-year-old male nonsmoker with history of alcoholism and diabetes who presents with a chief complaint of drinking too much and having a ground level fall. The patient is well known to this department and was at this facility 2 days ago with alcoholism and suicidal ideations. Today he was drinking while watching a movie at the [employer] theater. When he was asked to leave, he fell and hit his head. No loss of consciousness. The patient states he was drinking for fun and wanted to see that movie. per EMS he has an abrasion to his forehead as well as his left elbow. Patient states he does not hurt himself or anybody else. He states he does not want to go to detox. Related Data Previous Rx's Medication Instructions Recorded carvedilol [Coreg] 25 mg PO BID #60 tab 08/06/18 folic acid 1 mg PO DAILY #30 tab 08/06/18 hydrochlorothiazide 50 mg PO DAILY #30 tab 08/06/18 losartan 50 mg PO BID #60 tab 08/06/18 metformin [Glucophage] 500 mg PO 0800,1700 #60 tab 08/06/18 nystatin 1 applic TOPICAL PRN PRN #1 tube 08/06/18 chlordiazepoxide HCl 25 mg PO Q12H #2 cap 08/07/18 Allergies Allergy/AdvReac Type Severity Reaction Status Date / Time No Known Drug Allergies Allergy Verified 10/26/18 19:11 Review of Systems <LOKESH Whittington-BC - Last Filed: 10/26/18 22:12> Review of Systems GENERAL: Denies chills, fatigue, malaise, fever, sweats. HEENT: See HPI RESPIRATORY: Denies dyspnea, cough, wheezing, hemoptysis, sputum. CARDIOVASCULAR: Denies chest pain, palpitations, orthopnea, edema, GASTROINTESTINAL: Denies nausea, vomiting, abdominal pain, diarrhea, constipation, melena. : Denies dysuria, frequency, incontinence, hematuria, urinary retention. MUSCULOSKELETAL: denies weakness, joint pain, or bony pain SKIN see HPI NEUROLOGIC: Denies weakness, headache, numbness, change in speech, confusion, seizures, incoordination. PSYCHIATRIC: See HPI 12 point review of systems is negative except for those stated above PFSH <MARTHA Whittington - Last Filed: 10/26/18 22:12> Medical History Amputated great toe of left foot (Acute) Diabetic neuropathy (Acute) Alcoholism /alcohol abuse (Acute) Hypertension (Acute) Diabetes (Acute) History of amputation of toe (Acute) Surgical History History of appendectomy (Acute) History of tonsillectomy (Acute) No history of previous surgery (Acute) Social History household members: none Smoking Status: Never smoker alcohol intake: current Social History household members: none Smoking Status: Never smoker alcohol intake: current Exam <MARTHA Whittington - Last Filed: 10/26/18 22:12> Narrative Exam Narrative: GENERAL: unkempt elderly male smells of alcohol and urine HEAD: Atraumatic. Normocephalic. No temporal or scalp tenderness. Small abrasion noted lateral to left eye. EYES: Pupils equal round and reactive. Extraocular motions intact. No scleral icterus. No injection or drainage. ENT: Nose without bleeding, purulent drainage or septal hematoma. Throat without erythema, tonsillar hypertrophy or exudate. Uvula midline. Airway patent. NECK: Trachea midline. No JVD or lymphadenopathy. Supple, nontender, no meningeal signs. CARDIOVASCULAR: Regular rate and rhythm RESPIRATORY: Clear to auscultation. Breath sounds equal bilaterally. No wheezes, rales, or rhonchi. No cough. No increased respiratory effort. No accessory muscle use. No stridor. GASTROINTESTINAL: Abdomen soft, non-tender, nondistended. No hepato- splenomegaly, or palpable masses. No guarding. Active bowel sounds BACK: Nontender without deformity or crepitance. No flank tenderness. NEURO: AOx3. SKIN: 0.25 cm abrasion lateral to left eye. 2 cm laceration through dermis left elbow. Linear. No obvious foreign body. No evidence of muscle or tendon involvement Initial Vital Signs Initial Vital Signs: Vital Signs Temperature 98 F 10/26/18 19:12 Pulse Rate 93 H 10/26/18 19:12 Respiratory Rate 18 10/26/18 19:12 Blood Pressure 165/78 H 10/26/18 19:12 Pulse Oximetry 95 10/26/18 19:12 <Desean Hahn DO - Last Filed: 10/27/18 05:46> Initial Vital Signs Initial Vital Signs: Vital Signs Temperature 98 F 10/26/18 19:12 Pulse Rate 93 H 10/26/18 19:12 Respiratory Rate 18 10/26/18 19:12 Blood Pressure 165/78 H 10/26/18 19:12 Pulse Oximetry 95 10/26/18 19:12 Course <MARTHA Whittington - Last Filed: 10/26/18 22:12> Orders Ordered: Acetaminophen (Tylenol) 650 mg PO Q4HR PRN PRN Reason: As Needed for Fever/Mild Pain Last Admin: 10/27/18 03:10 Dose: 650 mg Discontinued Medications Diphtheria/Tetanus/Acell Pertussis (Adacel) 0.5 ml IM .ONCE ONE Stop: 10/26/18 19:14 Last Admin: 10/27/18 03:09 Dose: 0.5 ml Vital Signs - 8 hr 10/27/18 02:45 Pulse Rate 90 Respiratory Rate 16 Blood Pressure [Left Arm] 165/82 H Pulse Oximetry 97 <DO Jc Cruz Last Filed: 10/27/18 05:46> Orders Ordered: Acetaminophen (Tylenol) 650 mg PO Q4HR PRN PRN Reason: As Needed for Fever/Mild Pain Last Admin: 10/27/18 03:10 Dose: 650 mg Discontinued Medications Diphtheria/Tetanus/Acell Pertussis (Adacel) 0.5 ml IM .ONCE ONE Stop: 10/26/18 19:14 Last Admin: 10/27/18 03:09 Dose: 0.5 ml Vital Signs - 8 hr 10/27/18 02:45 Pulse Rate 90 Respiratory Rate 16 Blood Pressure [Left Arm] 165/82 H Pulse Oximetry 97 MDM - Alcohol <MARTHA Whittington - Last Filed: 10/26/18 22:12> Lab Data Labs: Point of Care Testing Glucose POC [address] scan - head: Radiologist's impression: [address] [address] [address] Scan Report Signed Patient: Nathan Crow JMR#: [id number] : 3Acct:[id number] Age/Sex: 63 / MDate of Service: 10/26/18 Loc: ED Accession Number: [id number] Procedure: CT head/brain wo con Ordering Provider: Mari HuffP-BC PROCEDURE: CT HEAD/BRAIN WO CON INDICATIONS: glf, etoh TECHNIQUE: Noncontrast 4.5 mm thick angled axial sections acquired from the foramen magnum to the vertex, with coronal and sagittal reformats. For radiation dose reduction, the following was used: automated exposure control, adjustment of mA and/or kV according to patient size. COMPARISON: None. FINDINGS: Image quality: Excellent. CSF spaces: Basal cisterns are patent. No extra-axial fluid collections. Ventricles are normal in size and shape. Brain: No midline shift. No intracranial masses or hemorrhage. [place]-white matter interface is normal. Skull and face: Calvarium and visualized facial bones are intact, without suspicious lesions. Sinuses: Visualized sinuses and mastoids are clear. IMPRESSION: 1. No acute intracranial findings. Dictated by: Lory Moore M.D. on 10/26/2018 at 20:55 Approved by: Lory Moore M.D. on 10/26/2018 at 20:57 [facility] Narrative Medical decision making narrative: The patient is a 63-year-old male who presents with a chief complaint of alcohol intoxication. He is responsive, GCS 15. I did get a head CT as he was witnessed hitting his head on a carpeted floor which was negative. He did not want to hurt himself or anybody else. He states he does not want to go to detox. Thus the patient was provided a safe place to sober up. He does have lacerations, but declines any closure mechanisms. The patient remained hemodynamically stable. Given that the patient does not have any SI HI or desire to go to detox, I did not obtain psych labs. His blood sugar was taken as he is diabetic. The patient signed out to Dr. Hahn at 10:15 p.m. <Desean Hahn DO - Last Filed: 10/27/18 05:46> Lab Data Labs: Point of Care Testing Glucose POC 241 Discharge Plan Departure Patient Disposition: Home Clinical Impression: Alcoholism /alcohol abuse, Alcoholic intoxication Instructions: DI for Alcohol Abuse Activity Restrictions/Additional Instructions: Please stop drinking so much alcohol. Please follow up with primary care provider. Please come back to the emergency department if you drink a dangerous amount of alcohol, have thoughts about hurting herself or anybody else. No driving for the next 24 hours or in the future if you partake in intoxicating substances. Prescriptions: No Action carvedilol [Coreg] 25 mg Tablet 25 mg PO BID Qty: 60 RF: 0 folic acid 1 mg Tablet 1 mg PO DAILY Qty: 30 RF: 0 losartan 50 mg Tablet 50 mg PO BID Qty: 60 RF: 0 metformin [Glucophage] 500 mg Tablet 500 mg PO 0800,1700 Qty: 60 RF: 0 hydrochlorothiazide 50 mg tablet 50 mg PO DAILY Qty: 30 RF: 0 nystatin 100,000 unit/gram Cream 1 applic topical PRN PRN (Reason: Rash) Qty: 1 RF: 0 chlordiazepoxide HCl 25 mg capsule 25 mg PO Q12H Qty: 2 RF: 0 Referrals: Alvaro Cho MD [Primary Care Provider] - <Desean Hahn DO - Last Filed: 10/27/18 05:46> Cosign ED Attending Cosignature Attestation: Received turned over from day provider. Review patient's history and physical. Perform my own evaluation. Patient re mained calm in the emergency department throughout the evening. By the time he was clinically sober the cabs were not running and patient did not have a ride home. He stated he had no and call so he stated the emergency department. In the morning patient was alert and oriented. Was clinically sober. Was not suicidal homicidal. Will discharge home.
--- NOTE | 2018-10-26 21:57 | PC.NURSE ---
Pt is sleeping, will give tetanus when awake
[2018-10-27 02:45] VITALS: BP 165/82; PULSE 90; RESP 16; O2SAT 97
[2018-10-27] MEDS: TET,DIPH,PERTUSS(ACELL),VAC/PF 0.5 ML SYRINGE IM (03:09)
[2018-10-27] MEDS: ACETAMINOPHEN 325 MG TABLET 650 MG PO (03:10)
--- NOTE | 2018-10-27 03:23 | PC.NURSE ---
patient called and requested to use the urinal. patient soaked in urine and offered paper scrubs. patient denied. I cleaned patients bed and changed sheets. patient stated he had a headache. provider notified and ordered 650mg of Tylenol. patient given water. provider okayed for patient to have water and no new orders at this time.
[2018-10-27 06:02] VITALS: BP 193/113; PULSE 98; RESP 16; O2SAT 98
== END 2018-10-27 06:02 | disposition home or self-care (01) ==
PROVIDERS: Emergency Provider Nurse Practitioner Family; PCP Family Medicine
DX: F10.929 Alcohol use, unspecified with intoxication, unspecified (principal); S09.90XA Unspecified injury of head, initial encounter; S50.312A Abrasion of left elbow, initial encounter; W18.30XA Fall on same level, unspecified, initial encounter; Z23 Encounter for immunization
CPT/HCPCS: 70450; 82962; 90471; 99282; 99284; 90715

== ENCOUNTER 2018-12-14 12:08 | Emergency (ER) | payer SELFPAY ==
[2018-08-03 17:37] VITALS: BMI 33.0
[2018-12-14 12:30] VITALS: BP 138/60; PULSE 68; RESP 20; TEMP 36.6; O2SAT 97; BMI 34.9
--- NOTE | 2018-12-14 13:00 | ED_ITS ---
HPI - Extremity Problem <VAISHNAVI Benitez - Last Filed: 12/14/18 19:03> General Chief complaint: Extremity Problem,Nontraumatic Stated complaint: staph infection both ankles x7 days Time Seen by Provider: 12/14/18 12:47 Source: patient Mode of arrival: ambulatory Limitations: no limitations History of Present Illness HPI Narrative: 63-year-old male with a history of alcoholism, diabetes, and diabetic neuropathy with amputations, presents emergency department today after seeing his primary care provider on being diagnosed with a lower leg staffed infection, he was prescribed an antibiotic by 1 to pick it up yesterday and learned that was 3000 dollars because he does not have insurance. Patient then presented to the emergency department to see if he can get an alternative as office is not open as this time. He states that the rash is painful but has not spread or gotten worse. Denies fevers, chest pain, chills, nausea, vomiting, increased fatigue, discharge from the rash or his wound on his left toe which has been for some time, or swelling in his legs. Related Data Previous Rx's Medication Instructions Recorded carvedilol [Coreg] 25 mg PO BID #60 tab 08/06/18 folic acid 1 mg PO DAILY #30 tab 08/06/18 hydrochlorothiazide 50 mg PO DAILY #30 tab 08/06/18 losartan 50 mg PO BID #60 tab 08/06/18 metformin [Glucophage] 500 mg PO 0800,1700 #60 tab 08/06/18 nystatin 1 applic TOPICAL PRN PRN #1 tube 08/06/18 chlordiazepoxide HCl 25 mg PO Q12H #2 cap 08/07/18 clindamycin HCl 450 mg PO TID 7 Days #31.5 cap 12/14/18 Allergies Allergy/AdvReac Type Severity Reaction Status Date / Time No Known Drug Allergies Allergy Verified 12/14/18 12:55 Review of Systems <VAISHNAVI Benitez - Last Filed: 12/14/18 19:03> Review of Systems REVIEW OF SYSTEMS: GENERAL: Denies fever or chills. HENT: No head trauma. EYES: No loss of vision, double vision, eye pain, or irritation. CARDIOVASCULAR: No chest pain or syncope. RESPIRATORY: No shortness of breath or cough. GASTROINTESTINAL: No nausea, vomiting, diarrhea, or constipation. GENITOURINARY: No flank pain or dysuria. MUSCULOSKELETAL: No pain, weakness, or deformities. INTEGUMENTARY: Complains of bilateral lower leg, as well as wound to left foot, see HPI. NEURO: No numbness, tingling, memory loss, or confusion. PSYCH: No behavior or mood changes. PFSH <VAISHNAVI Benitez - Last Filed: 12/14/18 19:03> Medical History Amputated great toe of left foot (Acute) Diabetic neuropathy (Acute) Alcoholism /alcohol abuse (Acute) Hypertension (Acute) Diabetes (Acute) History of amputation of toe (Acute) Surgical History History of appendectomy (Acute) History of tonsillectomy (Acute) No history of previous surgery (Acute) Social History household members: none Smoking Status: Never smoker alcohol intake: current Social History household members: none Smoking Status: Never smoker alcohol intake: current Exam <VAISHNAVI Benitez - Last Filed: 12/14/18 19:03> Initial Vital Signs Initial Vital Signs: Vital Signs Temperature 97.9 F 12/14/18 12:30 Pulse Rate 68 12/14/18 12:30 Respiratory Rate 20 12/14/18 12:30 Blood Pressure 138/60 12/14/18 12:30 Pulse Oximetry 97 12/14/18 12:30 PHYSICAL EXAMINATION: GENERAL: Poorly groomed,, alert, and cooperative. Answers questions promptly and appropriately. Vital signs noted. HENT: Normocephalic, atraumatic. EYES: Conjunctiva pink, sclera white, no periorbital swelling. CARDIOVASCULAR: S1 and S2 sounds normal. Regular rate and rhythm, no murmurs, clicks, or bruits. No pedal edema. RESPIRATORY: Normal respiratory rate, trachea midline, airway patent. No stridor, nasal flaring or accessory muscle use. Lungs are clear in all miles without wheeze, rhonchi, or crackles. MUSCULOSKELETAL: Normal gait and coordination. Equal tone and mass bilaterally. Multiple older toe amputations to left foot. EXTREMITIES: CMS intact. Moves all extremities. SKIN: Warm, dry, soft, appropriate color for ethnicity. 8 cm by 8 cm erythematous area to lower right leg, slightly increase in temperature. 6 x 8 cm erythematous area to her left lower leg. 2 cm x 2 cm wound noted on the bottom of the foot at the 1st phalangeal metacarpal joint. No exudate from wound, wound bed is pink and wound edges are well approximated. Findings are consistent with lower leg cellulitis. Increased brown bronchitis and possibly due to from the disease, small amount of lower leg edema he notes that is nonpitting. NEURO: Alert and Oriented X 3. Good coordination. No ataxia, or sensory deficits, or cognitive issues. PSYCH: Appropriate affect and mood. <Elizabeth Baumann DO - Last Filed: 12/17/18 07:19> Initial Vital Signs Initial Vital Signs: Vital Signs Temperature 97.9 F 12/14/18 12:30 Pulse Rate 68 12/14/18 12:30 Respiratory Rate 20 12/14/18 12:30 Blood Pressure 138/60 12/14/18 12:30 Pulse Oximetry 97 12/14/18 12:30 Course <VAISHNAVI Benitez - Last Filed: 12/14/18 19:03> Course Narrative: Spoke with patient about previous diagnosis of a staph infection, call the [facility] pharmacy and was told patient was prescribed linezoid, however he was not able to afford this. Discussed with patient that I am unable to access his records at this time as it is the weekend, detailed conversation about how his doctor may have cultured the wound and that linezoid may be the most appropriate antibiotic. However prescribed have prescribed him a more affordable antibiotic that will cover staph infections as well as MRSA. Patient states he was given Bactrim and Keflex initially the 1st time and this did not completely resolve his infection, so the clindamycin was chosen. Clindamycin was also affordable. Patient was instructed to follow up with his doctor as soon as possible discuss other options if needed. Orders Ordered: Discontinued Medications Clindamycin HCl (Cleocin) 450 mg PO NOW ONE Stop: 12/14/18 13:13 Last Admin: 12/14/18 13:22 Dose: 450 mg Consultations Consultation #1: Patient staffed with Dr. Baumann. Vital Signs - 8 hr 12/14/18 12:30 12/14/18 13:34 Temperature 97.9 F Pulse Rate 68 59 L Respiratory Rate 20 16 Blood Pressure 138/60 Blood Pressure [Right Arm] 166/71 H Pulse Oximetry 97 99 <Elizabeth Baumann DO - Last Filed: 12/17/18 07:19> Orders Ordered: Discontinued Medications Clindamycin HCl (Cleocin) 450 mg PO NOW ONE Stop: 12/14/18 13:13 Last Admin: 12/14/18 13:22 Dose: 450 mg Vital Signs - 8 hr 12/14/18 12:30 12/14/18 13:34 Temperature 97.9 F Pulse Rate 68 59 L Respiratory Rate 20 16 Blood Pressure 138/60 Blood Pressure [Right Arm] 166/71 H Pulse Oximetry 97 99 MDM - Extremity (Nontraumatic) <VAISHNAVI Bneitez - Last Filed: 12/14/18 19:03> MDM Narrative Medical decision making narrative: I suspect that this patient has cellulitis, due to exam findings (erythematous nonpurulent lower leg rash) Very little concern for systemic illness due to contain erythema, afebrile, patient reported that symptoms have not worsened, and report of chronic cellulitis. Patient was prescribed clindamycin as he reported Keflex and Bactrim were given to him the 1st time and infection did not completely resolve. Clindamycin also covers MRSA as patient stated he was told he has a staph infection, additionally clindamycin was affordable for the patient. Patient instructed to contact his doctor as soon as possible for close follow-up which is very important because I do not have a culture at this time. Patient verbalized understanding of this. Strict return precautions given. Discharge Plan Departure Patient Disposition: Home Clinical Impression: Cellulitis Qualifiers: Site of cellulitis: extremity Site of cellulitis of extremity: lower extremity Laterality: unspecified laterality Qualified Code(s): L03.119 - Cellulitis of unspecified part of limb Discharge Date/Time: 12/14/18 13:52 Interventions: ED Discharge Assessment Last Done: 12/14/18 13:51 Instructions: DI for Cellulitis -- Adult Activity Restrictions/Additional Instructions: Thank you for entrusting me with your care today. As discussed, the medication as previously prescribed to was called linezoid. I do not have access to your chart or the clinic so I am unsure specific reason for this medication and unsure if there are cultures, however I suggest to follow up you call them tomorrow to discuss antibiotic options with them as they have more information. I Have prescribed you an antibiotic in the meantime, please take as directed and was otherwise told by her primary care provider. Return to the emergency department if he develops fevers, nausea vomiting, chest pain, shortness of breath, severe high blood sugars. Prescriptions: New clindamycin HCl 300 mg capsule 450 mg PO TID 7 Days Qty: 31.5 RF: 0 No Action carvedilol [Coreg] 25 mg Tablet 25 mg PO BID Qty: 60 RF: 0 folic acid 1 mg Tablet 1 mg PO DAILY Qty: 30 RF: 0 losartan 50 mg Tablet 50 mg PO BID Qty: 60 RF: 0 metformin [Glucophage] 500 mg Tablet 500 mg PO 0800,1700 Qty: 60 RF: 0 hydrochlorothiazide 50 mg tablet 50 mg PO DAILY Qty: 30 RF: 0 nystatin 100,000 unit/gram Cream 1 applic topical PRN PRN (Reason: Rash) Qty: 1 RF: 0 chlordiazepoxide HCl 25 mg capsule 25 mg PO Q12H Qty: 2 RF: 0 Referrals: Alvaro Cho MD [Primary Care Provider] - <Elizabeth Baumann DO - Last Filed: 12/17/18 07:19> Cosign ED Attending Asmita Attestation: I was immediately available in the department for consultation. Documentation has been reviewed. I agree with assessment and plan.
[2018-12-14] MEDS: CLINDAMYCIN 150 MG CAPSULE 450 MG PO (13:22)
[2018-12-14 13:34] VITALS: BP 166/71; PULSE 59; RESP 16; O2SAT 99
--- NOTE | 2018-12-14 13:49 | PC.NURSE ---
open wound on bottom of pt's left foot, on pad below big toe, placed non adhering sponge dressing and then wrapped in coban as pt is active. Explained he needs to keep his feet clean with soap and water and not use any moisturizer or ointment as there is maceration around open wound. approximately 2cm in diameter. Pt understands instructions and knows to follow up.
== END 2018-12-14 13:52 | disposition home or self-care (01) ==
PROVIDERS: Emergency Provider Nurse Practitioner; PCP Family Medicine
DX: L03.119 Cellulitis of unspecified part of limb (principal)
CPT/HCPCS: 99283

== ENCOUNTER 2019-01-12 15:08 | Emergency (ER) | payer SELFPAY ==
[2018-08-03 17:37] VITALS: BMI 33.0
[2019-01-12 15:30] VITALS: BP 179/98; PULSE 106; RESP 16; TEMP 37.1; O2SAT 96
== END 2019-01-12 16:59 | disposition left against medical advice (07) ==
PROVIDERS: Emergency Provider Emergency Medicine; PCP Family Medicine
DX: Z53.21 Procedure and treatment not carried out due to patient leaving prior to being seen by health care provider (principal)
CPT/HCPCS: 99282

== ENCOUNTER 2019-01-15 13:28 | Emergency (ER) | payer MEDICARE, SELFPAY ==
[2018-08-03 17:37] VITALS: BMI 33.0
[2019-01-15 13:32] VITALS: BP 172/79; PULSE 108; RESP 18; TEMP 37.4; O2SAT 95
[2019-01-15] MEDS: PROPARACAINE 0.5% OPHTH SOL 1 DROPS EYE-LEFT (13:40)
--- NOTE | 2019-01-15 14:02 | DI.RAD.S_ITS ---
PROCEDURE: XR FOOT LT MIN 3V INDICATIONS: wounds ? Osteo TECHNIQUE: 3 views of the foot were acquired. COMPARISON: None. FINDINGS: Bones: No fractures or dislocations. No suspicious bony lesions. Amputations have been performed at the first and second MTP joints, and in the soft tissues immediately adjacent there is mild heterogeneity but no definite osteomyelitis extending into the metatarsal heads in both areas. There is overlap of osseous margins is allowing clear visualization of the third MTP joint, it cannot be entirely excluded. Soft tissues: No tibiotalar joint effusion. Achilles tendon appears normal. IMPRESSION: Prior presumed osteomyelitis as cause of amputations of the first and second digits. Overlaped osseous margins are present at the third MTP joint currently, and accurate assessment for osteomyelitis at that joint area is not possible. MR scanning without and with contrast may be warranted depending on clinical status. Dictated by: Stanley Delgado M.D. on 01/15/2019 at 14:33 Approved by: Stanley Delgado M.D. on 01/15/2019 at 14:35
--- NOTE | 2019-01-15 14:02 | DI.RAD.S_ITS ---
PROCEDURE: XR FOOT RT MIN 3V INDICATIONS: chronic wounds ?osteo TECHNIQUE: 3 views of the foot were acquired. COMPARISON: None. FINDINGS: Bones: No fractures or dislocations. No suspicious bony lesions. Soft tissues: No tibiotalar joint effusion. Achilles tendon appears normal. IMPRESSION: Mild degenerative change, no osteomyelitis. No gas in the soft tissues is identified. Dictated by: Stanley Delgado M.D. on 01/15/2019 at 14:35 Approved by: Stanley Delgado M.D. on 01/15/2019 at 14:35
[2019-01-15 14:34] LABS: Hematocrit 46.9 % (41-53); Hemoglobin 15.8 g/dL (13.5-17.5); Mean Corpuscular HGB Conc 33.7 % (30-36); Mean Corpuscular Volume 95.1 fL (80-100); Platelet Count 108 X10^3/uL (150-400); Red Blood Cell Count 4.93 X10^6/uL (4.5-5.9); Red Cell Distribution Width 13.3 % (11.6-14.8); White Blood Cell Count 5.5 X10^3/uL (4.5-11.0)
--- NOTE | 2019-01-15 14:44 | PC.NURSE ---
RAZA Mccracken at bedside.
[2019-01-15 14:49] LABS: Alanine Aminotransferase 46 IU/L (21-72); Albumin Globulin Ratio 1.2 (1.0-2.8); Alkaline Phosphatase 116 U/L (38-126); Aspartate Aminotransferase 78 IU/L (17-59); BUN Creatinine Ratio 8.3 (6-22); Bilirubin Total 0.9 mg/dL (0.2-1.3); Blood Urea Nitrogen 5 mg/dL (9-20); C-Reactive Protein Quant 0.8 mg/dL (<1.0); Calcium 8.6 mg/dL (8.4-10.2); Carbon Dioxide 27 mmol/L (22-32); Chloride 95 mmol/L (98-107); Estimated Glomerular Filt Rate > 60.0 mL/min (>60); Globulin 3.3 g/dL (1.7-4.1); Glucose 284 mg/dL (80-110); HEMOLYSIS < 15 (0-50); Potassium 3.6 mmol/L (3.4-5.1); Sodium 139 mmol/L (137-145); Total Protein 7.3 g/dL (6.3-8.2)
[2019-01-15 15:00] LABS: Erythrocyte Sedimentation Rate 6 MM/HR (0-15)
[2019-01-15 15:04] LABS: Add Manual Diff / Slide Review NO
[2019-01-15 15:06] LABS: Neutrophils Absolute Manual 3080 /uL (3000-5900); RBC Morphology Normal Morphology; Total Cells Counted 100
--- NOTE | 2019-01-15 15:12 | CM.SWNOTE ---
Social Work Consult Note: This CHANNEL WORKER requested to see Nathan Velez to assess safety after a suicidal comment and offer resources as needed for ETOH, housing, etc.. Ntahan presents to ER saying his eye has been bothering him for awhile and his contact lens is stuck. Reviewed chart and found extensive notes from CHANNEL WORKER team from Nathan's admission for ETOH w/d in July 2018. At that time, [facility] had refused to accept Nathan because he had already gone through detox at [facility], also he would need to be completely indp. w/ADLs and this was questionable at the time. During this July admission, Nathan was provided w/his updated Medicare number, offered numerous options for ETOH treatment in the outpt setting, and was living [place] his [place] by choice, he denied other needs. Today, met w/Nathan and his gf Mari [place], Nathan has been drinking, slurs words and cannot hold a meaningful conversation, Mari says she only bought him two beers this morning. Asked Nathan if he had current thoughts of suicide and he denied. He admits to feeling overwhelmed by life stressors and sometimes thinks about heading into the water. Nathan and his gf Mari live on his boat. Mari appears to be sober today but can not provide this CHANNEL WORKER w/any helpful or useful information that might assist in determining appropriate resources ? Both Mari and Nathan were released from an ETOH treatment stay one month ago in [facility]. It sounds like they relapsed shortly thereafter and have not been sober long enough to get things arranged, i.e. credit cards (got stolen?), social security (Nathan missed a recent appt to discuss unemployment benefits), housing, sobriety/treatment options etc. Nathan is both tearful and gregarious today and admits to this CHANNEL WORKER he needs help, although he is incapable of knowing what to ask for at this time. Mari states she gets paid tomorrow and could use her debit card, this CHANNEL WORKER strongly encouraged Mari and Nathan to use the public showers at [facility] and/or get a hotel room and begin a better hygiene regiment for Nathan d/t the severity of his diabetic foot ulcers, Mari in agreement. No further action today because Jesi lloydy needs from this CHANNEL WORKER. Updated Dr Baumann. Lakeshia Mendez, CHANNEL WORKER
--- NOTE | 2019-01-15 17:31 | ED_ITS ---
HPI - Eye Problem General Chief complaint: Eye Problems Stated complaint: CANT SEE OUT OF LEFT EYE, GOING INTO RIGHT EYE Time Seen by Provider: 01/15/19 13:36 Source: patient and old records reviewed Mode of arrival: ambulatory Limitations: no limitations History of Present Illness HPI Narrative: Patient is a 63-year-old male who presents with left eye pain. He is a known alcoholic into the ED frequently over the last few months. Today he feels like there is a contact in his eye he does not know the got out or not been bothering him for a while. He and his are currently homeless living on a boat. He was treated with antibiotics for diabetic foot ulcers he was placed on clindamycin. He says those seem to be the same. He initially said he might be suicidal which he said in the past he has no specific plan. He denies any fevers or chills. MD chief complaint: eye pain and eye redness Onset (ago): day(s) Eye Symptoms: redness, pain and foreign body sensation Related Data Home Medications Medication Instructions Recorded Confirmed carvedilol 12.5 mg PO BID 01/12/19 01/15/19 clonidine HCl 0.1 mg PO BEDTIME PRN 01/15/19 01/15/19 Previous Rx's Medication Instructions Recorded folic acid 1 mg PO DAILY #30 tab 08/06/18 hydrochlorothiazide 50 mg PO DAILY #30 tab 08/06/18 losartan 50 mg PO BID #60 tab 08/06/18 metformin [Glucophage] 500 mg PO 0800,1700 #60 tab 08/06/18 ofloxacin 1 drop EYE-LEFT Q4HRWA 7 Days #10 01/15/19 ml Allergies Allergy/AdvReac Type Severity Reaction Status Date / Time No Known Drug Allergies Allergy Verified 01/15/19 13:48 Review of Systems Review of Systems ROS Unobtainable: All systems reviewed & are unremarkable except as noted in HPI and below Constitutional Denies chills, Denies fever(s), Denies lethargy and Denies weakness Eyes Reports as per HPI ENT Ears, Nose, Mouth, and Throat: Denies change in voice, Denies neck pain and Denies sore throat Cardiovascular Denies chest pain, Denies irregular heart rhythm, Denies lightheadedness, Denies palpitations, Denies dyspnea, Denies dyspnea on exertion and Denies orthopnea Respiratory Denies cough, Denies dyspnea, Denies dyspnea on exertion and Denies wheezing Gastrointestinal Gastrointestinal: Denies abdominal pain, Denies change in bowel habits, Denies diarrhea, Denies nausea and Denies vomiting Genitourinary Denies hematuria, Denies flank pain, Denies urinary incontinence and Denies urinary urgency Musculoskeletal Denies neck pain Integumentary/Breasts Denies pruritus, Denies erythema, Denies rash and Denies wounds Neurologic Denies weakness Psychiatric Reports as per HPI Endocrine Denies palpitations Allergic/Immunologic Denies wheezing [facility] Social History household members: none Smoking Status: Never smoker alcohol intake: current Exam Initial Vital Signs Initial Vital Signs: Vital Signs Temperature 99.4 F 01/15/19 13:32 Pulse Rate 108 H 01/15/19 13:32 Respiratory Rate 18 01/15/19 13:32 Blood Pressure 172/79 H 01/15/19 13:32 Pulse Oximetry 95 01/15/19 13:32 GENERAL: Alert intoxicated male and in [no acute] distress. HEENT: Head atraumatic,EOMI, pupils reactive, face symmetric, [moist] mucous membranes EYES: EOMI, [place], Left eye Left eye was treated with proparacaine, stained with fluorescein. Dye uptake noted right on the cornea. No foreign body. CARDIOVASCULAR: Regular rate and rhythm without murmurs, rubs or gallops. RESPIRATORY: Breath sounds equal bilaterally, no wheezes rales or rhonchi. ABDOMEN: Soft, nontender. Normoactive bowel sounds all 4 quadrants. No guarding or rebound. : No CVA tenderness EXTREMITIES: Normal range of motion, no clubbing or edema. Neurovascularly intact NEUROLOGICAL: Alert and oriented x4.Normal gait and speech. Cranial nerves II through XII grossly intact. SKIN: Chronic ulcers noted on both feet. No gross drainage Course Orders Ordered: ED Orders 01/15/19 14:02 XR foot LT min 3V Stat XR foot RT min 3V Stat 01/15/19 14:20 Wound Culture and Gram Stain Stat 01/15/19 14:23 C-Reactive Protein Quant Stat Complete Blood Count AUTO DIFF Stat Comprehensive Metabolic Panel Stat Erythrocyte Sedimentation Rate Stat Discontinued Medications Proparacaine HCl (Parcaine 0.5% Ophth Maegan) 1 drops EYE-LEFT NOW ONE Stop: 01/15/19 13:39 Last Admin: 01/15/19 13:40 Dose: 1 drop Vital Signs - 8 hr 01/15/19 13:32 Temperature 99.4 F Pulse Rate 108 H Respiratory Rate 18 Blood Pressure 172/79 H Pulse Oximetry 95 MDM - Eye Problem Lab Data Attestation: I reviewed the patient's lab results. Result diagrams: 01/15/19 14:23 01/15/19 14:23 Lab Results 01/15/19 01/15/19 Range/Units 14:23 14:23 WBC 5.5 (4.5-11.0) X10^3/uL RBC 4.93 (4.5-5.9) X10^6/uL Hgb 15.8 (13.5-17.5) g/dL Hct 46.9 (41-53) % MCV 95.1 (80-100) fL MCH 32.0 (26-34) PG MCHC 33.7 (30-36) % RDW 13.3 (11.6-14.8) % Plt Count 108 L (150-400) X10^3/uL Neut % (Auto) Not Reportable Lymph % (Auto) Not Reportable Barron % (Auto) Not Reportable Eos % (Auto) Not Reportable Baso % (Auto) Not Reportable Lymph # (Auto) Not Reportable Barron # (Auto) Not Reportable Baso # (Auto) Not Reportable Total Counted 100 Seg Neutrophils % 56.0 (38-70) % Lymphocytes % (Manual) 28.0 (25-45) % Monocytes % (Manual) 14.0 H (2-11) % Eosinophils % (Manual) 1.0 L (2-4) % Basophils % (Manual) 1.0 (0-1) % Neutrophils # (Manual) 3080 (2771-4051) /uL RBC Morphology Normal morphology ESR 6 (0-15) MM/HR Sodium 139 (137-145) mmol/L Potassium 3.6 (3.4-5.1) mmol/L Chloride 95 L (98-107) mmol/L Carbon Dioxide 27 (22-32) mmol/L BUN 5 L (9-20) mg/dL Creatinine 0.60 L (0.66-1.25) mg/dL Estimated GFR > 60.0 (>60) mL/min BUN/Creatinine Ratio 8.3 (6-22) Glucose 284 H (80-110) mg/dL Calcium 8.6 (8.4-10.2) mg/dL Total Bilirubin 0.9 (0.2-1.3) mg/dL AST 78 H (17-59) IU/L ALT 46 (21-72) IU/L Alkaline Phosphatase 116 (38-126) U/L C-Reactive Protein 0.8 (<1.0) mg/dL Total Protein 7.3 (6.3-8.2) g/dL Albumin 4.0 (3.5-5.0) g/dL Globulin 3.3 (1.7-4.1) g/dL Albumin/Globulin Ratio 1.2 (1.0-2.8) Imaging Data right foot: Radiologist's impression: PROCEDURE: XR FOOT RT MIN 3V INDICATIONS: chronic wounds ?osteo TECHNIQUE: 3 views of the foot were acquired. COMPARISON: None. FINDINGS: Bones: No fractures or dislocations. No suspicious bony lesions. Soft tissues: No tibiotalar joint effusion. Achilles tendon appears normal. IMPRESSION: Mild degenerative change, no osteomyelitis. No gas in the soft tissues is identified. left foot: Radiologist's impression: PROCEDURE: XR FOOT LT MIN 3V INDICATIONS: wounds ? Osteo TECHNIQUE: 3 views of the foot were acquired. COMPARISON: None. FINDINGS: Bones: No fractures or dislocations. No suspicious bony lesions. Amputations have been performed at the first and second MTP joints, and in the soft tissues immediately adjacent there is mild heterogeneity but no definite osteomyelitis extending into the metatarsal heads in both areas. There is overlap of osseous margins is allowing clear visualization of the third MTP joint, it cannot be entirely excluded. Soft tissues: No tibiotalar joint effusion. Achilles tendon appears normal. IMPRESSION: Prior presumed osteomyelitis as cause of amputations of the first and second digits. Overlaped osseous margins are present at the third MTP joint currently, and accurate assessment for osteomyelitis at that joint area is not possible. MR scanning without and with contrast may be warranted depending on clinical status. Dictated by: Stanley Delgado M.D. on 01/15/2019 at 14:33 MDM Narrative Medical decision making narrative: Social work down to talk to patient about resources. Not actively suicidal does not meet any sort of voluntary or involuntary criteria. Patient is most concerned about his left eye. Blood work today is reassuring, no sign of osteomyelitis on x-rays or blood work. He has no gross drainage from his chronic wounds. He does need of wound referral. This time I see no need for antibiotics for his wounds. I discussed good hygiene with he and his and keeping his feet clean and dry and dressing placed over the wounds to help and he will appropriately. He is given antibiotics for his left eye is also to cover Pseudomonas with his contact history. I discussed with him specifically not to wear contacts may wear glasses until his healed. Discharge Plan Departure Patient Disposition: Home Clinical Impression: Abrasion of cornea, left Qualifiers: Encounter type: initial encounter Qualified Code(s): S05.02XA - Injury of conjunctiva and corneal abrasion without foreign body, left eye, initial en counter Discharge Date/Time: 01/15/19 15:42 Interventions: ED Discharge Assessment Last Done: 01/15/19 15:42 Instructions: DI for Corneal Abrasion Activity Restrictions/Additional Instructions: *You have been diagnosed with left corneal abrasion *What to do: Keep the feet clean and dry with soap and water. [place] dressings may stay on for up to 1 week. Check feet daily. * DO NOT WEAR CONTACTS UNTIL EYE IS COMPLETELY HEALED *Continue to take medications as directed Ofloxacin THIS IN DROPS 1 DROP IN LEFT EYE EVERY 4 HOURS WHILE AWAKE *Follow up with your primary care provider in 2-3 days *Return to ER if you should have decreased vision, drainage from eat, redness fever or any new, worsening or concerning symptoms Prescriptions: New ofloxacin 0.3 % drops 1 drop EYE-LEFT Q4HRWA 7 Days Qty: 10 RF: 0 No Action clonidine HCl 0.1 mg tablet 0.1 mg PO BEDTIME PRN (Reason: Anxiety) RF: 0 folic acid 1 mg Tablet 1 mg PO DAILY Qty: 30 RF: 0 losartan 50 mg Tablet 50 mg PO BID Qty: 60 RF: 0 metformin [Glucophage] 500 mg Tablet 500 mg PO 0800,1700 Qty: 60 RF: 0 hydrochlorothiazide 50 mg tablet 50 mg PO DAILY Qty: 30 RF: 0 carvedilol 12.5 mg tablet 12.5 mg PO BID RF: 0 Referrals: [facility] [Outside] Minoo Pearson MD [Physician] - Alvaro Cho MD [Primary Care Provider] -
== END 2019-01-15 15:42 | disposition home or self-care (01) ==
PROVIDERS: Emergency Provider Emergency Medicine; PCP Family Medicine
DX: S05.02XA Injury of conjunctiva and corneal abrasion without foreign body, left eye, initial encounter (principal); L97.529 Non-pressure chronic ulcer of other part of left foot with unspecified severity; L97.519 Non-pressure chronic ulcer of other part of right foot with unspecified severity; E11.621 Type 2 diabetes mellitus with foot ulcer
CPT/HCPCS: 36591; 73630; 80053; 85025; 85651; 86140; 87070; 87075; 87077; 87147; 87185; 87186; 87205; 99282; 99284

== ENCOUNTER 2019-03-03 13:43 | Emergency (ER) | payer MEDICARE, SELFPAY ==
[2018-08-03 17:37] VITALS: BMI 33.0
[2019-03-03 13:44] VITALS: BP 153/90; PULSE 91; RESP 16; TEMP 37; O2SAT 96; BMI 33.9
--- NOTE | 2019-03-03 17:05 | DI.RAD.S_ITS ---
PROCEDURE: XR FOOT LT MIN 3V INDICATIONS: pain, foot wound TECHNIQUE: 3 views of the foot were acquired. COMPARISON: [facility], CR, XR FOOT LT MIN 3V, 01/15/2019, 14:03. FINDINGS: Bones: Amputation of the 1st and 2nd digits has been performed, as before. No fractures or dislocations. No suspicious bony lesions. Soft tissues: No tibiotalar joint effusion. Achilles tendon appears normal. IMPRESSION: Postsurgical sequelae. No acute fracture. No osseous lesion. If symptoms and/or clinical suspicion for pathology persist, further assessment with repeat, or nonemergent advanced imaging (e.g., CT, MRI, or bone scan) may be helpful for further assessment. Dictated by: John Alcaraz M.D. on 03/03/2019 at 17:26 Approved by: John Alcaraz M.D. on 03/03/2019 at 17:27
--- NOTE | 2019-03-03 17:29 | PC.NURSE ---
pt urinated over most the bed, and in clothes. pt uncooperative, refusing to change clothes he urinated in. pt states i drink far to much pt laughing at staff after trying to help patient. pt acting inappropriate, demanding no one help him, pt unsteady on feet, leaning backwards, stumbling when attempting to stand and ambulate on his own.
--- NOTE | 2019-03-03 17:54 | PC.NURSE ---
pt states that he wants to leave, LIP aware of pt's stated plan, she states that he may do so but only if he has called for a taxi or ride home, pt states that he has or is going to call a taxi, this RN informed him that security would be making sure that he did not get behind the wheel of his own car or he would call the police if this did happen. Pt and female friend left.
--- NOTE | 2019-03-03 19:29 | ED_ITS ---
HPI - Skin/Abscess/Foreign Bdy <Mari Boyermer, MEDICAL PHYSIOLOGIST-BC - Last Filed: 03/03/19 19:35> General Chief complaint: Skin/Abscess/Foreign Body Stated complaint: left foot swelling and wound care x7 days Time Seen by Provider: 03/03/19 16:43 Source: patient Mode of arrival: ambulatory Limitations: no limitations History of Present Illness HPI narrative: The patient is a 64-year-old male of diabetes and alcoholism who presents for chief complaint of a wound on his left foot. He states that he had the 1st and 2nd toes amputated and 2015. He states he noted a wound on the bottom of his left foot, is unsure how long it has been there. He states he has been living [place] a [place] and has been raining so he has been having a lot of trouble keeping it dry. Denies any fevers vomiting or diarrhea. He states that he has been drinking today. He comes in with a friend, patient and his friend are arguing and during my interview. I redirected him multiple times. Related Data Home Medications Medication Instructions Recorded Confirmed carvedilol 12.5 mg PO BID 01/12/19 03/04/19 clonidine HCl 0.1 mg PO BEDTIME PRN 01/15/19 03/04/19 Previous Rx's Medication Instructions Recorded folic acid 1 mg PO DAILY #30 tab 08/06/18 losartan 50 mg PO BID #60 tab 08/06/18 acetaminophen 650 mg PO Q6HR PRN 5 Days tab 03/05/19 bisacodyl 10 mg [place] DAILY PRN 5 Days each 03/05/19 carvedilol [Coreg] 12.5 mg PO BID 5 Days #10 tab 03/05/19 dextrose 50 % in water (D50W) 25 gm IV PRN PRN 5 Days ml 03/05/19 docusate sodium [DOK] 100 mg PO BID #5 cap 03/05/19 enoxaparin [Lovenox] 40 mg SUBCUT DAILY 5 Days ml 03/05/19 folic acid 1 mg PO DAILY 5 Days tab 03/05/19 insulin aspart U-100 [Novolog 0 unit SUBCUT ACHS 4 Days ml 03/05/19 Flexpen U-100 Insulin] insulin glargine [Lantus Solostar 20 unit SUBCUT BEDTIME 4 Days ml 03/05/19 U-100 Insulin] lorazepam 0 mg PO CIWAPRN PRN #5 tab 03/05/19 losartan 50 mg PO BID 5 Days #10 tab 03/05/19 magnesium hydroxide [Milk of 30 ml PO DAILY PRN 5 Days ml 03/05/19 Magnesia] morphine 2 mg IV Q4HR PRN #5 ml 03/05/19 multivitamin [Tab-A-Andrea] 1 tab PO DAILY 5 Days tab 03/05/19 naloxone 0.2 mg IV Q2MIN PRN 5 Days ml 03/05/19 oxycodone 10 mg PO Q6HR PRN 5 Days tab 03/05/19 iesldkqrykce-noqwzexzdp-bjtdkw 3.375 gm IV Q6H 5 Days ml 03/05/19 [Zosyn in dextrose (iso-osm)] sennosides [senna] 17.2 mg PO BEDTIME #5 tab 03/05/19 thiamine HCl (vitamin B1) [Vitamin 100 mg PO DAILY 5 Days tab 03/05/19 B-1] vancomycin-water inject (PEG) 1,000 mg IV Q8H 5 Days #3000 ml 03/05/19 Allergies Allergy/AdvReac Type Severity Reaction Status Date / Time No Known Drug Allergies Allergy Verified 01/15/19 13:48 Review of Systems <MARTHA Whittington - Last Filed: 03/03/19 19:35> Review of Systems Narrative: GENERAL: Denies chills, fatigue, malaise, fever, sweats. HEENT: Denies sinus pain, ear pain, sore throat, difficulty swallowing, dizziness. RESPIRATORY: Denies dyspnea, cough, wheezing, hemoptysis, sputum. CARDIOVASCULAR: Denies chest pain, palpitations, orthopnea, edema, GASTROINTESTINAL: Denies nausea, vomiting, abdominal pain, diarrhea, constipation, melena. : Denies dysuria, frequency, incontinence, hematuria, urinary retention. MUSCULOSKELETAL: See HPI SKIN: See HPI NEUROLOGIC: Denies weakness, headache, numbness, change in speech, confusion, seizures, incoordination. PSYCHIATRIC: No concerning psychosocial issues. 12 point review of systems is negative except for those stated above PFSH <MARTHA Whittington - Last Filed: 03/03/19 19:35> Medical History Alcoholism /alcohol abuse (Acute) Amputated great toe of left foot (Acute) Diabetes (Acute) Diabetic neuropathy (Acute) History of amputation of toe (Acute) Hypertension (Acute) Surgical History History of appendectomy (Acute) History of tonsillectomy (Acute) No history of previous surgery (Acute) Social History household members: none Smoking Status: Never smoker alcohol intake: current Social History household members: significant other Smoking Status: Never smoker alcohol intake: current Exam <MARTHA Whittington - Last Filed: 03/03/19 19:35> Narrative Exam Narrative: GENERAL: This is a well-nourished, well-developed patient, in no acute distress lying in urine soaked sheets HEAD: Atraumatic. Normocephalic. No temporal or scalp tenderness. EYES: Pupils equal round and reactive. Extraocular motions intact. No scleral icterus. No injection or drainage. ENT: Nose without bleeding, purulent drainage or septal hematoma. Throat without erythema, tonsillar hypertrophy or exudate. Uvula midline. Airway patent. NECK: Trachea midline. No JVD or lymphadenopathy. Supple, nontender, no meningeal signs. CARDIOVASCULAR: Regular rate and rhythm without murmurs, gallops, or rubs. RESPIRATORY: Clear to auscultation. Breath sounds equal bilaterally. No wheezes, rales, or rhonchi. No cough. No increased respiratory effort. No accessory muscle use. No stridor. GASTROINTESTINAL: Abdomen soft, non-tender, nondistended. No hepato- splenomegaly, or palpable masses. No guarding. Active bowel sounds. EXTREMITIES: See skin exam. BACK: Nontender without deformity or crepitance. No flank tenderness. NEURO: AOx3. SKIN: 2 x 1 cm wound noted on ball of left foot. Granulation tissue noted. No obvious exudate. Through dermis. No visible muscle or tendon. No surrounding erythema. Noted to have toes amputated on left foot. Initial Vital Signs Initial Vital Signs: Vital Signs Temperature 98.6 F 03/03/19 13:44 Pulse Rate 91 H 03/03/19 13:44 Respiratory Rate 16 03/03/19 13:44 Blood Pressure 153/90 H 03/03/19 13:44 Pulse Oximetry 96 03/03/19 13:44 <Mari Conrad DO - Last Filed: 03/15/19 03:48> Initial Vital Signs Initial Vital Signs: Vital Signs Temperature 98.6 F 03/03/19 13:44 Pulse Rate 91 H 03/03/19 13:44 Respiratory Rate 16 03/03/19 13:44 Blood Pressure 153/90 H 03/03/19 13:44 Pulse Oximetry 96 03/03/19 13:44 Course <MARTHA Whittington - Last Filed: 03/03/19 19:35> Orders Ordered: ED Orders 03/03/19 17:05 XR foot LT min 3V Stat 03/03/19 17:45 Wound Culture and Gram Stain Stat Vital Signs Vital signs: Vital Signs - 8 hr 03/03/19 13:44 Temperature 98.6 F Pulse Rate 91 H Respiratory Rate 16 Blood Pressure 153/90 H Pulse Oximetry 96 <Mari Conrad DO - Last Filed: 03/15/19 03:48> Orders Ordered: ED Orders 03/03/19 17:05 XR foot LT min 3V Stat 03/03/19 17:45 Wound Culture and Gram Stain Stat Vital Signs Vital signs: Vital Signs - 8 hr 03/03/19 13:44 Temperature 98.6 F Pulse Rate 91 H Respiratory Rate 16 Blood Pressure 153/90 H Pulse Oximetry 96 MDM - Skin/Abscess/Foreign Bdy <MARTHA Whittington - Last Filed: 03/03/19 19:35> Imaging Data Foot x-ray: Radiologist's impression: [address] [address] XRay Report Signed Patient: Nathan Crow JMR#: [id number] : [id number]:[id number] Age/Sex: 64 / MDate of Service: 03/03/19 Loc: ED Accession Number: [id number] Procedure: XR foot LT min 3V Ordering Provider: Mari Huff PROCEDURE: XR FOOT LT MIN 3V INDICATIONS: pain, foot wound TECHNIQUE: 3 views of the foot were acquired. COMPARISON: [facility], CR, XR FOOT LT MIN 3V, 01/15/2019, 14:03. FINDINGS: Bones: Amputation of the 1st and 2nd digits has been performed, as before. No fractures or dislocations. No suspicious bony lesions. Soft tissues: No tibiotalar joint effusion. Achilles tendon appears normal. IMPRESSION: Postsurgical sequelae. No acute fracture. No osseous lesion. If symptoms and/or clinical suspicion for pathology persist, further assessment with repeat, or nonemergent advanced imaging (e.g., CT, MRI, or bone scan) may be helpful for further assessment. Dictated by: John Alcaraz M.D. on 03/03/2019 at 17:26 Approved by: John Alcaraz M.D. on 03/03/2019 at 17:27 [facility] Narrative Medical decision making narrative: The patient is a 64-year-old male well known to this department with a history of diabetes and alcoholism who presents with a chief complaint of wound on his left foot. He states has been there a long time, has seen his PCP and was referred to wound care. The patient was noted to be argumentative throughout his stay in the emergency department, arguing with me and his visitor. The patient urinated in his bed knowingly several times throughout his stay, including while I was evaluating his foot. However he did not follow up with wound care. He took a wound culture, discussed a plan of getting an x-ray as well starting him on antibiotics. However the patient stated he wanted to leave and left against medical advice. Given the patient's appeared intoxicated state, security ensure that the patient did not drive home. I did encourage the patient follow up with his PCP as well as wound care. The patient ambulated outside the emergency department and left against medical advice. <Mari Conrad, DO - Last Filed: 03/15/19 03:48> [facility] Narrative Medical decision making narrative: Patient case was discussed, he is intoxicated but appears able to understand his current situation and risks/benefits and repeatedly asking to leave. Patient labs show normal white count but he does have a left shift with elevated neutrophils, platelets are 149, hemoglobin is 12.9 he appears to normally run around the 14 range. Patient was encouraged to stay for further evaluation of osteomyelitis but elected to leave Against Medical Advice. He was told that he could return to the department at any time for re-evaluation. Patient has had prior amputations secondary to diabetes infection. No obvious osteomyelitis on x-ray but patient is certainly at risk. Discharge Plan Departure Patient Disposition: Left Against Medical Advice Clinical Impression: Patient left before treatment completed Discharge Date/Time: 03/03/19 17:57 Prescriptions: No Action clonidine HCl 0.1 mg tablet 0.1 mg PO BEDTIME PRN (Reason: Anxiety) RF: 0 folic acid 1 mg Tablet 1 mg PO DAILY Qty: 30 RF: 0 losartan 50 mg Tablet 50 mg PO BID Qty: 60 RF: 0 carvedilol 12.5 mg tablet 12.5 mg PO BID RF: 0 multivitamin [Tab-A-Andrea] Tablet 1 tab PO DAILY 5 Days RF: 0 losartan 50 mg Tablet 50 mg PO BID 5 Days Qty: 10 RF: 0 acetaminophen 325 mg Tablet 650 mg PO Q6HR PRN (Reason: As Needed For Fever/Mild Pain) 5 Days RF: 0 carvedilol [Coreg] 12.5 mg Tablet 12.5 mg PO BID 5 Days Qty: 10 RF: 0 naloxone 0.4 mg/mL Solution 0.2 mg IV Q2MIN PRN (Reason: Opiate Reversal) 5 Days RF: 0 magnesium hydroxide [Milk of Magnesia] 400 mg/5 mL Suspension 30 ml PO DAILY PRN (Reason: Constipation) 5 Days RF: 0 bisacodyl 10 mg Suppository 10 mg IL DAILY PRN (Reason: Constipation) 5 Days RF: 0 docusate sodium [DOK] 100 mg Capsule 100 mg PO BID Qty: 5 RF: 0 folic acid 1 mg Tablet 1 mg PO DAILY 5 Days RF: 0 lorazepam 1 mg Tablet 0 mg PO CIWAPRN PRN (Reason: Alcohol Withdrawal) Qty: 5 RF: 0 enoxaparin [Lovenox] 40 mg/0.4 mL Syringe 40 mg subcut DAILY 5 Days RF: 0 dextrose 50 % in water (D50W) Syringe 25 gm IV PRN PRN (Reason: Hypoglycemia) 5 Days RF: 0 Novolog Flexpen U-100 Insulin 100 unit/mL (3 mL) Insulin Pen 0 unit subcut ACHS 4 Days RF: 0 Lantus Solostar U-100 Insulin 100 unit/mL (3 mL) Insulin Pen 20 unit subcut BEDTIME 4 Days RF: 0 morphine 2 mg/mL Syringe 2 mg IV Q4HR PRN (Reason: Pain, Moderate (4-6)) Qty: 5 RF: 0 sennosides [senna] 8.6 mg Tablet 17.2 mg PO BEDTIME Qty: 5 RF: 0 thiamine HCl (vitamin B1) [Vitamin B-1] 100 mg Tablet 100 mg PO DAILY 5 Days RF: 0 Zosyn in dextrose (iso-osm) 3.375 gram/50 mL Piggyback 3.375 gm IV Q6H 5 Days RF: 0 oxycodone 10 mg Tablet 10 mg PO Q6HR PRN (Reason: Pain, Severe (7-10)) 5 Days RF: 0 vancomycin-water inject (PEG) 1 gram/200 mL Piggyback 1,000 mg IV Q8H 5 Days Qty: 3000 RF: 0 Stand Alone Forms: Against Medical Advice
== END 2019-03-03 17:57 | disposition left against medical advice (07) ==
PROVIDERS: Emergency Provider Nurse Practitioner Family; PCP Family Medicine
DX: S91.302A Unspecified open wound, left foot, initial encounter (principal)
CPT/HCPCS: 73630; 87070; 87075; 87077; 87147; 87205; 99282

== ENCOUNTER 2019-03-04 10:10 | Inpatient (IN) | payer MEDICARE, SELFPAY ==
[2018-08-03 17:37] VITALS: BMI 33.0
[2019-03-04] VITALS (12 sets, daily range): BP systolic 145–196; BP diastolic 72–101; PULSE 88–112; RESP 16–22; TEMP 36.4–37.7; O2SAT 94–99; BMI 32.5
--- NOTE | 2019-03-04 10:19 | ED.SKABFB ---
HPI - Skin/Abscess/Foreign Bdy General Chief complaint: Skin/Abscess/Foreign Body Stated complaint: Lt foot pain twice size as yesterday Time Seen by Provider: 03/04/19 10:18 Source: patient and family Mode of arrival: ambulatory Limitations: no limitations History of Present Illness HPI narrative: 64M smoker with diabetes and HTN and history of osteomyelitis on his foot presents with a painful blister which ruptured and drained purulent foul smelling fluid presents with pain, swelling, redness of his foot. Patient was here yesterday and left AMA after culture was obtained and xrays performed. Patient denies fever but has had chills. He denies any chest pain or shortness of breath. He denies any nausea or vomiting. His chief complaint is of significant pain. His last toe amputation was in 2013. He admits to not taking any of his meds for awhile MD complaint: abscess/boil Onset (ago): day(s) Tetanus up to date: yes Location: LLE Severity: moderate Quality: burning, stabbing and aching Pain Consistency: constant Relieving factors: none Exacerbating factors: palpation and movement Associated symptoms: chills Treatments prior to arrival: bandages Related Data Home Medications Medication Instructions Recorded Confirmed carvedilol 12.5 mg PO BID 01/12/19 03/04/19 clonidine HCl 0.1 mg PO BEDTIME PRN 01/15/19 03/04/19 Previous Rx's Medication Instructions Recorded folic acid 1 mg PO DAILY #30 tab 08/06/18 hydrochlorothiazide 50 mg PO DAILY #30 tab 08/06/18 losartan 50 mg PO BID #60 tab 08/06/18 metformin [Glucophage] 500 mg PO 0800,1700 #60 tab 08/06/18 Allergies Allergy/AdvReac Type Severity Reaction Status Date / Time No Known Drug Allergies Allergy Verified 01/15/19 13:48 Review of Systems Constitutional Constitutional: Reports chills, Denies fatigue, Denies fever(s), Denies frequent falls, Denies lethargy and Denies weakness Eyes Eyes: Denies change in vision, Denies eye discharge, Denies irritation and Denies loss of vision ENT Ears, Nose, Mouth, and Throat: Denies change in voice, Denies dizziness, Denies neck pain, Denies sore throat and Denies throat swelling Cardiovascular Cardiovascular: Denies chest pain, Denies irregular heart rhythm, Denies lightheadedness, Denies palpitations, Denies dyspnea, Denies dyspnea on exertion and Denies orthopnea Respiratory Respiratory: Denies cough, Denies dyspnea, Denies dyspnea on exertion and Denies wheezing Gastrointestinal Gastrointestinal: Denies abdominal pain, Denies change in bowel habits, Denies diarrhea, Denies nausea and Denies vomiting Genitourinary Genitourinary: Denies hematuria, Denies flank pain, Denies urinary incontinence and Denies urinary urgency Musculoskeletal Musculoskeletal: Denies back pain, Denies muscle weakness, Denies neck pain, Denies numbness and Denies tingling Integumentary/Breasts Skin/Breast: Denies pruritus, Reports erythema, Denies rash, Reports skin ulcer, Reports sores and Reports wounds Neurologic Neurologic: Denies behavioral changes, Denies confusion, Denies dizziness, Denies frequent falls, Denies loss of vision, Denies numbness, Denies tingling and Denies weakness Psychiatric Psychiatric: Denies anxiety, Denies behavioral changes, Denies confusion, Denies depression, Denies homicidal ideation and Denies suicidal ideation Endocrine Endocrine: Denies fatigue, Denies flushing and Denies palpitations Hematologic/Lymphatic Hematologic/Lymphatic: Denies easy bruising Allergic/Immunologic Allergic/Immunologic: Denies urticaria, Denies throat swelling and Denies wheezing [facility] Medical History Alcoholism /alcohol abuse (Acute) Amputated great toe of left foot (Acute) Diabetes (Acute) Diabetic neuropathy (Acute) History of amputation of toe (Acute) Hypertension (Acute) Surgical History History of appendectomy (Acute) History of tonsillectomy (Acute) No history of previous surgery (Acute) Social History household members: significant other Smoking Status: Never smoker alcohol intake: current Social History household members: significant other Smoking Status: Never smoker alcohol intake: current Exam Narrative Exam Narrative: GENERAL: [64] year old patient appears older than stated age. A bit disheveled and unkempt, in distress HEAD: Atraumatic. Normocephalic. EYES: Pupils equal round and reactive. Extraocular motions intact. No scleral icterus. No injection or drainage. ENT: Nose without bleeding, purulent drainage. Throat without erythema, tonsillar hypertrophy or exudate. Airway patent. NECK: Trachea midline. Non tender CARDIOVASCULAR: Tachycardic but regular rhythm without murmurs, gallops, or rubs. RESPIRATORY: Clear to auscultation. Breath sounds equal bilaterally. No wheezes, rales, or rhonchi. GASTROINTESTINAL: Abdomen soft, non-tender, nondistended. EXTREMITIES: Open sore on plantar surface of left foot, overlying 1st metatarsal phalangeal joint with foul-smelling exudate. There is warmth, redness and tenderness to palpation surrounding as well as on dorsum of foot, no lymphangitis. BACK: Nontender without deformity or crepitance. No flank tenderness. NEURO: AOx3. SKIN: No rash or erythema of visible areas other than that which is stated above Initial Vital Signs Initial Vital Signs: Vital Signs Temperature 98.4 F 03/04/19 10:18 Pulse Rate 112 H 03/04/19 10:18 Respiratory Rate 22 03/04/19 10:18 Blood Pressure 196/101 H 03/04/19 10:18 Pulse Oximetry 99 03/04/19 10:18 Course Orders Ordered: ED Orders 03/04/19 10:58 Urinalysis and Microscopic Stat Urine Culture Stat Urine Drug Screen, Rapid Stat 03/04/19 11:10 Blood Culture Stat Acetaminophen (Tylenol) 650 mg PO Q6HR PRN PRN Reason: As Needed for Fever/Mild Pain Bisacodyl (Dulcolax) 10 mg [place] DAILY PRN PRN Reason: Constipation Carvedilol (Coreg) 12.5 mg PO BID [facility] Dextrose (D50w) 25 gm IV PRN PRN PRN Reason: Hypoglycemia Docusate Sodium (Colace) 100 mg PO BID [facility] Enoxaparin Sodium (Lovenox) 40 mg SUBCUT DAILY [facility] Last Admin: 03/04/19 16:04 Dose: 40 mg Documented by: BRYANT Folic Acid (Folic Acid) 1 mg PO DAILY [facility] Sodium Chloride (Normal Saline 0.45%) 1,000 mls @ 100 mls/hr IV CONT [facility] Last Admin: 09/18/19 16:04 Dose: 100 mls/hr Documented by: BRYANT Piperacillin/Tazobactam/Dextrose (Zosyn) 3.375 gm in 50 mls @ 100 mls/hr IV Q6H [facility] Last Infusion: 03/04/19 17:00 Dose: 0 mls/hr Documented by: Admin: 03/04/19 16:04 Dose: 100 mls/hr Documented by: BRYANT Magnesium Sulfate 2 gm/ Folic Acid 1 mg/ Thiamine HCl 100 mg / Multivitamins 10 ml/ Sodium Chloride 1,015.2 mls @ 125 mls/hr IV NOW ONE Stop: 03/04/19 23:00 Last Admin: 03/04/19 16:56 Dose: 125 mls/hr Documented by: BRYANT Vancomycin HCl (Vancomycin) 1,000 mg in 200 mls @ 200 mls/hr IV Q8H [facility] Last Admin: 03/04/19 17:00 Dose: 200 mls/hr Documented by: BRYANT Insulin Aspart (Novolog Flexpen) 0 unit SUBCUT ACHS [facility]; Protocol Last Admin: 03/04/19 16:57 Dose: 3 unit Documented by: BRYANT Cosigned by: KKNOTT Insulin Glargine (Lantus Solostar (Pen)) 10 unit SUBCUT 2100 [facility] Lorazepam (Ativan) 2 mg PO Q8HR [facility]; Protocol Losartan Potassium (Cozaar) 50 mg PO BID [facility] Magnesium Hydroxide (Milk Of Magnesia) 30 ml PO DAILY PRN PRN Reason: Constipation Morphine Sulfate (Morphine) 2 mg IV Q4HR PRN PRN Reason: Pain, Moderate (4-6) Multivitamins (Tab-A-Andrea) 1 tab PO DAILY [facility] Last Admin: 03/04/19 16:04 Dose: 1 tab Documented by: BRYANT Naloxone HCl (Narcan) 0.2 mg IV Q2MIN PRN PRN Reason: Opiate Reversal Ondansetron HCl (Zofran) 4 mg IV Q8HR PRN PRN Reason: Nausea And Vomiting Oxycodone HCl (Percolone) 10 mg PO Q6HR PRN PRN Reason: Pain, Severe (7-10) Sennosides (Senna) 17.2 mg PO BEDTIME [facility] Thiamine HCl (Vitamin B-1) 100 mg PO DAILY [facility] Stop: 03/08/19 09:01 Vancomycin HCl (Vancomycin Trough) 1 request MISC 1630 [facility] Stop: 03/05/19 16:31 Discontinued Medications Levofloxacin (Levaquin) 500 mg in 100 mls @ 100 mls/hr IV NOW ONE Stop: 03/04/19 11:19 Last Infusion: 03/04/19 12:24 Dose: 0 mls/hr Documented by: Admin: 03/04/19 11:10 Dose: 100 mls/hr Documented by: TOSHA Sodium Chloride (Normal Saline 0.9%) 1,000 mls @ 1,000 mls/hr IV BOLUS ONE Stop: 03/04/19 11:58 Last Infusion: 03/04/19 12:01 Dose: 0 mls/hr Documented by: Admin: 03/04/19 11:09 Dose: 1,000 mls/hr Documented by: TOSHA Sodium Chloride (Normal Saline 0.9%) 3,442.77 mls @ 1,147.59 mls/hr 30 ml/kg infuse over 3 hr (3442.77 ml) IV NOW ONE Stop: 03/04/19 14:23 Last Infusion: 03/04/19 13:48 Dose: 0 mls/hr Documented by: Infusion: 03/04/19 12:02 Dose: 1,147.59 mls/hr Documented by: Admin: 03/04/19 12:01 Dose: 1,147.59 mls/hr Documented by: COLT Ketorolac Tromethamine (Toradol) 30 mg IV NOW ONE Stop: 03/04/19 11:07 Last Admin: 03/04/19 11:09 Dose: 30 mg Documented by: TOSHA Vital Signs Vital signs: Vital Signs - 8 hr 03/04/19 12:00 03/04/19 12:30 Pulse Rate 100 H 93 H Respiratory Rate 16 16 Blood Pressure [Right Arm] 145/72 H 152/81 H Pulse Oximetry 98 97 MDM - Skin/Abscess/Foreign Bdy Lab Data Result diagrams: 03/04/19 10:30 03/04/19 10:30 Labs: Lab Results 03/04/19 03/04/19 03/04/19 Range/Units 10: 10:30 10:30 WBC 11.8 H (4.5-11.0) X10^3/uL RBC 4.22 L (4.5-5.9) X10^6/uL Hgb 14.5 (13.5-17.5) g/dL Hct 41.8 (41-53) % MCV 98.9 (80-100) fL MCH 34.3 H (26-34) PG MCHC 34.7 (30-36) % RDW 18.1 H (11.6-14.8) % Plt Count 177 (150-400) X10^3/uL Neut % (Auto) 79.0 H (50-75) % Lymph % (Auto) 7.9 L (25-40) % [place] % (Auto) 12.5 (3-14) % Eos % (Auto) 0.0 L (2-4) % Baso % (Auto) 0.6 (0-2) % Neut # (Auto) 9300 H (4892-8816) /uL Lymph # (Auto) 900 L (0516-6389) /uL [place] # (Auto) 1500 H (0-900) /uL Eos # (Auto) 0 (0-450) /uL Baso # (Auto) 100 (0-100) /uL ESR 17 H (0-15) MM/HR Sodium 135 L (137-145) mmol/L Potassium 3.4 (3.4-5.1) mmol/L Chloride 91 L (98-107) mmol/L Carbon Dioxide 28 (22-32) mmol/L BUN 4 L (9-20) mg/dL Creatinine 0.60 L (0.66-1.25) mg/dL Estimated GFR > 60.0 (>60) mL/min BUN/Creatinine Ratio 6.7 (6-22) Glucose 322 H (80-110) mg/dL Lactate (0.7-2.1) mmol/L Calcium 8.3 L (8.4-10.2) mg/dL Magnesium 1.9 (1.6-2.3) mg/dL Total Bilirubin (0.2-1.3) mg/dL Conjugated Bilirubin (0.0-0.3) md/dL Unconjugated Bilirubin (0.0-1.1) mg/dL AST (17-59) IU/L ALT (21-72) IU/L Alkaline Phosphatase (38-126) U/L C-Reactive Protein 4.0 H (<1.0) mg/dL Total Protein (6.3-8.2) g/dL Albumin (3.5-5.0) g/dL Globulin (1.7-4.1) g/dL Albumin/Globulin Ratio (1.0-2.8) Urine Color Urine Appearance Urine pH (4.5-8.0) Ur Specific [place] (1.000-1.035) Urine Protein (Negative) Urine Glucose (UA) (Negative) g/dL Urine Ketones (NEGATIVE) Urine Occult Blood (Negative) Urine Nitrate (Negative) Urine Bilirubin (NEGATIVE) Urine Urobilinogen (0.2) E.U./dL Ur Leukocyte Esterase (NEGATIVE) Urine RBC (0-5/HPF) Urine WBC (0-5/HPF) Urine Bacteria (None) Ur Culture Indicated? Urine Opiates Screen (Negative) Ur Oxycodone Screen (Negative) Urine Methadone Screen (Negative) Ur Barbiturates Screen (Negative) U Tricyclic Antidepress (Negative) Ur Phencyclidine Scrn (Negative) Ur Amphetamines Screen (Negative) U Methamphetamines Scrn (Negative) Ur MDMA Scrn (Ecstasy) (Negative) U Benzodiazepines Scrn (Negative) Urine Cocaine Screen (Negative) U Marijuana (THC) Screen (Negative) Ethyl Alcohol ( - 10) mg/dL 03/04/19 03/04/19 03/04/19 Range/Units 10:30 10:30 10:58 WBC (4.5-11.0) X10^3/uL RBC (4.5-5.9) X10^6/uL Hgb (13.5-17.5) g/dL Hct (41-53) % MCV (80-100) fL MCH (26-34) PG MCHC (30-36) % RDW (11.6-14.8) % Plt Count (150-400) X10^3/uL Neut % (Auto) (50-75) % Lymph % (Auto) (25-40) % [place] % (Auto) (3-14) % Eos % (Auto) (2-4) % Baso % (Auto) (0-2) % Neut # (Auto) (0168-6962) /uL Lymph # (Auto) (6447-2624) /uL [place] # (Auto) (0-900) /uL Eos # (Auto) (0-450) /uL Baso # (Auto) (0-100) /uL ESR (0-15) MM/HR Sodium (137-145) mmol/L Potassium (3.4-5.1) mmol/L Chloride (98-107) mmol/L Carbon Dioxide (22-32) mmol/L BUN (9-20) mg/dL Creatinine (0.66-1.25) mg/dL Estimated GFR (>60) mL/min BUN/Creatinine Ratio (6-22) Glucose (80-110) mg/dL Lactate 4.9 H* (0.7-2.1) mmol/L Calcium (8.4-10.2) mg/dL Magnesium (1.6-2.3) mg/dL Total Bilirubin 2.1 H (0.2-1.3) mg/dL Conjugated Bilirubin 0.0 (0.0-0.3) md/dL Unconjugated Bilirubin 1.1 (0.0-1.1) mg/dL AST 188 H (17-59) IU/L ALT 111 H (21-72) IU/L Alkaline Phosphatase 173 H (38-126) U/L C-Reactive Protein (<1.0) mg/dL Total Protein 6.9 (6.3-8.2) g/dL Albumin 3.5 (3.5-5.0) g/dL Globulin 3.4 (1.7-4.1) g/dL Albumin/Globulin Ratio 1.0 (1.0-2.8) Urine Color Yellow Urine Appearance Clear Urine pH 5.0 (4.5-8.0) Ur Specific [place] <=1.005 (1.000-1.035) Urine Protein Negative (Negative) Urine Glucose (UA) 2+ H (Negative) g/dL Urine Ketones Trace H (NEGATIVE) Urine Occult Blood 1+ H (Negative) Urine Nitrate Negative (Negative) Urine Bilirubin Negative (NEGATIVE) Urine Urobilinogen 0.2 (0.2) E.U./dL Ur Leukocyte Esterase Trace H (NEGATIVE) Urine RBC 0-1/hpf (0-5/HPF) Urine WBC 10-30/hpf H (0-5/HPF) Urine Bacteria Many (>30) H (None) Ur Culture Indicated? Specimen cultured Urine Opiates Screen (Negative) Ur Oxycodone Screen (Negative) Urine Methadone Screen (Negative) Ur Barbiturates Screen (Negative) U Tricyclic Antidepress (Negative) Ur Phencyclidine Scrn (Negative) Ur Amphetamines Screen (Negative) U Methamphetamines Scrn (Negative) Ur MDMA Scrn (Ecstasy) (Negative) U Benzodiazepines Scrn (Negative) Urine Cocaine Screen (Negative) U Marijuana (THC) Screen (Negative) Ethyl Alcohol 296 H ( - 10) mg/dL 03/04/19 Range/Units 10:58 WBC (4.5-11.0) X10^3/uL RBC (4.5-5.9) X10^6/uL Hgb (13.5-17.5) g/dL Hct (41-53) % MCV (80-100) fL MCH (26-34) PG MCHC (30-36) % RDW (11.6-14.8) % Plt Count (150-400) X10^3/uL Neut % (Auto) (50-75) % Lymph % (Auto) (25-40) % [place] % (Auto) (3-14) % Eos % (Auto) (2-4) % Baso % (Auto) (0-2) % Neut # (Auto) (5418-7295) /uL Lymph # (Auto) (9283-4590) /uL [place] # (Auto) (0-900) /uL Eos # (Auto) (0-450) /uL Baso # (Auto) (0-100) /uL ESR (0-15) MM/HR Sodium (137-145) mmol/L Potassium (3.4-5.1) mmol/L Chloride (98-107) mmol/L Carbon Dioxide (22-32) mmol/L BUN (9-20) mg/dL Creatinine (0.66-1.25) mg/dL Estimated GFR (>60) mL/min BUN/Creatinine Ratio (6-22) Glucose (80-110) mg/dL Lactate (0.7-2.1) mmol/L Calcium (8.4-10.2) mg/dL Magnesium (1.6-2.3) mg/dL Total Bilirubin (0.2-1.3) mg/dL Conjugated Bilirubin (0.0-0.3) md/dL Unconjugated Bilirubin (0.0-1.1) mg/dL AST (17-59) IU/L ALT (21-72) IU/L Alkaline Phosphatase (38-126) U/L C-Reactive Protein (<1.0) mg/dL Total Protein (6.3-8.2) g/dL Albumin (3.5-5.0) g/dL Globulin (1.7-4.1) g/dL Albumin/Globulin Ratio (1.0-2.8) Urine Color Urine Appearance Urine pH (4.5-8.0) Ur Specific [place] (1.000-1.035) Urine Protein (Negative) Urine Glucose (UA) (Negative) g/dL Urine Ketones (NEGATIVE) Urine Occult Blood (Negative) Urine Nitrate (Negative) Urine Bilirubin (NEGATIVE) Urine Urobilinogen (0.2) E.U./dL Ur Leukocyte Esterase (NEGATIVE) Urine RBC (0-5/HPF) Urine WBC (0-5/HPF) Urine Bacteria (None) Ur Culture Indicated? Urine Opiates Screen Negative (Negative) Ur Oxycodone Screen Negative (Negative) Urine Methadone Screen Negative (Negative) Ur Barbiturates Screen Negative (Negative) U Tricyclic Antidepress Negative (Negative) Ur Phencyclidine Scrn Negative (Negative) Ur Amphetamines Screen Negative (Negative) U Methamphetamines Scrn Negative (Negative) Ur MDMA Scrn (Ecstasy) Negative (Negative) U Benzodiazepines Scrn Negative (Negative) Urine Cocaine Screen Negative (Negative) U Marijuana (THC) Screen Negative (Negative) Ethyl Alcohol ( - 10) mg/dL Imaging Data Xray Foot: Radiologist's impression: [address] [address] XRay Report Signed Patient: Nathan Crow JMR#: [id number] : [id number]:[id number] Age/Sex: 64 / MDate of Service: 03/03/19 Loc: ED Accession Number: [id number] Procedure: XR foot LT min 3V Ordering Provider: Mari Huff PROCEDURE: XR FOOT LT MIN 3V INDICATIONS: pain, foot wound TECHNIQUE: 3 views of the foot were acquired. COMPARISON: [facility], , XR FOOT LT MIN 3V, 01/15/2019, 14:03. FINDINGS: Bones: Amputation of the 1st and 2nd digits has been performed, as before. No fractures or dislocations. No suspicious bony lesions. Soft tissues: No tibiotalar joint effusion. Achilles tendon appears normal. IMPRESSION: Postsurgical sequelae. No acute fracture. No osseous lesion. If symptoms and/or clinical suspicion for pathology persist, further assessment with repeat, or nonemergent advanced imaging (e.g., CT, MRI, or bone scan) may be helpful for further assessment. Dictated by: John Alcaraz M.D. on 03/03/2019 at 17:26 Approved by: John Alcaraz M.D. on 03/03/2019 at 17:27 [facility] Narrative Medical decision making narrative: 64-year-old male with history of osteomyelitis presents with pain and drainage from left foot and exam consistent with possible osteomyelitis. Patient does not meet SIRS criteria therefore cannot technically meet diagnosis of sepsis, however, given slight bump in WBC, critical lactate and tachycardia patient is given large fluid volumes. Early ABX were based on prior cx results. Patient admitted for stabilization of his condition and ongoing evaluation Discharge Plan Departure Patient Disposition: Admitted As Inpatient Clinical Impression: Cellulitis of foot Sepsis Qualifiers: Sepsis type: sepsis due to unspecified organism Sepsis acute organ dysfunction status: without acute organ dysfunction Qualified Code(s): A41.9 - Sepsis, unspecified organism Discharge Date/Time: 03/04/19 13:55 Admit Date/Time: 03/04/19 12:50 Admit Provider: Frida Snow
[2019-03-04 10:44] LABS: Add Manual Diff / Slide Review NO; Basophils Absolute Auto 100 /uL (0-100); Basophils Percent Auto 0.6 % (0-2); Eosinophils Absolute Auto 0 /uL (0-450); Hematocrit 41.8 % (41-53); Hemoglobin 14.5 g/dL (13.5-17.5); Lymphocytes Absolute Auto 900 /uL (1100-4500); Lymphocytes Percent Auto 7.9 % (25-40); Mean Corpuscular HGB Conc 34.7 % (30-36); Mean Corpuscular Hemoglobin 34.3 PG (26-34); Mean Corpuscular Volume 98.9 fL (80-100); Monocytes Absolute Auto 1500 /uL (0-900); Monocytes Percent Auto 12.5 % (3-14); Neutrophils Absolute Auto 9300 /uL (1500-7000); Platelet Count 177 X10^3/uL (150-400); Red Blood Cell Count 4.22 X10^6/uL (4.5-5.9); Red Cell Distribution Width 18.1 % (11.6-14.8); White Blood Cell Count 11.8 X10^3/uL (4.5-11.0)
[2019-03-04 10:58] LABS: BUN Creatinine Ratio 6.7 (6-22); Blood Urea Nitrogen 4 mg/dL (9-20); Calcium 8.3 mg/dL (8.4-10.2); Carbon Dioxide 28 mmol/L (22-32); Chloride 91 mmol/L (98-107); Estimated Glomerular Filt Rate > 60.0 mL/min (>60); Glucose 322 mg/dL (80-110); HEMOLYSIS < 15 (0-50); Potassium 3.4 mmol/L (3.4-5.1); Sodium 135 mmol/L (137-145)
[2019-03-04 11:00] LABS: Erythrocyte Sedimentation Rate 17 MM/HR (0-15)
[2019-03-04] MEDS: SODIUM CHLORIDE 0.9% 1,000 ML 1000 ML IV (11:09)
[2019-03-04] MEDS: KETOROLAC 60 MG/2 ML VIAL 30 MG IV (11:09)
[2019-03-04] MEDS: levoFLOXacin 500 MG/100 ML PIGGYBACK 100 MG IV (11:10)
[2019-03-04 11:16] LABS: Lactate (Lactic Acid) 4.9 mmol/L (0.7-2.1)
[2019-03-04 11:19] LABS: Appearance Urine UA CLEAR; Bilirubin Urine UA NEGATIVE (NEGATIVE); Color Urine UA YELLOW; Glucose Urine UA 2+ g/dL (Negative); Ketones Urine UA TRACE (NEGATIVE); Leukocyte Esterase Urine UA TRACE (NEGATIVE); Nitrite Urine UA NEGATIVE (Negative); Occult Blood Urine UA 1+ (Negative); Protein Urine UA NEGATIVE (Negative); Specific Gravity Urine UA <=1.005 (1.000-1.035); Urobilinogen Urine UA 0.2 E.U./dL (0.2)
[2019-03-04 11:28] LABS: Alanine Aminotransferase 111 IU/L (21-72); Albumin 3.5 g/dL (3.5-5.0); Alkaline Phosphatase 173 U/L (38-126); Aspartate Aminotransferase 188 IU/L (17-59); Bilirubin Total 2.1 mg/dL (0.2-1.3); Bilirubin Unconjugated 1.1 mg/dL (0.0-1.1); Ethanol (ETOH) 296 mg/dL; Globulin 3.4 g/dL (1.7-4.1); HEMOLYSIS < 15 (0-50); Total Protein 6.9 g/dL (6.3-8.2)
[2019-03-04 11:29] LABS: Urine Amphetamines Negative (Negative); Urine Barbiturates Negative (Negative); Urine Benzodiazepines Negative (Negative); Urine Cocaine Negative (Negative); Urine MDMA Negative (Negative); Urine Methadone Negative (Negative); Urine Methamphetamines Negative (Negative); Urine Morphine/Opi cutoff 2000 Negative (Negative); Urine Oxycodone Negative (Negative); Urine Phencyclidine Negative (Negative); Urine THC Negative (Negative); Urine Tricyclic Antidepressant Negative (Negative)
[2019-03-04 11:45] LABS: Bacteria Urine Many (>30); Culture Indicated Urine Specimen Cultured; RBC Urine 0-1/HPF (0-5/HPF); WBC Urine 10-30/HPF (0-5/HPF)
[2019-03-04] MEDS: SODIUM CHLORIDE 0.9% 1147.59 ML IV (12:01)
--- NOTE | 2019-03-04 12:30 | PC.NURSE ---
Pt noted to be consuming etoh (14% 'tall boy') told he could not consume etoh in the hospital. If he feels as if he is experiencing withdrawal symptoms he is encouraged to call for assist and possible medication. Girlfriend at bedside appears heavily intoxicated with slurred speech, unsteady gait and poor eye contact. Both verbalized understanding that etoh consumption in hospital was not allowed. Both verbalized understanding that police would be called if either attempted to drive. Girlfriend noted to be laying on top of pt apparently beginning to have intercourse. both verbalized understanding that that was inappropriate in the ED with the door open.
[2019-03-04 12:38] LABS: Reflexed Lactate in 2 Hours Y
--- NOTE | 2019-03-04 14:48 | PC.NURSE ---
Pt arrived from ED via W/C Alert/oriented, impulsive. Pt cooperative this time. HL RAC intact. Left foot w/ ulcer on bottom below great toe area. HX of toe amputation 2014. No drainage noted at this time. Pt oriented to room and call system.
--- NOTE | 2019-03-04 14:59 | PM.HP.1 ---
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 He states he was seen in the emergency department they dressed the wound and told him to keep it dry. He and his girlfriend live on his boat. He states it has been raining for the past 2 weeks. He has had water on the foot for that entire time. Yesterday he noticed swelling of the foot with pain under the ball of the foot. He was seen and evaluated in the emergency department and left before their workup was complete. Patient presented back today because of worsening pain and swelling of the left foot. The left foot has the 1st and 2nd digit which has been amputated. Under the ball of the foot is a 50 cent size open lesion with necrotic tissue. He reports it is painful to ambulate. He has had some drainage and pus. There has been discoloration as well he denies any fever or chills. He has had no nausea vomiting. He denies any headache. He has known polyneuropathy. He does have pain over that left foot. Patient was seen and examined in the emergency department. His white count is up to 11.8 today. An x-ray of the foot revealed no evidence of osteomyelitis. The patient is admitted to the hospital for diabetic skin and soft tissue infection. The patient is adopted and does not know his family history. Patient History Medical History Alcoholism /alcohol abuse (Acute) Amputated great toe of left foot (Acute) Diabetes (Acute) Diabetic neuropathy (Acute) History of amputation of toe (Acute) Hypertension (Acute) Surgical History History of appendectomy (Acute) History of tonsillectomy (Acute) No history of previous surgery (Acute) Social History household members: significant other Smoking Status: Never smoker alcohol intake: current Family & Social History Social History: household members significant other Prior Living Arrangements Homeless Safety & Behavioral: Feels Safe in Current Yes Environment Been Physically Hurt or No Threatened By a Person Suicidal Ideation Description None Suicide Plan Description No Plan Tobacco & Substance use: Smoking Status Never smoker alcohol intake current alcohol intake frequency 3 or more drinks per day Substance Use Type marijuana Meds Home Medications and Allergies Home Medications Medication Instructions Recorded Confirmed Type folic acid 1 mg PO DAILY #30 tab 08/06/18 03/04/19 Rx hydrochlorothiazide 50 mg PO DAILY #30 tab 08/06/18 03/04/19 Rx losartan 50 mg PO BID #60 tab 08/06/18 03/04/19 Rx metformin [Glucophage] 500 mg PO 0800,1700 #60 tab 08/06/18 03/04/19 Rx carvedilol 12.5 mg PO BID 01/12/19 03/04/19 History clonidine HCl 0.1 mg PO BEDTIME PRN 01/15/19 03/04/19 History Allergies Allergy/AdvReac Type Severity Reaction Status Date / Time No Known Drug Allergies Allergy Verified 01/15/19 13:48 Review of Systems Review of Systems ROS Unobtainable: All systems reviewed & are unremarkable except as noted in HPI and below Exam Vital Signs (past 8 hours): - 03/04/19 10:18 03/04/19 11:14 03/04/19 11:25 Temperature 98.4 F 98.4 F Pulse Rate 112 H 88 88 Respiratory Rate 22 18 18 Blood Pressure 196/101 H 196/101 H Blood Pressure [Right Arm] 152/74 H Pulse Oximetry 99 98 98 03/04/19 12:00 03/04/19 12:30 03/04/19 13:28 Temperature Pulse Rate 100 H 93 H 102 H Respiratory Rate 16 16 18 Blood Pressure Blood Pressure [Right Arm] 145/72 H 152/81 H Pulse Oximetry 98 97 98 03/04/19 14:54 Temperature 97.5 F L Pulse Rate 97 H Respiratory Rate 20 Blood Pressure 150/88 H Blood Pressure [Right Arm] Pulse Oximetry 95 Oxygen Delivery Method Room Air Narrative Exam Narrative: Inebriated male with alcohol on his breath HEENT: Normocephalic atraumatic, extraocular muscles are intact oropharynx is clear, there is no scleral icterus Neck: Supple without adenopathy or thyromegaly Lungs: Clear to auscultation Cardiac exam: Regular rate and rhythm normal S1-S2 with a 2/6 systolic ejection murmur Abdomen: Soft nontender nondistended no evidence of hepatosplenomegaly Extremities: The left foot has the 1st 2 digits which have been amputated. There is a 2 x 2 cm open lesion under the ball of the foot on the left. There is pink granulation tissue, some minimal discoloration, entire foot is swollen. There is decreased pulses in the dorsalis pedis and posterior tibial. The right foot reveals cracked skin over the right foot. Skin exam: The buttock reveals some areas of [place] a shins but no rashes,. exam: Normal phallus, no inguinal rashes noted Neuro exam: Patient is inebriated, he does answer questions appropriately, he is awake and alert. His cranial nerves are intact strength symmetric and equal in the upper extremities, symmetric and equal in the lower extremities sensation is grossly intact reflexes are equal, gait is not assessed. Psychiatric exam: Patient has no hallucinations, tremor, or tics. No evidence any delusions. He reports no history of alcohol withdrawal. No history of DTs, or seizures. Objective Labs Result Diagrams: 03/04/19 10:30 03/04/19 10:30 Labs: Laboratory Results - last 24 hr 03/04/19 03/04/19 03/04/19 10:30 10:30 10:30 WBC 11.8 H RBC 4.22 L Hgb 14.5 Hct 41.8 MCV 98.9 MCH 34.3 H MCHC 34.7 RDW 18.1 H Plt Count 177 Neut % (Auto) 79.0 H Lymph % (Auto) 7.9 L [place] % (Auto) 12.5 Eos % (Auto) 0.0 L Baso % (Auto) 0.6 Neut # (Auto) 9300 H Lymph # (Auto) 900 L [place] # (Auto) 1500 H Eos # (Auto) 0 Baso # (Auto) 100 ESR 17 H Sodium 135 L Potassium 3.4 Chloride 91 L Carbon Dioxide 28 BUN 4 L Creatinine 0.60 L Estimated GFR > 60.0 BUN/Creatinine Ratio 6.7 Glucose 322 H Lactate 4.9 H* Calcium 8.3 L Total Bilirubin Conjugated Bilirubin Unconjugated Bilirubin AST ALT Alkaline Phosphatase C-Reactive Protein 4.0 H Total Protein Albumin Globulin Albumin/Globulin Ratio Urine Color Urine Appearance Urine pH Ur Specific [place] Urine Protein Urine Glucose (UA) Urine Ketones Urine Occult Blood Urine Nitrate Urine Bilirubin Urine Urobilinogen Ur Leukocyte Esterase Urine RBC Urine WBC Urine Bacteria Ur Culture Indicated? Urine Opiates Screen Ur Oxycodone Screen Urine Methadone Screen Ur Barbiturates Screen U Tricyclic Antidepress Ur Phencyclidine Scrn Ur Amphetamines Screen U Methamphetamines Scrn Ur MDMA Scrn (Ecstasy) U Benzodiazepines Scrn Urine Cocaine Screen U Marijuana (THC) Screen Ethyl Alcohol 03/04/19 03/04/19 03/04/19 10:30 10:58 10:58 WBC RBC Hgb Hct MCV MCH MCHC RDW Plt Count Neut % (Auto) Lymph % (Auto) [place] % (Auto) Eos % (Auto) Baso % (Auto) Neut # (Auto) Lymph # (Auto) [place] # (Auto) Eos # (Auto) Baso # (Auto) ESR Sodium Potassium Chloride Carbon Dioxide BUN Creatinine Estimated GFR BUN/Creatinine Ratio Glucose Lactate Calcium Total Bilirubin 2.1 H Conjugated Bilirubin 0.0 Unconjugated Bilirubin 1.1 AST 188 H ALT 111 H Alkaline Phosphatase 173 H C-Reactive Protein Total Protein 6.9 Albumin 3.5 Globulin 3.4 Albumin/Globulin Ratio 1.0 Urine Color Yellow Urine Appearance Clear Urine pH 5.0 Ur Specific [place] <=1.005 Urine Protein Negative Urine Glucose (UA) 2+ H Urine Ketones Trace H Urine Occult Blood 1+ H Urine Nitrate Negative Urine Bilirubin Negative Urine Urobilinogen 0.2 Ur Leukocyte Esterase Trace H Urine RBC 0-1/hpf Urine WBC 10-30/hpf H Urine Bacteria Many (>30) H Ur Culture Indicated? Specimen cultured Urine Opiates Screen Negative Ur Oxycodone Screen Negative Urine Methadone Screen Negative Ur Barbiturates Screen Negative U Tricyclic Antidepress Negative Ur Phencyclidine Scrn Negative Ur Amphetamines Screen Negative U Methamphetamines Scrn Negative Ur MDMA Scrn (Ecstasy) Negative U Benzodiazepines Scrn Negative Urine Cocaine Screen Negative U Marijuana (THC) Screen Negative Ethyl Alcohol 296 H 03/04/19 13:00 WBC RBC Hgb Hct MCV MCH MCHC RDW Plt Count Neut % (Auto) Lymph % (Auto) [place] % (Auto) Eos % (Auto) Baso % (Auto) Neut # (Auto) Lymph # (Auto) [place] # (Auto) Eos # (Auto) Baso # (Auto) ESR Sodium Potassium Chloride Carbon Dioxide BUN Creatinine Estimated GFR BUN/Creatinine Ratio Glucose Lactate 5.0 H* Calcium Total Bilirubin Conjugated Bilirubin Unconjugated Bilirubin AST ALT Alkaline Phosphatase C-Reactive Protein Total Protein Albumin Globulin Albumin/Globulin Ratio Urine Color Urine Appearance Urine pH Ur Specific [place] Urine Protein Urine Glucose (UA) Urine Ketones Urine Occult Blood Urine Nitrate Urine Bilirubin Urine Urobilinogen Ur Leukocyte Esterase Urine RBC Urine WBC Urine Bacteria Ur Culture Indicated? Urine Opiates Screen Ur Oxycodone Screen Urine Methadone Screen Ur Barbiturates Screen U Tricyclic Antidepress Ur Phencyclidine Scrn Ur Amphetamines Screen U Methamphetamines Scrn Ur MDMA Scrn (Ecstasy) U Benzodiazepines Scrn Urine Cocaine Screen U Marijuana (THC) Screen Ethyl Alcohol Assessment & Plan Assessment & Plan narrative: 1. 64-year-old male admitted to the hospital with a diabetic foot, skin and soft tissue infection. Patient with known peripheral vascular disease evidence by amputation of the 1st and 2nd digit of the left foot. He is a type 2 diabetic and is unclear whether he has been taking his medications. The patient has what looks like early osteo of the foot. X-rays at this point are negative. He is afebrile. Lactate level is elevated at 4.9. Patient will be started on IV Zosyn, and IV vancomycin. Blood cultures have been obtained. Orthopedic/podiatry consult will be obtained. Will defer further workup to include MRI of the foot until surgery has been consulted. 2. Type 2 diabetes, no complications of retinopathy gastropathy or nephropathy at this point. Patient does have peripheral neuropathy. Will hold metformin here in the hospital. Will start him on a low-dose basal bolus regimen. Will obtain a glycohemoglobin, and a fasting lipid profile. 3. Hypertension, present on admission, the patient will resume Coreg 12.5 b.i.d. in addition to losartan 50 b.i.d.. Will hold hydrochlorothiazide and clonidine at this time. 4. Acute alcohol intoxication, . patient reports he completed detox about 1 month ago. He was in detox in [facility]. Apparently he left and started drinking. He denies any history of alcohol withdrawal. However given his high alcohol level anticipate some evidence of withdrawal at some point. The patient will be placed on a CIWA protocol. Will continue to monitor him closely. 5. Code status patient indicates he is DNR. However given his elevated blood alcohol level I am concerned about his ability to understand and interpreted. He will be made a full code until he is no longer inebriated. Quality VTE Deep Vein Thrombosis/Pulmonary Embolism Present on Admission: No
[2019-03-04 15:43] LABS: Magnesium 1.9 mg/dL (1.6-2.3)
[2019-03-04] MEDS: ENOXAPARIN 40 MG/0.4 ML SYRINGE SUBCUT (16:04)
[2019-03-04] MEDS: SODIUM CHLORIDE 0.45% 1,000 ML 100 ML IV (16:04)
[2019-03-04] MEDS: MULTIVITAMIN 1 TABLET 1 TAB PO (16:04)
[2019-03-04] MEDS: PIPERACILLIN-TAZO 3.375 GM/50 ML FROZ.PIGGY IV ×2 (16:04→22:11)
[2019-03-04] MEDS: MAGNESIUM SULFATE 2 GM, FOLIC ACID 1 MG, THIAMINE 100 MG, MULTIVITAMIN 10 ML in SODIUM ... IV (16:56)
[2019-03-04] MEDS: INSULIN ASPART 100 UNIT/ML INSULN PEN SUBCUT ×2 (16:57→22:13)
[2019-03-04] MEDS: VANCOMYCIN 1,000 MG/200 ML PIGGYBACK 200 MG IV (17:00)
--- NOTE | 2019-03-04 17:22 | PM.CN ---
History of Present Illness Consult details Date Patient Seen: 03/04/19 Time Patient Seen: 17:22 Chief complaint: Lt foot pain twice size as yesterday Reason for consult: Diabetc foot ulcer left foot. History of two previous amputations L foot. Requesting provider: Frida Snow Narrative: Patient is seen at the bedside. Appears somewhat groggy but responsive to questions. Gives a history of a foot wound on the left foot that just will not heal. Cannot accurately give me the date as far as how long this has been a problem. He does have a history of at least 2 previous infections leading to amputations of the 1st and 2nd toes on that left foot. Mentions that his girlfriend wanted him to come in and have it looked at because it started to stink. Says that he does not feel like he is sick. [facility] Medical History Alcoholism /alcohol abuse (Acute) Amputated great toe of left foot (Acute) Diabetes (Acute) Diabetic neuropathy (Acute) History of amputation of toe (Acute) Hypertension (Acute) Surgical History History of appendectomy (Acute) History of tonsillectomy (Acute) No history of previous surgery (Acute) Social History household members: significant other Smoking Status: Never smoker alcohol intake: current Social History household members: significant other Smoking Status: Never smoker alcohol intake: current Meds Home Medications and Allergies Home Medications Medication Instructions Recorded Confirmed Type folic acid 1 mg PO DAILY #30 tab 08/06/18 03/04/19 Rx hydrochlorothiazide 50 mg PO DAILY #30 tab 08/06/18 03/04/19 Rx losartan 50 mg PO BID #60 tab 08/06/18 03/04/19 Rx metformin [Glucophage] 500 mg PO 0800,1700 #60 tab 08/06/18 03/04/19 Rx carvedilol 12.5 mg PO BID 01/12/19 03/04/19 History clonidine HCl 0.1 mg PO BEDTIME PRN 01/15/19 03/04/19 History Allergies Allergy/AdvReac Type Severity Reaction Status Date / Time No Known Drug Allergies Allergy Verified 01/15/19 13:48 Exam Vital Signs (past 8 hours): - 03/04/19 10:18 03/04/19 11:14 03/04/19 11:25 Temperature 98.4 F 98.4 F Pulse Rate 112 H 88 88 Respiratory Rate 22 18 18 Blood Pressure 196/101 H 196/101 H Blood Pressure [Right Arm] 152/74 H Pulse Oximetry 99 98 98 03/04/19 12:00 03/04/19 12:30 03/04/19 13:28 Temperature Pulse Rate 100 H 93 H 102 H Respiratory Rate 16 16 18 Blood Pressure Blood Pressure [Right Arm] 145/72 H 152/81 H Pulse Oximetry 98 97 98 03/04/19 14:54 03/04/19 15:00 Temperature 97.5 F L Pulse Rate 97 H Respiratory Rate 20 Blood Pressure 150/88 H Blood Pressure [Right Arm] Pulse Oximetry 95 97 Oxygen Delivery Method Room Air Extrem Other: Left foot is moderately swollen. It is pink and warm. Looks like he suffers from chronic foot and ankle edema, making palpation of pedal pulses difficult. First and 2nd toes are absent from previous amputations. He has a punched-out full-thickness ulceration on the plantar aspect of the left foot under the 1st metatarsal head. There is some dried serosanguineous drainage around it. I did not probe the wound. There is some positive malodor. No obvious ascending cellulitis. No streaking is noted. Objective Labs Result Diagrams: 03/04/19 10:30 03/04/19 10:30 Labs: Laboratory Results - last 24 hr 03/04/19 03/04/19 03/04/19 10: 10:30 10:30 WBC 11.8 H RBC 4.22 L Hgb 14.5 Hct 41.8 MCV 98.9 MCH 34.3 H MCHC 34.7 RDW 18.1 H Plt Count 177 Neut % (Auto) 79.0 H Lymph % (Auto) 7.9 L [place] % (Auto) 12.5 Eos % (Auto) 0.0 L Baso % (Auto) 0.6 Neut # (Auto) 9300 H Lymph # (Auto) 900 L [place] # (Auto) 1500 H Eos # (Auto) 0 Baso # (Auto) 100 ESR 17 H Sodium 135 L Potassium 3.4 Chloride 91 L Carbon Dioxide 28 BUN 4 L Creatinine 0.60 L Estimated GFR > 60.0 BUN/Creatinine Ratio 6.7 Glucose 322 H Lactate Calcium 8.3 L Magnesium 1.9 Total Bilirubin Conjugated Bilirubin Unconjugated Bilirubin AST ALT Alkaline Phosphatase C-Reactive Protein 4.0 H Total Protein Albumin Globulin Albumin/Globulin Ratio Urine Color Urine Appearance Urine pH Ur Specific [place] Urine Protein Urine Glucose (UA) Urine Ketones Urine Occult Blood Urine Nitrate Urine Bilirubin Urine Urobilinogen Ur Leukocyte Esterase Urine RBC Urine WBC Urine Bacteria Ur Culture Indicated? Urine Opiates Screen Ur Oxycodone Screen Urine Methadone Screen Ur Barbiturates Screen U Tricyclic Antidepress Ur Phencyclidine Scrn Ur Amphetamines Screen U Methamphetamines Scrn Ur MDMA Scrn (Ecstasy) U Benzodiazepines Scrn Urine Cocaine Screen U Marijuana (THC) Screen Ethyl Alcohol 03/04/19 03/04/19 03/04/19 10:30 10:30 10:58 WBC RBC Hgb Hct MCV MCH MCHC RDW Plt Count Neut % (Auto) Lymph % (Auto) [place] % (Auto) Eos % (Auto) Baso % (Auto) Neut # (Auto) Lymph # (Auto) [place] # (Auto) Eos # (Auto) Baso # (Auto) ESR Sodium Potassium Chloride Carbon Dioxide BUN Creatinine Estimated GFR BUN/Creatinine Ratio Glucose Lactate 4.9 H* Calcium Magnesium Total Bilirubin 2.1 H Conjugated Bilirubin 0.0 Unconjugated Bilirubin 1.1 AST 188 H ALT 111 H Alkaline Phosphatase 173 H C-Reactive Protein Total Protein 6.9 Albumin 3.5 Globulin 3.4 Albumin/Globulin Ratio 1.0 Urine Color Yellow Urine Appearance Clear Urine pH 5.0 Ur Specific [place] <=1.005 Urine Protein Negative Urine Glucose (UA) 2+ H Urine Ketones Trace H Urine Occult Blood 1+ H Urine Nitrate Negative Urine Bilirubin Negative Urine Urobilinogen 0.2 Ur Leukocyte Esterase Trace H Urine RBC 0-1/hpf Urine WBC 10-30/hpf H Urine Bacteria Many (>30) H Ur Culture Indicated? Specimen cultured Urine Opiates Screen Ur Oxycodone Screen Urine Methadone Screen Ur Barbiturates Screen U Tricyclic Antidepress Ur Phencyclidine Scrn Ur Amphetamines Screen U Methamphetamines Scrn Ur MDMA Scrn (Ecstasy) U Benzodiazepines Scrn Urine Cocaine Screen U Marijuana (THC) Screen Ethyl Alcohol 296 H 03/04/19 03/04/19 10:58 13:00 WBC RBC Hgb Hct MCV MCH MCHC RDW Plt Count Neut % (Auto) Lymph % (Auto) [place] % (Auto) Eos % (Auto) Baso % (Auto) Neut # (Auto) Lymph # (Auto) [place] # (Auto) Eos # (Auto) Baso # (Auto) ESR Sodium Potassium Chloride Carbon Dioxide BUN Creatinine Estimated GFR BUN/Creatinine Ratio Glucose Lactate 5.0 H* Calcium Magnesium Total Bilirubin Conjugated Bilirubin Unconjugated Bilirubin AST ALT Alkaline Phosphatase C-Reactive Protein Total Protein Albumin Globulin Albumin/Globulin Ratio Urine Color Urine Appearance Urine pH Ur Specific [place] Urine Protein Urine Glucose (UA) Urine Ketones Urine Occult Blood Urine Nitrate Urine Bilirubin Urine Urobilinogen Ur Leukocyte Esterase Urine RBC Urine WBC Urine Bacteria Ur Culture Indicated? Urine Opiates Screen Negative Ur Oxycodone Screen Negative Urine Methadone Screen Negative Ur Barbiturates Screen Negative U Tricyclic Antidepress Negative Ur Phencyclidine Scrn Negative Ur Amphetamines Screen Negative U Methamphetamines Scrn Negative Ur MDMA Scrn (Ecstasy) Negative U Benzodiazepines Scrn Negative Urine Cocaine Screen Negative U Marijuana (THC) Screen Negative Ethyl Alcohol Assessment & Plan Assessment & Plan narrative: Recurring and now chronic diabetic foot ulceration, sub 1st metatarsal left foot. Also history of at least 2 previous foot infections / ulcerations resulting in amputations of the 1st and 2nd toes. Infected diabetic foot ulcer. History of noncompliance diabetes and alcoholism. Plan: 1) Due to the fact the patient has suffered several previous amputations on this foot, I would not feel comfortable managing this patient here at our facility. I think he would be better served by transfer to a multidisciplinary Center that can manage both infectious disease, diabetes, and necessary surgical debridement and/or amputation. I would recommend transfer to [facility] in [place]. 2) Due to the chronic nature of this ulceration and the likelihood of underlying deeper infection, although x-rays are unremarkable an MRI might reveal further evidence of bone and/or tendon involvement. If the patient is going to be transferred promptly, within the next 24 hours, we may want to hold off on doing that MRI until that transfer is completed. If however he is going to be in-house receiving IV antibiotics for longer than 24 hours, ordering the MRI now would be helpful for further assessment. 3) I have spoken with the hospitalist, Dr. Snow, regarding this case. I have also discussed with the patient what my recommendations are regarding transfer down to [place].
--- NOTE | 2019-03-04 19:02 | PC.NURSE ---
190 kerlex dressing/wrap to left foot CDI. pt up with RN JESUSA to BR states I just don't feel good. has been mostly sleeping this shift. denies pain. states a little nausea. pt states i just want to go back to sleep and I'll be okay. S.O. remains in room. pt continues with 1:1 monitoring
[2019-03-04 19:23] LABS: Lactate (Lactic Acid) 3.5 mmol/L (0.7-2.1)
[2019-03-04 19:34] LABS: Hemoglobin A1C% w Est Avg Glu 7.6 % (4.0-6.0)
[2019-03-04 20:00] LABS: Cholesterol 156 mg/dL (140-199); HDL Cholesterol 39 mg/dL (40-60); LDL Cholesterol Calculated 90 mg/dL (<100); Triglycerides 136 mg/dL (35-150)
[2019-03-04 21:00] LABS: Reflexed Lactate in 2 Hours Y
[2019-03-04 21:47] LABS: Lactate 2HR (Lactic Acid Rflx) 3.8 mmol/L (0.7-2.1)
[2019-03-04] MEDS: LOSARTAN 50 MG TABLET PO (22:10)
[2019-03-04] MEDS: SENNOSIDES 8.6 MG TABLET 17.2 MG PO (22:10)
[2019-03-04] MEDS: DOCUSATE 100 MG CAPSULE PO (22:10)
[2019-03-04] MEDS: CARVEDILOL 12.5 MG TABLET PO (22:11)
[2019-03-04] MEDS: INSULIN GLARGINE 100 UNIT/ML 3ML PEN 10 UNIT SUBCUT (22:13)
[2019-03-04] MEDS: ACETAMINOPHEN 325 MG TABLET 650 MG PO (23:38)
[2019-03-04] MEDS: LORazepam 1 MG TABLET 2 MG PO (23:41)
--- NOTE | 2019-03-05 00:51 | PC.NURSE ---
Addendum entered by Christal Romero R.N. 03/05/19 01:39: CIWA: 4, pt reports still feeling very anxious but agitation and headache have resolved. Pt's significant other asked if pt could have chocolate milk, educated her and pt that given pt's sugars that its not advised to which both acknowledged understanding. Original Note: Shift note: Received pt from evening shift. Responded to call light and pt calling out from his room, requesting to use the bathroom but reports feeling very dizzy and weak, able to stand at edge of bed but did not produce much urine. Completed physical assessment and CIWA (score of 8), pt able to make needs known specifically requesting milk, chocolate milk, and ice cream stating that he feels very anxious and wants comfort food. Pt also reported that he feels like I might be detoxing and has a moderate headache and visible tremors. Medicated pt for headache 650mg PO APAP and per CIWA protocol with 1mg PO Ativan. VS demonstrated hypertension (147/79) and tachycardia (99), pt was not diaphoretic but concerned he might have a fever (temp 94.8). Kerlix dressing to left foot with serosang drainage present. Seizure pads and suction in place, bed alarm on and functioning. Pt is a high fall risk, call light in reach. Pt within view of nursing station, will continue to monitor.
[2019-03-05] MEDS: VANCOMYCIN 1,000 MG/200 ML PIGGYBACK 200 MG IV ×2 (01:04→08:57)
[2019-03-05] MEDS: PIPERACILLIN-TAZO 3.375 GM/50 ML FROZ.PIGGY IV ×3 (04:02→16:41)
[2019-03-05 04:05] VITALS: BP 142/69; PULSE 97; RESP 18; TEMP 37.2; O2SAT 95
[2019-03-05] MEDS: SODIUM CHLORIDE 0.9% 1,000 ML 1000 ML IV (04:24)
[2019-03-05 07:05] LABS: Add Manual Diff / Slide Review NO; Basophils Absolute Auto 100 /uL (0-100); Basophils Percent Auto 0.8 % (0-2); Eosinophils Absolute Auto 0 /uL (0-450); Eosinophils Percent Auto 0.1 % (2-4); Hematocrit 37.1 % (41-53); Hemoglobin 12.9 g/dL (13.5-17.5); Lymphocytes Absolute Auto 1000 /uL (1100-4500); Lymphocytes Percent Auto 10.1 % (25-40); Mean Corpuscular HGB Conc 34.8 % (30-36); Mean Corpuscular Hemoglobin 34.6 PG (26-34); Mean Corpuscular Volume 99.7 fL (80-100); Monocytes Absolute Auto 1100 /uL (0-900); Neutrophils Absolute Auto 7700 /uL (1500-7000); Platelet Count 149 X10^3/uL (150-400); Red Blood Cell Count 3.72 X10^6/uL (4.5-5.9); Red Cell Distribution Width 18.4 % (11.6-14.8); White Blood Cell Count 9.8 X10^3/uL (4.5-11.0)
[2019-03-05 07:11] LABS: Blood Urea Nitrogen 6 mg/dL (9-20); Calcium 7.8 mg/dL (8.4-10.2); Carbon Dioxide 28 mmol/L (22-32); Chloride 100 mmol/L (98-107); Estimated Glomerular Filt Rate > 60.0 mL/min (>60); Glucose 195 mg/dL (80-110); HEMOLYSIS < 15 (0-50); Potassium 3.4 mmol/L (3.4-5.1); Sodium 134 mmol/L (137-145)
[2019-03-05 08:00] VITALS: BP 152/91; PULSE 90; RESP 18; TEMP 37.2; O2SAT 97
[2019-03-05] MEDS: INSULIN ASPART 100 UNIT/ML INSULN PEN SUBCUT ×3 (08:52→16:43)
[2019-03-05] MEDS: DOCUSATE 100 MG CAPSULE PO (08:55)
[2019-03-05] MEDS: CARVEDILOL 12.5 MG TABLET PO (08:55)
[2019-03-05] MEDS: FOLIC ACID 1 MG TABLET PO (08:56)
[2019-03-05] MEDS: ENOXAPARIN 40 MG/0.4 ML SYRINGE SUBCUT (08:56)
[2019-03-05] MEDS: LOSARTAN 50 MG TABLET PO (08:56)
[2019-03-05] MEDS: MULTIVITAMIN 1 TABLET 1 TAB PO (08:57)
[2019-03-05] MEDS: THIAMINE 100 MG TABLET PO (08:57)
[2019-03-05] MEDS: LORazepam 1 MG TABLET PO (08:59)
[2019-03-05] MEDS: ACETAMINOPHEN 325 MG TABLET 650 MG PO (11:08)
--- NOTE | 2019-03-05 11:11 | PC.NURSE ---
1100 patient up to bathroom for bm. Ambulating with stand by assist. C/O pain in LLE, tylenol given. Would like ice cream, given sugar free jello at this time and educated about his glucose levels.
--- NOTE | 2019-03-05 13:05 | OT.IP.TRT ---
Occupational Therapy Treatment Note M3 OT- IP Subjective and Pain Start: 03/05/19 13:06 Freq: Status: Active Protocol: Document 03/05/19 13:06 PJM (Rec: 03/05/19 13:10 PJM [id number]) OT- Subjective Occupational Therapy Visit Type Type Administrative Note Visit Start Time 13:05 Notes OT referral received. MD requests HOLD on OT assessment today as pt will need surgical intervention for L foot diabetic ulcer infection. Pt may transfer to another facility for higher level of care. Will await post op re- order.
--- NOTE | 2019-03-05 13:20 | PT.IPTN ---
Physical Therapy Treatment Note M3 PT-IP Subjective Start: 03/05/19 13:14 Freq: NEEDED Status: Active Protocol: Document 03/05/19 13:14 AB (Rec: 03/05/19 13:20 AB [id number]) Subjective Physical Therapy Visit Type Notes Received PT eval order but Pt is pending transfer to another hospital for higher level of care. Spoke with Dr. Snow and stated to d/c PT eval and that Pt is pending transfer to another facility depending on bed availability but if pt stays in the hospital, pt will still require surgery and PT eval will be reordered.
[2019-03-05 15:00] VITALS: O2SAT 96
[2019-03-05] MEDS: OXYCODONE IR 10 MG TABLET PO (15:06)
[2019-03-05 16:18] VITALS: BMI 32.3
--- NOTE | 2019-03-05 16:24 | DIET.PN ---
Dietary Progress Note Assessment: 64y M referred to nutrition for DM2 education r/t foot ulcer and etoh dependence. Pt has prior hx of HTN, neuropathy, amputation 2 L toes. BG before lunch was 317. Pt reports wanting comfort foods, repeatedly asking for ice cream. Pt ate 100% SF pudding, SF ice cream and bowl chicken noodle soup for lunch, did not eat turkey sandwich. Pt's partner said she wouldn't lie that he has not been taking any medications for past few weeks including for DM. Pt reports usual intake is to wake, drink beer, sleep, wake, drink beer, repeat, for days or months at a time. During these cycles he eats one meal (omlet, [employer] food, or burger) around once every three days. Pt and partner were living on run down boat, however, that was taken away from them by attraction attendant yesterday, so are currently homeless. Plan is to go to [employer]. Pt trade is [employer]. Discussed body's ability to heal only c blood sugars <200 and adequate intake of PRO and vitamins/minerals. Discussed beer's effect on BG and nutrient absorption/competition. Pt partner purchased large quantity of juice from [employer] to bring to pt room. Educated them on limiting juice to 4oz per day for non-diabetic and no juice for diabetes unless tomato. Showed pt and partner menu, that carbs were listed, and educated on the carb load of various food categories. Pt is currently food insecure and DM medication non-compliant. Discussed this reality, food and community resources and possibility of BKA if nothing changes. HT: 187.9cm WT: 114.2kg BMI: 32.3 Labs: BG 195-322, A1c 7.6 (H), CRP 4 (H) Nutrition Diagnosis: 1. Inadequate protein-energy intake r/t replacement of food c etoh aeb pt stating when drinking he eats one meal every three days, unhealing DM related foot ulcer. 2. Intake of types of carbohydrate inconsistent with needs r/t etoh dependence c DM2 dx aeb BG range 195-322, requesting juice and ice cream, hospital meals devoid of complex carbohydrates. Interventions: 1. recc ONS Elmer bid to support wound healing, consider ONS glucerna if PRO goals not being met. 2. continue DM education as pt and partner are receptive c complex barriers. Encourage healthy meals and med compliance in hospital and making similar choices upon discharge. Diet Order: Consistent Carb EER: 2500kcal, 125g PRO (1.1g/kg wound), 4L fluid (35cc/kg active infection) Monitoring/Evaluations: tight glucose control <200 for collagen formation, if PRO intake <75% EER give ONS glucerna bid, labs, additional education and food resources
[2019-03-05 16:36] VITALS: BP 101/59; PULSE 96; RESP 20; TEMP 36.9; O2SAT 98
[2019-03-05] MEDS: SODIUM CHLORIDE 0.45% 1,000 ML 100 ML IV (17:11)
--- NOTE | 2019-03-05 17:18 | P.PN_ITS ---
Subjective Subjective Date Patient Seen: 03/05/19 Interval history: Patient reports continued pain under the left foot. He has had continued drainage. He has some breakdown of the right great toe as well. Appreciate Dr. Vega's evaluation last evening. Suspect patient has underlying osteomyelitis and will need definitive surgery. Recommendations have been made to transfer the patient to [facility]. Attempts have been made to transfer the patient to higher level of care and transfer is still underway. The patient is no longer febrile. T-max has been 99.8. He had some minimal loose stools earlier today. Patient has a mild tremor but no evidence of acute alcohol withdrawal. Exam Vital Signs (past 8 hours): - 03/05/19 16:36 Temperature 98.4 F Pulse Rate 96 H Respiratory Rate 20 Blood Pressure 101/59 L Pulse Oximetry 98 Oxygen Delivery Method Room Air Oxygen Flow Rate 0 Narrative Exam Narrative: Ill-appearing male lying in bed in no obvious distress Lungs: Clear to auscultation Cardiac exam: Regular rate and rhythm normal S1-S2 Abdomen: Soft nontender nondistended Extremities: Left foot 1st 2 digits amputated, underneath the 1st metatarsal a 3 x 3 cm open lesion which is draining, the area appears to be contiguous with bone. Right foot right great toe shows a cracked open skin. No areas of erythema or warmth. There is no edema. Objective Labs Result Diagrams: 03/05/19 06:38 03/05/19 06:38 Labs: Laboratory Results - last 24 hr 03/04/19 03/04/19 03/04/19 18:55 18:55 18:55 WBC RBC Hgb Hct MCV MCH MCHC RDW Plt Count Neut % (Auto) Lymph % (Auto) [place] % (Auto) Eos % (Auto) Baso % (Auto) Neut # (Auto) Lymph # (Auto) [place] # (Auto) Eos # (Auto) Baso # (Auto) Sodium Potassium Chloride Carbon Dioxide BUN Creatinine Estimated GFR BUN/Creatinine Ratio Glucose Hemoglobin A1c 7.6 H Lactate 3.5 H Calcium Triglycerides 136 Cholesterol 156 LDL Cholesterol, Calc 90 HDL Cholesterol 39 L 03/04/19 03/05/19 03/05/19 21:20 06:38 06:38 WBC 9.8 RBC 3.72 L Hgb 12.9 L Hct 37.1 L MCV 99.7 MCH 34.6 H MCHC 34.8 RDW 18.4 H Plt Count 149 L Neut % (Auto) 78.0 H Lymph % (Auto) 10.1 L [place] % (Auto) 11.0 Eos % (Auto) 0.1 L Baso % (Auto) 0.8 Neut # (Auto) 7700 H Lymph # (Auto) 1000 L [place] # (Auto) 1100 H Eos # (Auto) 0 Baso # (Auto) 100 Sodium 134 L Potassium 3.4 Chloride 100 Carbon Dioxide 28 BUN 6 L Creatinine 0.50 L Estimated GFR > 60.0 BUN/Creatinine Ratio 12.0 Glucose 195 H D Hemoglobin A1c Lactate 3.8 H Calcium 7.8 L Triglycerides Cholesterol LDL Cholesterol, Calc HDL Cholesterol Assessment & Plan Assessment & Plan narrative: Impression 1. 64-year-old male admitted to the hospital with diabetic foot infection. Suspect he has underlying probable osteomyelitis. Patient will continue on Zosyn. Arrangements are underway for definitive surgical treatment. Patient will require transfer to a higher level of care to accomplish this goal. 2. Type 2 diabetes poorly controlled, will continue with basal bolus insulin. Will increase insulin to 20 units at night plus bolus dosing. 3. Hypertension, will continue usual home medication 4. Alcohol dependence without evidence of alcohol withdrawal. The patient has a [facility] protocol written in the event he develops evidence to suggest DTs. 5. Hyponatremia will continue to monitor Plan will continue to pursue transfer to a higher level care. Quality VTE Deep Vein Thrombosis/Pulmonary Embolism Present on Admission: No
[2019-03-05 18:04] LABS: Lactate (Lactic Acid) 4.6 mmol/L (0.7-2.1)
--- NOTE | 2019-03-05 18:52 | P.DS_ITS ---
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 He states he was seen in the emergency department they dressed the wound and told him to keep it dry. He and his girlfriend live on his boat. He states it has been raining for the past 2 weeks. He has had water on the foot for that entire time. Yesterday he noticed swelling of the foot with pain under the ball of the foot. He was seen and evaluated in the emergency department and left before their workup was complete. Patient presented back today because of worsening pain and swelling of the left foot. The left foot has the 1st and 2nd digit which has been amputated. Under the ball of the foot is a 50 cent size open lesion with necrotic tissue. He reports it is painful to ambulate. He has had some drainage and pus. There has been discoloration as well he denies any fever or chills. He has had no nausea vomiting. He denies any headache. He has known polyneuropathy. He does have pain over that left foot. Patient was seen and examined in the emergency department. His white count is up to 11.8 today. An x-ray of the foot revealed no evidence of osteomyelitis. The patient is admitted to the hospital for diabetic skin and soft tissue infection. The patient is adopted and does not know his family history. Discharge Providers Provider Date of admission: 03/04/19 12:50 Discharge Date: 03/05/19 Primary care physician: Alvaro Cho MD Consults: 03/04/19 14:50 Consult to Dietitian, Adult Routine Comment: Reason For Exam: diabetic education Consult to Occupational Therapy Evaluate & Treat Comment: Physician Instructions: Evaluate and treat Consult to Physical Therapy Evaluate & Treat Comment: Physician Instructions: Evaluate and Treat 03/04/19 14:51 Consult to Preschool Disability Teacher Routine Comment: 03/04/19 14:57 Consult to Dietitian, Adult Routine Comment: Reason For Exam: alcoholic Discharge provider: Frida Snow MD Summary Hospital Course Discharge Diagnosis: 1. Diabetic foot ulcer with probable osteomyelitis 2. Type 2 diabetes 3. Hypertension 4. Alcohol dependence Hospital Course: Patient was admitted to the hospital with a chronically draining left foot ulcer. He was started on IV Zosyn. Patient had an elevated lactate during his hospital stay which remained elevated. He previously was on metformin which was discontinued. He was treated with IV fluids and antibiotics. Podiatry consultation was obtained. Patient was seen by Dr. Vega. He recommended transfer to a higher level of care S patient would likely require forefoot amputation or more extensive surgery that he could perform here. The patient had minimal diarrhea. He continued to complain of pain in the foot. It he continued to have drainage of the left foot. He was deemed appropriate for transfer. Arrangements were made to transfer him to [facility] for vascular surgery, Orthopedics, Podiatry/infectious disease consultation. I discussed case with the hospitalist who graciously accepted the patient in transfer. Patient did have an x-ray obtained here which was negative for osteomyelitis. Status at Discharge Cognitive/behavioral status at discharge: oriented Functional status at discharge: independent ambulation Overall status at discharge: patient is back to baseline Time Spent with Patient Time spent: Less than 30 minutes Exam Vital Signs (past 8 hours): - 03/05/19 15:00 03/05/19 16:36 Temperature 98.4 F Pulse Rate 96 H Respiratory Rate 20 Blood Pressure 101/59 L Pulse Oximetry 96 98 Oxygen Delivery Method Room Air Oxygen Flow Rate 0 Narrative Exam Narrative: Pleasant male in no obvious distress Lungs: Clear to auscultation Cardiac exam: Regular rate and rhythm normal S1-S2 Abdomen: Soft nontender nondistended Extremities: Left with an ulcer under the base of the 1st metatarsal. It is draining and losing discharge Objective Labs Result Diagrams: 03/05/19 06:38 03/05/19 06:38 Labs: Laboratory Results - last 24 hr 03/04/19 03/04/19 03/04/19 18:55 18:55 18:55 WBC RBC Hgb Hct MCV MCH MCHC RDW Plt Count Neut % (Auto) Lymph % (Auto) [place] % (Auto) Eos % (Auto) Baso % (Auto) Neut # (Auto) Lymph # (Auto) [place] # (Auto) Eos # (Auto) Baso # (Auto) Sodium Potassium Chloride Carbon Dioxide BUN Creatinine Estimated GFR BUN/Creatinine Ratio Glucose Hemoglobin A1c 7.6 H Lactate 3.5 H Calcium Triglycerides 136 Cholesterol 156 LDL Cholesterol, Calc 90 HDL Cholesterol 39 L 03/04/19 03/05/19 03/05/19 21:20 06:38 06:38 WBC 9.8 RBC 3.72 L Hgb 12.9 L Hct 37.1 L MCV 99.7 MCH 34.6 H MCHC 34.8 RDW 18.4 H Plt Count 149 L Neut % (Auto) 78.0 H Lymph % (Auto) 10.1 L [place] % (Auto) 11.0 Eos % (Auto) 0.1 L Baso % (Auto) 0.8 Neut # (Auto) 7700 H Lymph # (Auto) 1000 L [place] # (Auto) 1100 H Eos # (Auto) 0 Baso # (Auto) 100 Sodium 134 L Potassium 3.4 Chloride 100 Carbon Dioxide 28 BUN 6 L Creatinine 0.50 L Estimated GFR > 60.0 BUN/Creatinine Ratio 12.0 Glucose 195 H D Hemoglobin A1c Lactate 3.8 H Calcium 7.8 L Triglycerides Cholesterol LDL Cholesterol, Calc HDL Cholesterol 03/05/19 17:36 WBC RBC Hgb Hct MCV MCH MCHC RDW Plt Count Neut % (Auto) Lymph % (Auto) [place] % (Auto) Eos % (Auto) Baso % (Auto) Neut # (Auto) Lymph # (Auto) [place] # (Auto) Eos # (Auto) Baso # (Auto) Sodium Potassium Chloride Carbon Dioxide BUN Creatinine Estimated GFR BUN/Creatinine Ratio Glucose Hemoglobin A1c Lactate 4.6 H* Calcium Triglycerides Cholesterol LDL Cholesterol, Calc HDL Cholesterol Discharge Plan Discharge Plan [facility] Transfer to: [facility] Under care of provider: Hospitalists Discharge Med Rec/Prescriptions Prescriptions: New multivitamin [Tab-A-Andrea] Tablet 1 tab PO DAILY 5 Days RF: 0 losartan 50 mg Tablet 50 mg PO BID 5 Days Qty: 10 RF: 0 acetaminophen 325 mg Tablet 650 mg PO Q6HR PRN (Reason: As Needed For Fever/Mild Pain) 5 Days RF: 0 carvedilol [Coreg] 12.5 mg Tablet 12.5 mg PO BID 5 Days Qty: 10 RF: 0 naloxone 0.4 mg/mL Solution 0.2 mg IV Q2MIN PRN (Reason: Opiate Reversal) 5 Days RF: 0 magnesium hydroxide [Milk of Magnesia] 400 mg/5 mL Suspension 30 ml PO DAILY PRN (Reason: Constipation) 5 Days RF: 0 bisacodyl 10 mg Suppository 10 mg IN DAILY PRN (Reason: Constipation) 5 Days RF: 0 docusate sodium [DOK] 100 mg Capsule 100 mg PO BID Qty: 5 RF: 0 folic acid 1 mg Tablet 1 mg PO DAILY 5 Days RF: 0 lorazepam 1 mg Tablet 0 mg PO CIWAPRN PRN (Reason: Alcohol Withdrawal) Qty: 5 RF: 0 enoxaparin [Lovenox] 40 mg/0.4 mL Syringe 40 mg subcut DAILY 5 Days RF: 0 dextrose 50 % in water (D50W) Syringe 25 gm IV PRN PRN (Reason: Hypoglycemia) 5 Days RF: 0 Novolog Flexpen U-100 Insulin 100 unit/mL (3 mL) Insulin Pen 0 unit subcut ACHS 4 Days RF: 0 Lantus Solostar U-100 Insulin 100 unit/mL (3 mL) Insulin Pen 20 unit subcut BEDTIME 4 Days RF: 0 morphine 2 mg/mL Syringe 2 mg IV Q4HR PRN (Reason: Pain, Moderate (4-6)) Qty: 5 RF: 0 sennosides [senna] 8.6 mg Tablet 17.2 mg PO BEDTIME Qty: 5 RF: 0 thiamine HCl (vitamin B1) [Vitamin B-1] 100 mg Tablet 100 mg PO DAILY 5 Days RF: 0 Zosyn in dextrose (iso-osm) 3.375 gram/50 mL Piggyback 3.375 gm IV Q6H 5 Days RF: 0 oxycodone 10 mg Tablet 10 mg PO Q6HR PRN (Reason: Pain, Severe (7-10)) 5 Days RF: 0 vancomycin-water inject (PEG) 1 gram/200 mL Piggyback 1,000 mg IV Q8H 5 Days Qty: 3000 RF: 0 Continued clonidine HCl 0.1 mg tablet 0.1 mg PO BEDTIME PRN (Reason: Anxiety) RF: 0 folic acid 1 mg Tablet 1 mg PO DAILY Qty: 30 RF: 0 losartan 50 mg Tablet 50 mg PO BID Qty: 60 RF: 0 carvedilol 12.5 mg tablet 12.5 mg PO BID RF: 0 Discontinued metformin [Glucophage] 500 mg Tablet 500 mg PO 0800,1700 Qty: 60 RF: 0 hydrochlorothiazide 50 mg tablet 50 mg PO DAILY Qty: 30 RF: 0 Discharge Orders: Discharge (Order); Ordered 03/05/19 Ordered By: Frida Snow Provider Discharge Instructions Diet: Carb-consistent/Diabetic, Low-sodium and Low-cholesterol Liquid consistency: Normal/Thin Food texture: Regular Activity: Non weight-bearing on the left foot Discharge Data Primary Care Provider: Alvaro Cho Quality VTE Deep Vein Thrombosis/Pulmonary Embolism Present on Admission: No
[2019-03-05 19:20] LABS: Vancomycin Trough < 5.0 ug/mL (10-20)
[2019-03-05 19:37] VITALS: BP 105/55; PULSE 95; RESP 18; TEMP 37.2
[2019-03-05 19:38] LABS: Reflexed Lactate in 2 Hours Y
[2019-03-05 20:17] LABS: Lactate 2HR (Lactic Acid Rflx) 5.2 mmol/L (0.7-2.1)
--- NOTE | 2019-03-05 20:28 | PC.NURSE ---
report 2024 pt DC'd via BLS at 2009. VSS. IV saline locked. Report called at 2024.
== END 2019-03-05 20:10 | disposition short-term general hospital (02) | DRG 638 ==
LOC: ED 12:50 → AC 12:51
PROVIDERS: Admitting Provider Internal Medicine; Emergency Provider Emergency Medicine; PCP Family Medicine; Visit Provider Internal Medicine
DX: E11.621 Type 2 diabetes mellitus with foot ulcer (principal); L97.528 Non-pressure chronic ulcer of other part of left foot with other specified severity; M86.8X7 Other osteomyelitis, ankle and foot; E87.1 Hypo-osmolality and hyponatremia; E11.42 Type 2 diabetes mellitus with diabetic polyneuropathy; E11.69 Type 2 diabetes mellitus with other specified complication; E11.51 Type 2 diabetes mellitus with diabetic peripheral angiopathy without gangrene; F10.220 Alcohol dependence with intoxication, uncomplicated; I10 Essential (primary) hypertension; Y90.8 Blood alcohol level of 240 mg/100 ml or more; Z89.422 Acquired absence of other left toe(s); Z79.84 Long term (current) use of oral hypoglycemic drugs
CPT/HCPCS: 36415; 36591; 73630; 80048; 80061; 80076; 80202; 80305; 80320; 81001; 82962; 83036; 83605; 83735; 85025; 85651; 86140; 87040; 87070; 87077; 87086; 87147; 87186; 87205; 96365; 96375; 99282; 99284; J1650; J1885; J1956; J2543; J3475; J7050

== ENCOUNTER 2019-04-19 10:22 | Emergency (ER) | payer OTHER, MEDICAID, SELFPAY ==
[2019-03-04 14:06] VITALS: BMI 32.5
[2019-04-19 10:31] VITALS: BP 150/54; PULSE 88; RESP 20; TEMP 36.6; O2SAT 99; BMI 32.1
--- NOTE | 2019-04-19 12:43 | PC.NURSE ---
Patient presents with dirty partial dressing to left foot. Requesting dressing change. Culture obtained from puss along post op incision. Dressing changed with non stick guaze and bulky kerlex. Patient requested looking at other foot for some areas of pain. Two small abrasions noted to lateral aspect of right big toe. Non stick dressing and bulky gauze applied over area and new socks provided. Pt denies fevers or chills. Do not appreciate any streaking around any of the areas.
[2019-04-19 13:05] LABS: Add Manual Diff / Slide Review NO; Basophils Absolute Auto 100 /uL (0-100); Basophils Percent Auto 0.7 % (0-2); Eosinophils Absolute Auto 100 /uL (0-450); Eosinophils Percent Auto 0.7 % (2-4); Hematocrit 43.6 % (41-53); Hemoglobin 14.8 g/dL (13.5-17.5); Lymphocytes Absolute Auto 2200 /uL (1100-4500); Lymphocytes Percent Auto 23.9 % (25-40); Mean Corpuscular Hemoglobin 33.7 PG (26-34); Mean Corpuscular Volume 99.1 fL (80-100); Monocytes Absolute Auto 900 /uL (0-900); Monocytes Percent Auto 9.9 % (3-14); Neutrophils Absolute Auto 6000 /uL (1500-7000); Neutrophils Percent Auto 64.8 % (50-75); Platelet Count 249 X10^3/uL (150-400); Red Cell Distribution Width 13.2 % (11.6-14.8); White Blood Cell Count 9.2 X10^3/uL (4.5-11.0)
[2019-04-19 13:15] LABS: Lactate (Lactic Acid) 3.4 mmol/L (0.7-2.1)
[2019-04-19 13:17] VITALS: BP 134/56; PULSE 83; RESP 16; O2SAT 100
[2019-04-19 13:19] LABS: Alanine Aminotransferase 16 IU/L (<50); Albumin 4.1 g/dL (3.5-5.0); Albumin Globulin Ratio 1.2 (1.0-2.8); Alkaline Phosphatase 89 U/L (38-126); Aspartate Aminotransferase 34 IU/L (17-59); BUN Creatinine Ratio 11.4 (6-22); Bilirubin Total 0.6 mg/dL (0.2-1.3); Blood Urea Nitrogen 8 mg/dL (9-20); Calcium 9.5 mg/dL (8.4-10.2); Carbon Dioxide 30 mmol/L (22-32); Chloride 101 mmol/L (98-107); Estimated Glomerular Filt Rate > 60.0 mL/min (>60); Ethanol (ETOH) 216 mg/dL; Globulin 3.3 g/dL (1.7-4.1); Glucose 137 mg/dL (80-110); HEMOLYSIS < 15 (0-50); Potassium 4.5 mmol/L (3.4-5.1); Sodium 143 mmol/L (137-145); Total Protein 7.4 g/dL (6.3-8.2)
[2019-04-19 13:36] LABS: Procalcitonin 0.06 ng/mL (<0.5)
[2019-04-19] MEDS: SODIUM CHLORIDE 0.9% 1,000 ML 1000 ML IV ×2 (13:59→15:40)
[2019-04-19 14:50] VITALS: BP 164/72; PULSE 84; RESP 16; O2SAT 96
[2019-04-19 15:00] LABS: Reflexed Lactate in 2 Hours Y
--- NOTE | 2019-04-19 15:26 | PC.NURSE ---
1526 Upon starting second liter
--- NOTE | 2019-04-19 15:26 | PC.NURSE ---
Upon starting NS for patient he states I don't know how to tell ya this but I do not have anywhere to stay tonight. I might have somewhere to stay in [place] but not if i get there too late Explained to patient that we will not be able to keep him in the ER and he doesn't meet admission criteria. explained the timeline to patient. What if I just leave right now explained patient would have to sign out AMA, as we are not done with his exam. Patient agrees to wait to talk to provider. Provider aware of patients concerns.
--- NOTE | 2019-04-19 15:59 | PC.NURSE ---
Went to check on pt, pt gone. IV catheter intact lying on bedside tray. Registration supervisor front confirmed that pt left. Mari Huff NP aware. Per PARTICLE BOARD SUPERVISOR pt left AMA.
--- NOTE | 2019-04-19 16:45 | ED_ITS ---
HPI - Recheck/Abnormal Lab/Rx <Mari Huff, [employer] - Last Filed: 04/19/19 16:59> General Chief Complaint: Recheck/Abnormal Lab/Rx Stated Complaint: Wound care for left foot Time Seen by Provider: 04/19/19 11:59 Source: patient Mode of arrival: Ambulatory Limitations: no limitations History of Present Illness HPI narrative: The patient is a 64-year-old male nonsmoker alcoholic well known to this department who presents for chief complaint of needing wound care for his left foot. He states that he had part of his foot amputated at [facility] and was discharged to [facility] in [facility]. He presents to the emergency department requesting a dressing change as [facility] and does not know under changes dressing. He states he scratched off. He was admitted to [facility] from March 05 to March 18. He states that he [facility] against medical advice a few days ago. When asked why he states ?it's complicated.When [facility] was contacted for records, they state that the patient left against medical advice. Records for never received from his [facility] stay, but his discharge summary was obtained from [facility]. He denies any fevers nausea vomiting or diarrhea. He admits to drinking alcohol last night. He denies any chest pain or shortness of breath. He states that he is taking an antibiotic, but he is not sure what. He states that he has an appointment with his PCP in [place] for Saturday, but that he missed his wound care appointment. Related Data Home Medications Medication Instructions Recorded Confirmed carvedilol 12.5 mg PO BID 01/12/19 03/04/19 clonidine HCl 0.1 mg PO BEDTIME PRN 01/15/19 03/04/19 Previous Rx's Medication Instructions Recorded folic acid 1 mg PO DAILY #30 tab 08/06/18 losartan 50 mg PO BID #60 tab 08/06/18 docusate sodium [DOK] 100 mg PO BID #5 cap 03/05/19 lorazepam 0 mg PO CIWAPRN PRN #5 tab 03/05/19 morphine 2 mg IV Q4HR PRN #5 ml 03/05/19 sennosides [senna] 17.2 mg PO BEDTIME #5 tab 03/05/19 Allergies Allergy/AdvReac Type Severity Reaction Status Date / Time No Known Drug Allergies Allergy Verified 01/15/19 13:48 Review of Systems <MARTHA Whittington - Last Filed: 04/19/19 16:59> Review of Systems Narrative: GENERAL: Denies chills, fatigue, malaise, fever, sweats. HEENT: Denies sinus pain, ear pain, sore throat, difficulty swallowing, dizziness. RESPIRATORY: Denies dyspnea, cough, wheezing, hemoptysis, sputum. CARDIOVASCULAR: Denies chest pain, palpitations, orthopnea, edema, GASTROINTESTINAL: Denies nausea, vomiting, abdominal pain, diarrhea, constipation, melena. : Denies dysuria, frequency, incontinence, hematuria, urinary retention. MUSCULOSKELETAL: See HPI SKIN: See HPI NEUROLOGIC: Denies weakness, headache, numbness, change in speech, confusion, seizures, incoordination. PSYCHIATRIC: No concerning psychosocial issues. 12 point review of systems is negative except for those stated above Patient History <MARTHA Whittington - Last Filed: 04/19/19 16:59> Medical History Alcoholism /alcohol abuse (Acute) Amputated great toe of left foot (Acute) Diabetes (Acute) Diabetic neuropathy (Acute) History of amputation of toe (Acute) Hypertension (Acute) Surgical History History of appendectomy (Acute) History of tonsillectomy (Acute) No history of previous surgery (Acute) Social History household members: significant other Smoking Status: Never smoker alcohol intake: current alcohol intake frequency: 3 or more drinks per day Alcohol type: beer Substance Use Type: marijuana Exam <MARTHA Whittington - Last Filed: 04/19/19 16:59> Narrative Exam Narrative: GENERAL: Chronically ill unkempt obese male HEAD: Atraumatic. Normocephalic. No temporal or scalp tenderness. EYES: Pupils equal round and reactive. Extraocular motions intact. No scleral icterus. No injection or drainage. ENT: Nose without bleeding, purulent drainage or septal hematoma. Throat without erythema, tonsillar hypertrophy or exudate. Uvula midline. Airway patent. NECK: Trachea midline. No JVD or lymphadenopathy. Supple, nontender, no meningeal signs. CARDIOVASCULAR: Regular rate and rhythm RESPIRATORY: Clear to auscultation. Breath sounds equal bilaterally. No wheezes, rales, or rhonchi. No cough. No increased respiratory effort. No accessory muscle use. GASTROINTESTINAL: Abdomen soft, non-tender, nondistended. No hepato- splenomegaly, or palpable masses. No guarding. EXTREMITIES: Left foot: Left transmetatarsal amputation noted. A 3 cm open wound at surgical site and dorsal aspect of foot with some purulence drainage noted. No gross extending erythema. Amputation site is warm and pink. From wound. No streaking around postoperative wound. BACK: Nontender without deformity or crepitance. No flank tenderness. NEURO: AOx3. SKIN: See extremity exam Initial Vital Signs Initial Vital Signs: Vital Signs Temperature 97.9 F 04/19/19 10:31 Pulse Rate 88 04/19/19 10:31 Respiratory Rate 20 04/19/19 10:31 Blood Pressure 150/54 H 04/19/19 10:31 Pulse Oximetry 99 04/19/19 10:31 <Brit Cervantes MD - Last Filed: 04/19/19 17:03> Initial Vital Signs Initial Vital Signs: Vital Signs Temperature 97.9 F 04/19/19 10:31 Pulse Rate 88 04/19/19 10:31 Respiratory Rate 20 04/19/19 10:31 Blood Pressure 150/54 H 04/19/19 10:31 Pulse Oximetry 99 04/19/19 10:31 Scores <MARTHA Whittington - Last Filed: 04/19/19 16:59> GCS Pancho coma scale eye opening: Spontaneous Pancho coma scale verbal response: Orientated Pancho coma scale motor response: Obey commands [place] coma scale total score: 15 Course <MARTHA Whittington - Last Filed: 04/19/19 16:59> Orders Ordered: ED Orders 04/19/19 12:45 Comprehensive Metabolic Panel Stat Ethanol (ETOH) Stat 04/19/19 12:55 Complete Blood Count AUTO DIFF Stat Lactate (Lactic Acid) Stat Procalcitonin Stat 04/19/19 13:01 Wound Culture and Gram Stain Stat Discontinued Medications Sodium Chloride (Normal Saline 0.9%) 1,000 mls @ 1,000 mls/hr IV BOLUS ONE Stop: 04/19/19 14:25 Last Infusion: 04/19/19 15:26 Dose: 0 mls/hr Documented by: Admin: 04/19/19 13:59 Dose: 1,000 mls/hr Documented by: MARYAN Sodium Chloride (Normal Saline 0.9%) 1,000 mls @ 1,000 mls/hr IV BOLUS ONE Stop: 04/19/19 14:26 Last Infusion: 04/19/19 16:05 Dose: 1,000 mls/hr Documented by: Admin: 04/19/19 15:40 Dose: 1,000 mls/hr Documented by: MARYAN Vital Signs Vital signs: Vital Signs - 8 hr 04/19/19 10:31 04/19/19 13:17 04/19/19 14:50 Temperature 97.9 F Pulse Rate 88 83 84 Respiratory Rate 20 16 16 Blood Pressure 150/54 H Blood Pressure [Right Arm] 134/56 L 164/72 H Pulse Oximetry 99 100 96 <Brit Cervantes MD - Last Filed: 04/19/19 17:03> Orders Ordered: ED Orders 04/19/19 12:45 Comprehensive Metabolic Panel Stat Ethanol (ETOH) Stat 04/19/19 12:55 Complete Blood Count AUTO DIFF Stat Lactate (Lactic Acid) Stat Procalcitonin Stat 04/19/19 13:01 Wound Culture and Gram Stain Stat Discontinued Medications Sodium Chloride (Normal Saline 0.9%) 1,000 mls @ 1,000 mls/hr IV BOLUS ONE Stop: 04/19/19 14:25 Last Infusion: 04/19/19 15:26 Dose: 0 mls/hr Documented by: Admin: 04/19/19 13:59 Dose: 1,000 mls/hr Documented by: MARYAN Sodium Chloride (Normal Saline 0.9%) 1,000 mls @ 1,000 mls/hr IV BOLUS ONE Stop: 04/19/19 14:26 Last Infusion: 04/19/19 16:05 Dose: 1,000 mls/hr Documented by: Admin: 04/19/19 15:40 Dose: 1,000 mls/hr Documented by: MARYAN Vital Signs Vital signs: Vital Signs - 8 hr 04/19/19 10:31 04/19/19 13:17 04/19/19 14:50 Temperature 97.9 F Pulse Rate 88 83 84 Respiratory Rate 20 16 16 Blood Pressure 150/54 H Blood Pressure [Right Arm] 134/56 L 164/72 H Pulse Oximetry 99 100 96 MDM - Recheck/Abnormal Lab/Rx <LOKESH Whittington- - Last Filed: 04/19/19 16:59> Lab Data Result diagrams: 04/19/19 12:55 04/19/19 12:45 Labs: Lab Results 04/19/19 04/19/19 04/19/19 Range/Units 12:45 12:55 12:55 WBC 9.2 (4.5-11.0) X10^3/uL RBC 4.40 L (4.5-5.9) X10^6/uL Hgb 14.8 (13.5-17.5) g/dL Hct 43.6 (41-53) % MCV 99.1 (80-100) fL MCH 33.7 (26-34) PG MCHC 34.0 (30-36) % RDW 13.2 (11.6-14.8) % Plt Count 249 (150-400) X10^3/uL Neut % (Auto) 64.8 (50-75) % Lymph % (Auto) 23.9 L (25-40) % [place] % (Auto) 9.9 (3-14) % Eos % (Auto) 0.7 L (2-4) % Baso % (Auto) 0.7 (0-2) % Neut # (Auto) 6000 (8794-1893) /uL Lymph # (Auto) 2200 (2811-3465) /uL [place] # (Auto) 900 (0-900) /uL Eos # (Auto) 100 (0-450) /uL Baso # (Auto) 100 (0-100) /uL Sodium 143 (137-145) mmol/L Potassium 4.5 (3.4-5.1) mmol/L Chloride 101 (98-107) mmol/L Carbon Dioxide 30 (22-32) mmol/L BUN 8 L (9-20) mg/dL Creatinine 0.70 (0.66-1.25) mg/dL Estimated GFR > 60.0 (>60) mL/min BUN/Creatinine Ratio 11.4 (6-22) Glucose 137 H (80-110) mg/dL Lactate (0.7-2.1) mmol/L Calcium 9.5 (8.4-10.2) mg/dL Total Bilirubin 0.6 (0.2-1.3) mg/dL AST 34 (17-59) IU/L ALT 16 (<50) IU/L Alkaline Phosphatase 89 (38-126) U/L Total Protein 7.4 (6.3-8.2) g/dL Albumin 4.1 (3.5-5.0) g/dL Globulin 3.3 (1.7-4.1) g/dL Albumin/Globulin Ratio 1.2 (1.0-2.8) Procalcitonin 0.06 (<0.5) ng/mL Ethyl Alcohol 216 H ( - 10) mg/dL 04/19/19 Range/Units 12:55 WBC (4.5-11.0) X10^3/uL RBC (4.5-5.9) X10^6/uL Hgb (13.5-17.5) g/dL Hct (41-53) % MCV (80-100) fL MCH (26-34) PG MCHC (30-36) % RDW (11.6-14.8) % Plt Count (150-400) X10^3/uL Neut % (Auto) (50-75) % Lymph % (Auto) (25-40) % [place] % (Auto) (3-14) % Eos % (Auto) (2-4) % Baso % (Auto) (0-2) % Neut # (Auto) (8459-1360) /uL Lymph # (Auto) (2707-7912) /uL [place] # (Auto) (0-900) /uL Eos # (Auto) (0-450) /uL Baso # (Auto) (0-100) /uL Sodium (137-145) mmol/L Potassium (3.4-5.1) mmol/L Chloride (98-107) mmol/L Carbon Dioxide (22-32) mmol/L BUN (9-20) mg/dL Creatinine (0.66-1.25) mg/dL Estimated GFR (>60) mL/min BUN/Creatinine Ratio (6-22) Glucose (80-110) mg/dL Lactate 3.4 H (0.7-2.1) mmol/L Calcium (8.4-10.2) mg/dL Total Bilirubin (0.2-1.3) mg/dL AST (17-59) IU/L ALT (<50) IU/L Alkaline Phosphatase (38-126) U/L Total Protein (6.3-8.2) g/dL Albumin (3.5-5.0) g/dL Globulin (1.7-4.1) g/dL Albumin/Globulin Ratio (1.0-2.8) Procalcitonin (<0.5) ng/mL Ethyl Alcohol ( - 10) mg/dL MDM Narrative Medical decision making narrative: The patient is a 64-year-old male well known to this department and presents for chief complaint of needing a dressing change after his left transmetatarsal amputation. Discharge summary was obtained from [facility]. Records were requested from [facility] and [facility], where the patient left Against Medical Advice a few days ago. Records were not obtain. The patient is grossly afebrile, non tachy, no hypotension. Basic labs were drawn given that the patient's inability to give a specific history, as well as his suspected intoxicated status. His alcohol was over 200, but he had clear speech, and was clinically sober. The patient urinated the bed several times during my interview. He has no leukocytosis, negative procalcitonin but his initial lactate was elevated 3.4. I feels as might be related to dehy dration, so he was given 2 L of IV fluid. However the patient self-extricated his IV and left the department. This was after nursing in the discussion that he left it would be against medical advice. Patient left against medical advice. <Brit Cervantes MD - Last Filed: 04/19/19 17:03> Lab Data Labs: Lab Results 04/19/19 04/19/19 04/19/19 Range/Units 12:45 12:55 12:55 WBC 9.2 (4.5-11.0) X10^3/uL RBC 4.40 L (4.5-5.9) X10^6/uL Hgb 14.8 (13.5-17.5) g/dL Hct 43.6 (41-53) % MCV 99.1 (80-100) fL MCH 33.7 (26-34) PG MCHC 34.0 (30-36) % RDW 13.2 (11.6-14.8) % Plt Count 249 (150-400) X10^3/uL Neut % (Auto) 64.8 (50-75) % Lymph % (Auto) 23.9 L (25-40) % [place] % (Auto) 9.9 (3-14) % Eos % (Auto) 0.7 L (2-4) % Baso % (Auto) 0.7 (0-2) % Neut # (Auto) 6000 (6504-7790) /uL Lymph # (Auto) 2200 (5187-3894) /uL [place] # (Auto) 900 (0-900) /uL Eos # (Auto) 100 (0-450) /uL Baso # (Auto) 100 (0-100) /uL Sodium 143 (137-145) mmol/L Potassium 4.5 (3.4-5.1) mmol/L Chloride 101 (98-107) mmol/L Carbon Dioxide 30 (22-32) mmol/L BUN 8 L (9-20) mg/dL Creatinine 0.70 (0.66-1.25) mg/dL Estimated GFR > 60.0 (>60) mL/min BUN/Creatinine Ratio 11.4 (6-22) Glucose 137 H (80-110) mg/dL Lactate (0.7-2.1) mmol/L Calcium 9.5 (8.4-10.2) mg/dL Total Bilirubin 0.6 (0.2-1.3) mg/dL AST 34 (17-59) IU/L ALT 16 (<50) IU/L Alkaline Phosphatase 89 (38-126) U/L Total Protein 7.4 (6.3-8.2) g/dL Albumin 4.1 (3.5-5.0) g/dL Globulin 3.3 (1.7-4.1) g/dL Albumin/Globulin Ratio 1.2 (1.0-2.8) Procalcitonin 0.06 (<0.5) ng/mL Ethyl Alcohol 216 H ( - 10) mg/dL 11/03/19 Range/Units 12:55 WBC (4.5-11.0) X10^3/uL RBC (4.5-5.9) X10^6/uL Hgb (13.5-17.5) g/dL Hct (41-53) % MCV (80-100) fL MCH (26-34) PG MCHC (30-36) % RDW (11.6-14.8) % Plt Count (150-400) X10^3/uL Neut % (Auto) (50-75) % Lymph % (Auto) (25-40) % [place] % (Auto) (3-14) % Eos % (Auto) (2-4) % Baso % (Auto) (0-2) % Neut # (Auto) (6031-8739) /uL Lymph # (Auto) (4134-6300) /uL [place] # (Auto) (0-900) /uL Eos # (Auto) (0-450) /uL Baso # (Auto) (0-100) /uL Sodium (137-145) mmol/L Potassium (3.4-5.1) mmol/L Chloride (98-107) mmol/L Carbon Dioxide (22-32) mmol/L BUN (9-20) mg/dL Creatinine (0.66-1.25) mg/dL Estimated GFR (>60) mL/min BUN/Creatinine Ratio (6-22) Glucose (80-110) mg/dL Lactate 3.4 H (0.7-2.1) mmol/L Calcium (8.4-10.2) mg/dL Total Bilirubin (0.2-1.3) mg/dL AST (17-59) IU/L ALT (<50) IU/L Alkaline Phosphatase (38-126) U/L Total Protein (6.3-8.2) g/dL Albumin (3.5-5.0) g/dL Globulin (1.7-4.1) g/dL Albumin/Globulin Ratio (1.0-2.8) Procalcitonin (<0.5) ng/mL Ethyl Alcohol ( - 10) mg/dL Discharge Plan Departure Patient Disposition: Left Against Medical Advice Prescriptions: No Action clonidine HCl 0.1 mg tablet 0.1 mg PO BEDTIME PRN (Reason: Anxiety) RF: 0 folic acid 1 mg Tablet 1 mg PO DAILY Qty: 30 RF: 0 losartan 50 mg Tablet 50 mg PO BID Qty: 60 RF: 0 carvedilol 12.5 mg tablet 12.5 mg PO BID RF: 0 docusate sodium [DOK] 100 mg Capsule 100 mg PO BID Qty: 5 RF: 0 lorazepam 1 mg Tablet 0 mg PO CIWAPRN PRN (Reason: Alcohol Withdrawal) Qty: 5 RF: 0 morphine 2 mg/mL Syringe 2 mg IV Q4HR PRN (Reason: Pain, Moderate (4-6)) Qty: 5 RF: 0 sennosides [senna] 8.6 mg Tablet 17.2 mg PO BEDTIME Qty: 5 RF: 0 Stand Alone Forms: Against Medical Advice
== END 2019-04-19 15:59 | disposition left against medical advice (07) ==
PROVIDERS: Emergency Provider Nurse Practitioner Family; PCP Student in an Organized Health Care Education/Training Program
DX: Z48.01 Encounter for change or removal of surgical wound dressing (principal); R79.89 Other specified abnormal findings of blood chemistry
CPT/HCPCS: 36415; 80053; 80320; 83605; 84145; 85025; 87070; 87075; 87077; 87147; 87186; 87205; 96360; 99283; 99284